=== PATIENT | female | born 1950 | race Caucasian/White ===

== ENCOUNTER 2024-06-17 19:19 | Inpatient (IN) | payer MEDICARE, OTHER, SELFPAY ==
[2024-06-17] VITALS (37 sets, daily range): BP systolic 62–104; BP diastolic 36–72; BMI 31.5
[2024-06-17 16:17] LABS: Glucose - Point of Care 346 mg/dl (70-99)
--- NOTE | 2024-06-17 16:46 | ED.GENMED ---
History of Present Illness
<Citlalli Colbert PA-C - Last Filed: 06/17/24 18:38>
General
Chief Complaint: Weakness
Source: patient and family
Time Seen by Provider: 06/17/24 16:30
History of Present Illness
History of Present Illness:
73yoF with a history of hypertension, hyperlipidemia, insulin-dependent diabetes, CKD, and bladder cancer with last treatment 6 months ago presenting with her sons for evaluation of generalized weakness. Son states that patient has been feeling
unwell for the past several days and has not been eating or drinking much. Patient had a fall around 3 AM this morning. Patient is not sure what exactly made her fall. Sons believe that it was due to her generalized weakness. Patient was on the
floor for about 2 to 3 hours. Patient became weaker this morning prompting her to come to the ED. Patient states her only current complaint is fatigue. Blood pressure is 78/36 on arrival. She denies any fevers, vomiting, diarrhea, chest pain,
shortness of breath, hematochezia, melena.
Phy Exam
<Citlalli Colbert PA-C - Last Filed: 06/17/24 18:38>
Physical Exam
Physical Exam:
Patient ill appearing, fatigued. She is alert and answering questions.
General Physical Exam
General Presentation: moderate distress
General Skin: warm and dry
ENT Exam
ENT Exam: normocephalic
Additional ENT: No external signs of head trauma
Eye Exam
Eye Exam: PERRL
Cardiovascular Exam
Cardiovascular Exam: tachycardia
Pulmonary Exam
Pulmonary Exam: lungs clear, no respiratory distress, no crackles and no wheezing
Gastrointestinal Exam
Gastrointestinal Exam: soft, non distended and tender (+Mild tenderness in suprapubic and LLQ regions)
Neurological Exam
Neurological Exam: alert and other (Moves all extremities on command)
Tristin Coma Scale
Eye Opening: Spontaneous
Verbal Response: Oriented
Motor Response: Obeys Commands
GCS Total Score: 15
Musculoskeletal Exam
Musculoskeletal Exam: other (No C/T/L spine tenderness)
Skin Exam
Skin Exam: normal color and warm/dry
<Shirley Marmolejo DO - Last Filed: 06/18/24 06:19>
Tristin Coma Scale
GCS Total Score: 15
Course
<Citlalli Colbert PA-C - Last Filed: 06/17/24 18:38>
Orders/Labs/Results
Orders:
Orders
06/17/24 Dinner
NPO
Allow oral meds: Yes
Allow clear liquids: Sips of Clears
06/17/24 16:28
Electrocardiogram (*1) Urgent
Reason for Study: Fatigue / Weakness
EKG- Treatment ONCE
06/17/24 16:35
Complete Blood Count/With Diff Urgent
Comprehensive Metabolic Panel Urgent
Creatine Phosphokinase Urgent
Comment: ADD ON
Direct Bilirubin Urgent
Comment: ADD ON
GGTP Urgent
Comment: ADD ON
Magnesium Urgent
Comment: ADD ON
Manual Differential Urgent
06/17/24 16:40
COVID-19 Antigen Urgent
Source: Nasal Swab
Influenza A+B Rapid Molecular Urgent
SHELIA Source: Nasal Swab
Specimen Description:
06/17/24 16:42
0.9% Sodium Chloride 1000 ml [Nss] 2,000 ml IV BOLUS
CR Chest Portable - 1 View Urgent
Comment:
Reason For Exam: Hypotension
Reason Study Needs to be Portable: Patient Unstable
06/17/24 16:45
CT Head W/o Iv Contrast Urgent
Comment:
Reason For Exam: Unwitnessed fall, weakness
06/17/24 16:48
Add On- LAB Urgent
Tests Added?: magnesium
06/17/24 16:49
Lactate Level [Lactic Acid] Urgent
PTT Urgent
Prothrombin Time Urgent
Blood Culture Routine
SHELIA Source: Blood/Venous
Specimen Description:
06/17/24 16:50
Troponin I Urgent
Blood Culture Urgent
SHELIA Source: Blood/Venous
Specimen Description:
06/17/24 16:51
Urinalysis Reflex To Culture Urgent
Date Specimen was Collected: 06/17/24
Time Specimen was Collected: 16:51
Urine Microscopic Reflex Cult Urgent
Urine Culture Urgent
SHELIA Source: U
Specimen Description:
Date Specimen was Collected: 06/17/24
Time Specimen was Collected: 16:51
06/17/24 17:10
Lactated Ringers [Lr] 1,000 ml IV BOLUS
06/17/24 17:11
Piperacillin/Tazo 4.5 Gram [Zosyn] 4.5 gram in 100 ml IV NOW
06/17/24 17:29
CT Chest/abd/pel Wo Iv Cont Urgent
Comment:
Reason For Exam: Sepsis, hypotension
06/17/24 17:35
Bedside Glucose- Treatment Q1H
IV Insert/Care/Rem.- Treatment PRN
06/17/24 17:42
Venous Blood Gas Urgent
%Oxygen/Room Air: room air
NORepinephrine 4 MG/250 ML [Levophed] 4 mg in 250 ml IV NOW
Initial dose in mcg/min, then titrate:: 2
Titrate to keep:: MAP > 65 mmHg
Titrate by mcg/min:: 1-2 mcg/min
Frequency of titrations (minutes):: 5
Maximum dose in ICU in mcg/min:: 30
Maximum dose in IMU in mcg/min:: 8
Maximum dose in IVU in mcg/min:: 4
Begin to taper infusion when:: Remained at goal for 4hrs
Taper by mcg/min:: 1-2 mcg/min
Frequency of taper (minutes) if patient maintains goal:: 30
Taper to off?: Yes
If infusion off & no longer maintaining goal:: Contact Provider
06/17/24 17:44
Reg Insulin 100 Units/100 ml [Novolin R Insulin Infusion] 100 units in 100 ml IV NOW
06/17/24 18:00
KCl 20 Meq/0.9%Sodchl 1000 ml [NSS with KCL 20 MEQ] 20 meq in 1,000 ml IV 250 mls/hr
06/17/24 18:21
Admit/Transfer Patient As Directed
Co-Sign Provider:
Level of Care: Inpatient admission
Assign to:: ICU
Physician / Group: Hyun
Diagnosis: Septic shock, KRISTEN
Reason for Hospitalization: Sepsis, KRISTEN, Flu B
Expected length of stay greater than two midnights?: Yes
ELOS- Estimated Length of Stay in days: 5
I certify the patient meets the requirements for IP care: Yes
PRN Pain Medication Management As Directed
May give lesser potent ordered pain med per pt: Yes
preference::
Protocol:: Medication orders for pain may be administered in a
manner that supports deferring to patient preference
when the pt is:
- Requesting an ordered lesser potent pain medication.
Least to most potent pain medications are defined
as: acetaminophen < NSAID < tramadol < opioids
(morphine, oxycodone, hydromorphone).
- Requesting a lesser dose of the same medication IF
ORDERED.
- Requesting a less intrusive route of administration
if both routes are prescribed by the provider (PO <
IV).
06/17/24 18:22
Code Status As Directed
Resuscitation Status: Full Code
06/17/24 18:41
Aspirin Chewable [Low Strength Aspirin] 324 mg PO NOW STA
06/17/24 18:45
Add On- LAB Routine
Tests Added?: direct bilirubin, GGT
Vancomycin [Vancocin] 2,000 mg 0.9% Sodium Chloride 500 ml [Nss] 500 ml IV NOW
06/17/24 19:44
B-Hydroxybutyrate Urgent
Basic Metabolic Panel Q2H
06/17/24 20:00
VANCOMYCIN Pharmacy to Dose [VANCOCIN Pharmacy to Dose] 1 each Pharmacy To Prepare [Call Pharmacy To Prepare] 0 ml IV PER PROTOCOL
06/17/24 20:23
Acetaminophen [Tylenol] 650 mg PO Q6HPRN PRN
KCl 20 Meq/0.9%Sodchl 1000 ml [NSS with KCL 20 MEQ] 20 meq in 1,000 ml IV 150 mls/hr
Oseltamivir Phosphate [Tamiflu] 30 mg PO DAILY
Reg Insulin 100 Units/100 ml [Novolin R Insulin Infusion] 100 units in 100 ml IV PER PROTOCOL
Initial dose in units/hr, then titrate:: 9
06/17/24 20:23
Plastics Tooling Engineer Consult Routine
Consulting Provider: Shailesh Baker
Was physician already notified: Yes
Activity As Directed
Activity Level: Bedrest
Bedside Glucose Monitoring As Directed
Frequency: Q1H
I&O [Intake/ Output] As Directed
Frequency: q12h
Notify MD As Directed
Notify physician if: Nurse to contact provider when glucose reaches 250 to obtain orders for D5 0.45 NaCl
Vital Signs As Directed
Frequency: Per unit guidelines
DX Deep Vein Thrombosis Video Routine
06/17/24 20:59
Basic Metabolic Panel Q2
06/17/24 23:00
Lactic Acid Routine
Troponin I Q6H
06/18/24 00:00
Heparin 5,000 units SC Q8
Piperacillin/Tazo 2.25 Gram [Zosyn] 2.25 grams in 50 ml IV Q8H
06/18/24 06:10
CBC/With Diff [Complete Blood Count/With Diff] IN AM
CMP [Comprehensive Metabolic Panel] IN AM
Glycohemoglobin (HgbA1c) IN AM
Troponin I Q6H
Vancomycin Random IN AM
06/18/24 08:00
Aspirin Chewable [Low Strength Aspirin] 81 mg PO DAILY
06/18/24 11:00
Troponin I Q6H
06/19/24 06:00
CBC/With Diff [Complete Blood Count/With Diff] IN AM
CMP [Comprehensive Metabolic Panel] IN AM
Abnormal Lab Results
06/17/24 06/17/24 06/17/24
16:15 16:35 16:49
WBC 28.6 H 10^3/uL
(4.8-10.8)
MCH 31.3 H pg
(27.0-31.0)
Plt Count 60 L 10^3/uL
(130-400)
MPV 11.1 H fL
(7.4-10.4)
Abs Neuts (Manual) 18.3 H 10^3/uL
(1.4-6.5)
Band Neutrophils 16 H %
(0-3)
Lymphocytes (Manual) 8 L %
(20-51)
Monocytes (Manual) 11 H %
(2-9)
PT 14.8 H Sec
(11.4-14.6)
APTT 38.1 H Sec
(23.4-35.0)
VBG pH
VBG pCO2
VBG pO2
VBG HCO3
Carbon Dioxide 10 L* mmol/L
(22-30)
BUN 71 H mg/dl
(7-17)
Creatinine 4.9 H* mg/dL
(0.6-1.0)
Glucose 329 H mg/dl
(70-99)
Lactic Acid 5.8 H* mmol/L
(0.7-2.0)
Total Bilirubin 6.2 H mg/dl
(0.2-1.3)
Direct Bilirubin 1.2 H mg/dl
(0.0-0.4)
GGT 859 H U/L
(12-43)
AST 396 H U/L
(14-36)
ALT 233 H U/L
(0-35)
Alkaline Phosphatase 190 H U/L
(38-126)
Creatine Kinase 4572 H U/L
(30-135)
Troponin I
Total Protein 6.1 L g/dl
(6.3-8.2)
Urine Ketones
Ur Occult Blood Reflex
Urine Nitrite (Reflex)
Urine Bilirubin
Leukocyte Esterase Rfl
Urine WBC (Reflex)
Urine Glucose
Urine Albumin (Reflex)
POC Glucose 346 H mg/dl
(70-99)
06/17/24 06/17/24 06/17/24
16:50 16:51 17:42
WBC
MCH
Plt Count
MPV
Abs Neuts (Manual)
Band Neutrophils
Lymphocytes (Manual)
Monocytes (Manual)
PT
APTT
VBG pH 7.23 L
(7.32-7.43)
VBG pCO2 34 L mmHg
(35-48)
VBG pO2 53 H mmHg
(30-50)
VBG HCO3 14.2 L mmol/L
(22-27)
Carbon Dioxide
BUN
Creatinine
Glucose
Lactic Acid
Total Bilirubin
Direct Bilirubin
GGT
AST
ALT
Alkaline Phosphatase
Creatine Kinase
Troponin I 7.940 H* ng/ml
Total Protein
Urine Ketones Trace A
(Negative)
Ur Occult Blood Reflex 4+ A
(Negative)
Urine Nitrite (Reflex) Positive A
(Negative)
Urine Bilirubin 2+ A
(Negative)
Leukocyte Esterase Rfl 2+ A
(Negative)
Urine WBC (Reflex) >100 A /HPF
(0-5)
Urine Glucose 1+ A
(Negative)
Urine Albumin (Reflex) 3+ A
(Neg - Trace)
POC Glucose
06/17/24 06/17/24
18:08 19:05
WBC
MCH
Plt Count
MPV
Abs Neuts (Manual)
Band Neutrophils
Lymphocytes (Manual)
Monocytes (Manual)
PT
APTT
VBG pH
VBG pCO2
VBG pO2
VBG HCO3
Carbon Dioxide
BUN
Creatinine
Glucose
Lactic Acid
Total Bilirubin
Direct Bilirubin
GGT
AST
ALT
Alkaline Phosphatase
Creatine Kinase
Troponin I
Total Protein
Urine Ketones
Ur Occult Blood Reflex
Urine Nitrite (Reflex)
Urine Bilirubin
Leukocyte Esterase Rfl
Urine WBC (Reflex)
Urine Glucose
Urine Albumin (Reflex)
POC Glucose 287 H mg/dl 285 H mg/dl
(70-99) (70-99)
06/17/24 16:35
06/17/24 17:32
Vital Signs
Initial and Last Documented VS:
Initial Vital Signs
Temp Pulse Resp BP Pulse Ox
97.3 F 115 20 78/36 94
06/17/24 16:14 06/17/24 16:14 06/17/24 16:14 06/17/24 16:14 06/17/24 16:14
Last Documented Vital Signs
Temp Pulse Resp BP Pulse Ox
98.8 F 93 28 99/61 94
06/18/24 01:00 06/18/24 04:30 06/18/24 04:30 06/18/24 04:30 06/18/24 04:30
<Shirley Marmolejo, DO - Last Filed: 06/18/24 06:19>
Orders/Labs/Results
Orders:
Orders
06/17/24 Dinner
NPO
Allow oral meds: Yes
Allow clear liquids: Sips of Clears
06/17/24 16:28
Electrocardiogram (*1) Urgent
Reason for Study: Fatigue / Weakness
EKG- Treatment ONCE
06/17/24 16:35
Complete Blood Count/With Diff Urgent
Comprehensive Metabolic Panel Urgent
Creatine Phosphokinase Urgent
Comment: ADD ON
Direct Bilirubin Urgent
Comment: ADD ON
GGTP Urgent
Comment: ADD ON
Magnesium Urgent
Comment: ADD ON
Manual Differential Urgent
06/17/24 16:40
COVID-19 Antigen Urgent
Source: Nasal Swab
Influenza A+B Rapid Molecular Urgent
SHELIA Source: Nasal Swab
Specimen Description:
06/17/24 16:42
0.9% Sodium Chloride 1000 ml [Nss] 2,000 ml IV BOLUS
CR Chest Portable - 1 View Urgent
Comment:
Reason For Exam: Hypotension
Reason Study Needs to be Portable: Patient Unstable
06/17/24 16:45
CT Head W/o Iv Contrast Urgent
Comment:
Reason For Exam: Unwitnessed fall, weakness
06/17/24 16:48
Add On- LAB Urgent
Tests Added?: magnesium
06/17/24 16:49
Lactate Level [Lactic Acid] Urgent
PTT Urgent
Prothrombin Time Urgent
Blood Culture Routine
SHELIA Source: Blood/Venous
Specimen Description:
06/17/24 16:50
Troponin I Urgent
Blood Culture Urgent
SHELIA Source: Blood/Venous
Specimen Description:
06/17/24 16:51
Urinalysis Reflex To Culture Urgent
Date Specimen was Collected: 06/17/24
Time Specimen was Collected: 16:51
Urine Microscopic Reflex Cult Urgent
Urine Culture Urgent
SHELIA Source: U
Specimen Description:
Date Specimen was Collected: 06/17/24
Time Specimen was Collected: 16:51
06/17/24 17:10
Lactated Ringers [Lr] 1,000 ml IV BOLUS
06/17/24 17:11
Piperacillin/Tazo 4.5 Gram [Zosyn] 4.5 gram in 100 ml IV NOW
06/17/24 17:29
CT Chest/abd/pel Wo Iv Cont Urgent
Comment:
Reason For Exam: Sepsis, hypotension
06/17/24 17:35
Bedside Glucose- Treatment Q1H
IV Insert/Care/Rem.- Treatment PRN
06/17/24 17:42
Venous Blood Gas Urgent
%Oxygen/Room Air: room air
NORepinephrine 4 MG/250 ML [Levophed] 4 mg in 250 ml IV NOW
Initial dose in mcg/min, then titrate:: 2
Titrate to keep:: MAP > 65 mmHg
Titrate by mcg/min:: 1-2 mcg/min
Frequency of titrations (minutes):: 5
Maximum dose in ICU in mcg/min:: 30
Maximum dose in IMU in mcg/min:: 8
Maximum dose in IVU in mcg/min:: 4
Begin to taper infusion when:: Remained at goal for 4hrs
Taper by mcg/min:: 1-2 mcg/min
Frequency of taper (minutes) if patient maintains goal:: 30
Taper to off?: Yes
If infusion off & no longer maintaining goal:: Contact Provider
06/17/24 17:44
Reg Insulin 100 Units/100 ml [Novolin R Insulin Infusion] 100 units in 100 ml IV NOW
06/17/24 18:00
KCl 20 Meq/0.9%Sodchl 1000 ml [NSS with KCL 20 MEQ] 20 meq in 1,000 ml IV 250 mls/hr
06/17/24 18:21
Admit/Transfer Patient As Directed
Co-Sign Provider:
Level of Care: Inpatient admission
Assign to:: ICU
Physician / Group: Hyun
Diagnosis: Septic shock, KRISTEN
Reason for Hospitalization: Sepsis, KRISTEN, Flu B
Expected length of stay greater than two midnights?: Yes
ELOS- Estimated Length of Stay in days: 5
I certify the patient meets the requirements for IP care: Yes
PRN Pain Medication Management As Directed
May give lesser potent ordered pain med per pt: Yes
preference::
Protocol:: Medication orders for pain may be administered in a
manner that supports deferring to patient preference
when the pt is:
- Requesting an ordered lesser potent pain medication.
Least to most potent pain medications are defined
as: acetaminophen < NSAID < tramadol < opioids
(morphine, oxycodone, hydromorphone).
- Requesting a lesser dose of the same medication IF
ORDERED.
- Requesting a less intrusive route of administration
if both routes are prescribed by the provider (PO <
IV).
06/17/24 18:22
Code Status As Directed
Resuscitation Status: Full Code
06/17/24 18:41
Aspirin Chewable [Low Strength Aspirin] 324 mg PO NOW STA
06/17/24 18:45
Add On- LAB Routine
Tests Added?: direct bilirubin, GGT
Vancomycin [Vancocin] 2,000 mg 0.9% Sodium Chloride 500 ml [Nss] 500 ml IV NOW
06/17/24 19:44
B-Hydroxybutyrate Urgent
Basic Metabolic Panel Q2H
06/17/24 20:00
VANCOMYCIN Pharmacy to Dose [VANCOCIN Pharmacy to Dose] 1 each Pharmacy To Prepare [Call Pharmacy To Prepare] 0 ml IV PER PROTOCOL
06/17/24 20:23
Acetaminophen [Tylenol] 650 mg PO Q6HPRN PRN
KCl 20 Meq/0.9%Sodchl 1000 ml [NSS with KCL 20 MEQ] 20 meq in 1,000 ml IV 150 mls/hr
Oseltamivir Phosphate [Tamiflu] 30 mg PO DAILY
Reg Insulin 100 Units/100 ml [Novolin R Insulin Infusion] 100 units in 100 ml IV PER PROTOCOL
Initial dose in units/hr, then titrate:: 9
06/17/24 20:23
Plastics Tooling Engineer Consult Routine
Consulting Provider: Shailesh Baker
Was physician already notified: Yes
Activity As Directed
Activity Level: Bedrest
Bedside Glucose Monitoring As Directed
Frequency: Q1H
I&O [Intake/ Output] As Directed
Frequency: q12h
Notify MD As Directed
Notify physician if: Nurse to contact provider when glucose reaches 250 to obtain orders for D5 0.45 NaCl
Vital Signs As Directed
Frequency: Per unit guidelines
DX Deep Vein Thrombosis Video Routine
06/17/24 20:59
Basic Metabolic Panel Q2
06/17/24 23:00
Lactic Acid Routine
Troponin I Q6H
06/18/24 00:00
Heparin 5,000 units SC Q8
Piperacillin/Tazo 2.25 Gram [Zosyn] 2.25 grams in 50 ml IV Q8H
06/18/24 06:10
CBC/With Diff [Complete Blood Count/With Diff] IN AM
CMP [Comprehensive Metabolic Panel] IN AM
Glycohemoglobin (HgbA1c) IN AM
Troponin I Q6H
Vancomycin Random IN AM
06/18/24 08:00
Aspirin Chewable [Low Strength Aspirin] 81 mg PO DAILY
06/18/24 11:00
Troponin I Q6H
06/19/24 06:00
CBC/With Diff [Complete Blood Count/With Diff] IN AM
CMP [Comprehensive Metabolic Panel] IN AM
Abnormal Lab Results
06/17/24 06/17/24 06/17/24
16:15 16:35 16:49
WBC 28.6 H 10^3/uL
(4.8-10.8)
MCH 31.3 H pg
(27.0-31.0)
Plt Count 60 L 10^3/uL
(130-400)
MPV 11.1 H fL
(7.4-10.4)
Abs Neuts (Manual) 18.3 H 10^3/uL
(1.4-6.5)
Band Neutrophils 16 H %
(0-3)
Lymphocytes (Manual) 8 L %
(20-51)
Monocytes (Manual) 11 H %
(2-9)
PT 14.8 H Sec
(11.4-14.6)
APTT 38.1 H Sec
(23.4-35.0)
VBG pH
VBG pCO2
VBG pO2
VBG HCO3
Carbon Dioxide 10 L* mmol/L
(22-30)
BUN 71 H mg/dl
(7-17)
Creatinine 4.9 H* mg/dL
(0.6-1.0)
Glucose 329 H mg/dl
(70-99)
Lactic Acid 5.8 H* mmol/L
(0.7-2.0)
Total Bilirubin 6.2 H mg/dl
(0.2-1.3)
Direct Bilirubin 1.2 H mg/dl
(0.0-0.4)
GGT 859 H U/L
(12-43)
AST 396 H U/L
(14-36)
ALT 233 H U/L
(0-35)
Alkaline Phosphatase 190 H U/L
(38-126)
Creatine Kinase 4572 H U/L
(30-135)
Troponin I
Total Protein 6.1 L g/dl
(6.3-8.2)
Urine Ketones
Ur Occult Blood Reflex
Urine Nitrite (Reflex)
Urine Bilirubin
Leukocyte Esterase Rfl
Urine WBC (Reflex)
Urine Glucose
Urine Albumin (Reflex)
POC Glucose 346 H mg/dl
(70-99)
06/17/24 06/17/24 06/17/24
16:50 16:51 17:42
WBC
MCH
Plt Count
MPV
Abs Neuts (Manual)
Band Neutrophils
Lymphocytes (Manual)
Monocytes (Manual)
PT
APTT
VBG pH 7.23 L
(7.32-7.43)
VBG pCO2 34 L mmHg
(35-48)
VBG pO2 53 H mmHg
(30-50)
VBG HCO3 14.2 L mmol/L
(22-27)
Carbon Dioxide
BUN
Creatinine
Glucose
Lactic Acid
Total Bilirubin
Direct Bilirubin
GGT
AST
ALT
Alkaline Phosphatase
Creatine Kinase
Troponin I 7.940 H* ng/ml
Total Protein
Urine Ketones Trace A
(Negative)
Ur Occult Blood Reflex 4+ A
(Negative)
Urine Nitrite (Reflex) Positive A
(Negative)
Urine Bilirubin 2+ A
(Negative)
Leukocyte Esterase Rfl 2+ A
(Negative)
Urine WBC (Reflex) >100 A /HPF
(0-5)
Urine Glucose 1+ A
(Negative)
Urine Albumin (Reflex) 3+ A
(Neg - Trace)
POC Glucose
06/17/24 06/17/24
18:08 19:05
WBC
MCH
Plt Count
MPV
Abs Neuts (Manual)
Band Neutrophils
Lymphocytes (Manual)
Monocytes (Manual)
PT
APTT
VBG pH
VBG pCO2
VBG pO2
VBG HCO3
Carbon Dioxide
BUN
Creatinine
Glucose
Lactic Acid
Total Bilirubin
Direct Bilirubin
GGT
AST
ALT
Alkaline Phosphatase
Creatine Kinase
Troponin I
Total Protein
Urine Ketones
Ur Occult Blood Reflex
Urine Nitrite (Reflex)
Urine Bilirubin
Leukocyte Esterase Rfl
Urine WBC (Reflex)
Urine Glucose
Urine Albumin (Reflex)
POC Glucose 287 H mg/dl 285 H mg/dl
(70-99) (70-99)
06/17/24 16:35
06/17/24 17:32
Vital Signs
Initial and Last Documented VS:
Initial Vital Signs
Temp Pulse Resp BP Pulse Ox
97.3 F 115 20 78/36 94
06/17/24 16:14 06/17/24 16:14 06/17/24 16:14 06/17/24 16:14 06/17/24 16:14
Last Documented Vital Signs
Temp Pulse Resp BP Pulse Ox
98.8 F 93 28 99/61 94
06/18/24 01:00 06/18/24 04:30 06/18/24 04:30 06/18/24 04:30 06/18/24 04:30
[place];Citlalli Colbert PA-C - Last Filed: 06/17/24 18:38>
MDM/Problems Addressed
Differential Diagnosis Includes:
73yoF here with generalized weakness x several days. Also had a fall last night. Patient hypotensive on arrival to [facility]. Fingerstick glucose in triage is 346. She is ill-appearing on exam. Her only complaint is fatigue. She has mild suprapubic
and left lower quadrant tenderness on exam. Exam otherwise nonfocal. Differential diagnosis includes but is not limited to: Dehydration, KRISTEN, sepsis, DKA
Initial ED plan: Two large bore IVs established by nursing staff. 2L IV NS hung to gravity. Check full medical workup including blood cultures, cardiac labs, CK, EKG, UA, and CT head and abdomen.
<Citlalli Colbert PA-C - Last Filed: 06/17/24 18:38>
*EKG
Interpreted by ED Provider?: Yes
EKG Intrepretation Date: 06/17/24
Heart Rate: 109
Rate: tachycardiac
Rhythm: sinus
Interval: long QT (QTc 570)
QRS Pattern: normal QRS
Ischemia: non-specific ST changes
<Shirley Marmolejo DO - Last Filed: 06/18/24 06:19>
*Critical Care Note
Total Time (30-74mins, 75-104mins- exclusive of procedures): 60
comment:
The high probability of a clinically significant, sudden or life threatening deterioration of the cardiovascular, distributive system(s) required my full and direct attention, intervention and personal management. The aggregate critical care time
was 45 minutes. This time is in addition to time spent performing reported procedures but includes the following:
[x] Data Review and interpretation
[x] Patient assessment and monitoring of vital signs
[x] Documentation
[x] Medication orders and management
<Citlalli Colbert PA-C - Last Filed: 06/17/24 18:38>
Update Note
Update Note:
Small amount of urine obtained on straight cath by nursing staff. Urine noted to be purulent. UA is nitrite positive with >100 WBCs. She is also positive for influenza B. WBC 28 and lactate 5.8. Bicarb 10. CK 4500. Troponin 7.9. No ST elevations
seen on EKG. IV Zosyn ordered. Patient received 30 cc/kg of IV fluids with persistent hypotension. Levophed was initiated. Insulin drip also ordered. Patient admitted for further management.
ED Attending Note
<Citlalli Colbert PA-C - Last Filed: 06/17/24 18:38>
-
Portions of this chart may have been created with voice recognition software.� Occasional wrong word or��sound alike� substitutions may have occurred due to the inherent limitations of voice recognition software.
<Shirley Marmolejo DO - Last Filed: 06/18/24 06:19>
ED Attending Note
Patient seen and examined by attending physician: Yes
I performed the substantive portion of visit, reviewed & personally made and approve the management plan that is documented in note by myself or BETHANY.: Yes
I performed a history and physical exam of patient and discussed management with resident, I reviewed resident's note and agree with documented findings and plan of care.: Yes
ED Attending Note:
73-year-old female with history of hypertension, hyperlipidemia, diabetes presenting to the emergency department for generalized weakness and fall. Patient presents with family. Patient notes that she had a fall out of bed around 3 AM last
evening, unclear details. Patient herself is currently denying any acute complaints, however family at bedside reports for the past 3 days she has been complaining of generalized weakness and fatigue, and generally not feeling well. No report of
any fever. Patient denying any chest pain, difficulty breathing, cough. No recent sick contacts. Pain or vomiting. Vital signs are abnormal with tachycardia and hypotension.
On exam, patient is unwell in appearance, however no acute distress. She is awake, alert. Unremarkable cardiac and pulmonary exam. No physical signs of trauma. No midline cervical tenderness. On abdominal exam, generalized tenderness to the
lower abdomen, most notable in the suprapubic abdomen. Son at bedside reports history of bladder cancer in the past, with last check about 6 months ago. Pelvis is stable, lower extremities with normal range of motion, no deformities. Given
patient's complaint and presenting vital signs, concerning for severe dehydration versus sepsis. Patient currently afebrile. Plan for laboratory analysis, lactic acid, blood culture. Patient with IV fluids running. Will obtain urinalysis and CT
abdominal imaging. Will also swab for COVID and flu.
17:00 - Blood pressure is responding to fluids. Patient is flu positive, which could be contributing to patient's symptoms. Per nurse, patient straight catheter urine, purulent with minimal blood. And concern for possible infectious component to
patient's symptoms
17:15 -urine is grossly positive for infection and lactic acid is greater than 4. In the setting of hypotension with elevated lactic acid, concern for septic shock. Will administer full 30 cc/kg fluid bolus. Broad-spectrum antibiotics ordered.
Plan for admission, pending abdominal imaging.
17:30 -patient with metabolic acidosis, gap with hyperglycemia. Concern for DKA, likely secondary process from underlying infection and septic shock. Will start insulin drip. Blood pressure continues to improve, however remains low, may need
Levophed. Patient with acute kidney injury and elevated troponin, suspected ischemic demand. No STEMI criteria on EKG.
18:10 -CT shows concern for staghorn calculi to the right kidney, with concern for emphysematous pyelitis. Patient to be admitted to the ICU. Blood pressure remains low, plan to start Levophed
Discharge Plan
Departure
Patient Disposition: Admit
Date of Disposition: 06/17/24
Time of Disposition: 17:51
Presentation/result/management discussed w/ accepting MD/DO: Hospitalist
Discharge Problem:
Septic shock, Diabetic ketoacidosis, Urinary tract infection, Influenza B, Acute kidney injury, Rhabdomyolysis, Elevated troponin
Interventions
Interventions:
*Risk Screen - Suicide Last Done: 06/17/24 16:14
*General Assessment Last Done: 06/17/24 16:14
*Neglect/Abuse Screening Last Done: 06/17/24 16:14
ED- Fall Risk Assessment Last Done: 06/17/24 20:14
*ED COVID-19 Vaccine History Last Done: 06/17/24 20:14
*Nursing Disposition Last Done: 06/17/24 20:14
ED- Cardiac Assessment Last Done: 06/17/24 17:01
ED- Neurological Assessment Last Done: 06/17/24 17:01
ED- Pulmonary Assessment Last Done: 06/17/24 17:01
Discharge Date and Time
Discharge Date/Time: 06/17/24 20:15
[2024-06-17] MEDS: NSS 2000 IV (16:53)
[2024-06-17 16:57] LABS: Urine Albumin 3+ (Neg - Trace); Urine Bilirubin 2+ (Negative); Urine Character Very Cloudy (Clear); Urine Color Amber; Urine Glucose 1+ (Negative); Urine Ketone Trace (Negative); Urine Leukocyte 2+ (Negative); Urine Nitrite Positive (Negative); Urine Occult Blood 4+ (Negative); Urine Specific Gravity 1.015 (<1.030); Urine Urobilinogen 1+ (Neg - 1+)
[2024-06-17 17:09] LABS: Urine White Cell >100 /HPF (0-5)
[2024-06-17 17:10] LABS: INR 1.18; PT 14.8 Sec (11.4-14.6)
[2024-06-17 17:11] LABS: APTT 38.1 Sec (23.4-35.0)
[2024-06-17 17:12] LABS: Lactic Acid 5.8 mmol/L (0.7-2.0)
[2024-06-17] MEDS: LR 1000 IV (17:17)
[2024-06-17] MEDS: ZOSYN 100 IV (17:19)
[2024-06-17 17:20] LABS: Hematocrit 42.2 % (37.0-47.0); Hemoglobin 15.3 g/dL (12.0-16.0); Mean Corp Hgb Conc. 36.3 g/dL (33.0-37.0); Mean Corpuscular Hgb 31.3 pg (27.0-31.0); Mean Corpuscular Volume 86.3 fL (81.0-99.0); Mean Platelet Volume 11.1 fL (7.4-10.4); Platelet Count 60 10^3/uL (130-400); Red Blood Cell Count 4.89 10^6/uL (4.20-5.40); Red Cell Dist. Width 14.5 % (11.5-14.5); White Blood Cell Count 28.6 10^3/uL (4.8-10.8)
[2024-06-17 17:27] LABS: Absolute Neutrophils -Man Diff 18.3 10^3/uL (1.4-6.5); Band Neutrophils 16 % (0-3); Eosinophils 2 % (0-6); Lymphocytes 8 % (20-51); Metamyelocytes 13 % (-); Monocytes 11 % (2-9); Myelocytes 2 % (-); Segmented Neutrophils 48 % (42-75)
[2024-06-17 17:28] LABS: Normal RBC Morphology Yes; Platelets Checked Yes; Total Cells Counted 100
[2024-06-17 17:29] LABS: ALT (SGPT) 233 U/L (0-35); AST (SGOT) 396 U/L (14-36); Albumin 4.1 g/dl (3.5-5.0); Alkaline Phosphatase 190 U/L (38-126); Blood Urea Nitrogen 71 mg/dl (7-17); Calcium 10.2 mg/dl (8.4-10.2); Carbon Dioxide 10 mmol/L (22-30); Chloride 99 mmol/L (98-107); Creatine Phosphokinase 4572 U/L (30-135); Estimated Creatinine Clearance 11 ml/min; Glucose 329 mg/dl (70-99); Magnesium 1.7 mg/dl (1.6-2.3); Sodium 135 mmol/L (135-145); Total Bilirubin 6.2 mg/dl (0.2-1.3); Total Protein 6.1 g/dl (6.3-8.2); eGFR 8.78
[2024-06-17 17:46] LABS: Venous Blood Gas B.E. -12.3 mmol/L (-4 to +4); Venous Blood Gas HCO3 14.2 mmol/L (22-27); Venous Blood Gas O2 Sat % 83.7 %; Venous Blood Gas pCO2 34 mmHg (35-48); Venous Blood Gas pH 7.23 (7.32-7.43); Venous Blood Gas pO2 53 mmHg (30-50)
[2024-06-17] MEDS: LEVOPHED 250 IV (17:49)
[2024-06-17 18:10] LABS: Glucose - Point of Care 287 mg/dl (70-99)
[2024-06-17] MEDS: NOVOLIN R INSULIN INFUSION 100 IV (18:10)
--- NOTE | 2024-06-17 18:30 | HPS.HSE ---
Family Physician
-
Family Physician: NOT KNOW UNKNOWN - PT DOES
Chief Complaint
-
Weakness, cough, confusion
History of Present Illness
73-year-old female here complaining of generalized weakness, cough, anorexia. Family also noted confusion. Symptoms started 24 to 48 hours ago. Cough is dry in nature. No known sick contacts.
Did not eat or drink today. Last used her insulin yesterday. Has never been admitted to our hospital before.
Medical History
Past Medical History
Past Medical History: Reports Other
Additional Past Medical History:
DM2
Essential hypertension
Hyperlipidemia
Chronic kidney disease
Bladder cancer
Past Surgical History: Reports Cholecystectomy and Other (Bladder tumor resection)
Social History
Tobacco: Non-smoker
Alcohol: None
Drug: None
Living: With Family
Family History
Family History: Not pertinent
Allergies / Home Medications
Allergies reflects when Allergies were last updated in [employer].
Home Medications with original date entered in [employer]
Allergy/Medication List:
Allergies
Allergy/AdvReac Type Severity Reaction Status Date / Time
No Known Allergies Allergy Unverified 06/17/24 16:14
Home Medications
atorvastatin 40 mg tablet 40 mg PO DAILY 06/17/24
canagliflozin 100 mg tablet (Invokana) 100 mg PO DAILY 06/17/24
hydrochlorothiazide 25 mg tablet 5 mg PO DAILY 06/17/24
ramipril 5 mg capsule 5 mg PO DAILY 06/17/24
Review of Systems
-
History Source: Patient and Family
A 12 point ROS was completed and negative except as noted: Yes
Constitutional: Reports Fatigue
Respiratory: Reports Cough
Physical Exam
Vital Signs
Vital Signs
Temp Pulse Resp BP Pulse Ox
97.3 F 105 25 86/51 96
06/17/24 16:14 09/07/24 18:15 06/17/24 18:15 06/17/24 18:13 06/17/24 18:15
Physical Exam
General: Well Developed, Well Nourished, No Apparent Distress and Comfortable
HEENT: NormoCephalic and Anicteric; No Moist mucous membranes
Respiratory: Clear
Cardiac: S1/S2, Regular Rhythm and Tachycardia
GI: Soft, Non Tender and Non Distended
Genito-urinary: Deferred by me
Musculoskeletal: No Clubbing, No Cyanosis and No Edema
Skin: Warm and Dry
Neuro: Awake, Alert and Oriented
Hematologic/Lymphatic: No Lymphadenopathy
Psych: Calm
Laboratory Results
-
06/17/24 16:35
Laboratory Results
PT 14.8 Sec (11.4-14.6) H 06/17/24 16:49
INR 1.18 06/17/24 16:49
APTT 38.1 Sec (23.4-35.0) H 06/17/24 16:49
Lactic Acid 5.8 mmol/L (0.7-2.0) H* 06/17/24 16:49
Total Bilirubin 6.2 mg/dl (0.2-1.3) H 06/17/24 16:35
AST 396 U/L (14-36) H 06/17/24 16:35
ALT 233 U/L (0-35) H 06/17/24 16:35
Alkaline Phosphatase 190 U/L (38-126) H 06/17/24 16:35
Troponin I 7.940 ng/ml H* 06/17/24 16:50
Impression/Plan
-
Septic shock -source unclear. Differential diagnosis includes bacterial versus viral sepsis. Influenza B noted to be positive. Urinalysis is abnormal. Await blood and urine cultures.
Start broad-spectrum antibiotics. Start Tamiflu. Admit to ICU. Continue IV fluids. Consult ear pull machine operator.
Check COVID antigen. .
Lactic acidosis due to sepsis.
Acute metabolic encephalopathy -likely due to septic shock, KRISTEN, critical illness. CT head without acute disease.
KRISTEN -likely due to septic shock, volume depletion. Repeat labs in the morning after IV fluids. Severe Metabolic acidosis due to DKA.
DM2 with DKA -continue IV insulin, IV fluids. Admit to ICU. NPO. Check hemoglobin A1c. Monitor BMP. Etiology of DKA is likely septic shock. Check beta hydroxybutyrate
Elevated LFTs -etiology unclear but differential diagnosis includes sepsis and shock. Abdominal CT scan pending.
Non-STEMI -EKG reviewed, shows sinus tachycardia with age-indeterminate anterior lateral and inferior ST changes. Image uploaded to Dr. Nieves for review. Monitor troponins. Discussed with cardiology and they will see in consultation. She denies
chest pain or shortness of breath.
Thrombocytopenia -suspect acute. Baseline unavailable. Possibly due to septic shock. Monitor for now.
Acute nontraumatic rhabdomyolysis -suspect due to sepsis, shock, limited mobility.
Essential hypertension -hold home medications for hypotension, shock.
Hyperlipidemia -on atorvastatin, hold for now given rhabdomyolysis.
History of bladder cancer -treated with tumor resection, intravesicular chemotherapy
Obesity due to excess calories
Full code
Family updated at the bedside.
[2024-06-17] MEDS: NSS with KCL 20 MEQ 1000 IV ×2 (18:39→21:07)
[2024-06-17] MEDS: VANCOCIN 540 MG IV (18:59)
[2024-06-17] MEDS: LOW STRENGTH ASPIRIN 324 MG PO (19:02)
[2024-06-17 19:07] LABS: Glucose - Point of Care 285 mg/dl (70-99)
[2024-06-17 20:01] LABS: Direct Bilirubin 1.2 mg/dl (0.0-0.4); GGTP 859 U/L (12-43)
[2024-06-17 20:12] LABS: Blood Urea Nitrogen 66 mg/dl (7-17); Carbon Dioxide 10 mmol/L (22-30); Chloride 106 mmol/L (98-107); Estimated Creatinine Clearance 13 ml/min; Glucose 250 mg/dl (70-99); Potassium 3.9 mmol/L (3.5-5.1); Sodium 137 mmol/L (135-145); eGFR 10.27
[2024-06-17 20:16] LABS: B-Hydroxybutyrate 0.26 mmol/L (0.02-0.27)
[2024-06-17 20:28] LABS: Glucose - Point of Care 231 mg/dl (70-99)
--- NOTE | 2024-06-17 20:39 | W.PN.SEPSIS ---
Sepsis
Vital Signs
Temp Pulse Resp BP Pulse Ox
97.3 F 104 34 91/54 99
06/17/24 16:14 06/17/24 19:30 06/17/24 19:30 06/17/24 19:30 06/17/24 19:15
Physical Exam
Physical Exam:
A focused exam was performed after fluid resuscitation.
Capillary Refill
Bilateral Upper Extremity:
Lisa Time: Less than 3 sec
Bilateral Lower Extremity:
Lisa Time: Less than 3 sec
Pulse Evaluation
Bilateral Radial:
Pulse Evaluation: Present
Bilateral Dorsalis Pedis:
Pulse Evaluation: Present
--- NOTE | 2024-06-17 20:39 | PHA.VAN.IN ---
Assessment
- Assessment
Renal Function: Appears elevated from baseline
Maximum Temperature: 97.3
Concomitant Antimicrobials: piperacillin-tazobactam, oseltamivir
Plan
- Plan
Initial / Loading Dose: vanc 2000mg 06/17 18:59
Maintenance Regimen: dose by level
Monitoring: r 06/18 06
Pharmacokinetics Vancomycin I
- -
Patient Age: 73
Patient Sex: Female
Vancomycin Day #: 1
Indication: Bacteremia
Requesting Provider: Dr Purvis
Pertinent Antimicrobial Allergies:
no known allergies
Height / Weight:
Height 5 ft 6 in
Actual Weight 88.6 kg
Pertinent Past Medical History: DKA
- Vital Signs / Lab Results
Temp Pulse Resp BP Pulse Ox
97.3 F 104 34 91/54 99
06/17/24 16:14 06/17/24 19:30 06/17/24 19:30 06/17/24 19:30 06/17/24 19:15
Lab Results - Hematology
06/17/24
16:35
WBC 28.6 H
Band Neutrophils 16 H
Lab Results - Chemistry
06/17/24 06/17/24 06/17/24
16:35 17:32 19:44
BUN 71 H Cancelled 66 H
Creatinine 4.9 H* Cancelled 4.3 H*
Estimated Creat Clear 11 Cancelled 13
Albumin 4.1
06/17/24
19:45
BUN Cancelled
Creatinine Cancelled
Estimated Creat Clear Cancelled
Albumin
06/17/24
16:49
Lactic Acid 5.8 H*
Lab Results - Urine
06/17/24
16:51
Urine Nitrite (Reflex) Positive A
Leukocyte Esterase Rfl 2+ A
Urine WBC (Reflex) >100 A
Microbiology Results
06/17/24 16:40 Influenza Types A & B (AKSHAT) - Final
Nasal Swab Influenza B Positive, NAAT
[2024-06-17 21:05] LABS: Glucose - Point of Care 204 mg/dl (70-99)
--- NOTE | 2024-06-17 21:14 | PTCARENOTE ---
Received pt. from ED approx 2029.
On norepi, and insulin gtt.
pt. is AAOx3, no neurological deficits noted.
Hypotensive, see norepi titration schedule. normothermic, sinus tach w/o ectopy.
GFR 8, has sensation to urinate but has not produced urine since arrival.
Trending bmp, troponin, lactic until cleared.
[2024-06-17 21:32] LABS: Blood Urea Nitrogen 64 mg/dl (7-17); Calcium 8.8 mg/dl (8.4-10.2); Carbon Dioxide 13 mmol/L (22-30); Chloride 107 mmol/L (98-107); Estimated Creatinine Clearance 13 ml/min; Glucose 190 mg/dl (70-99); Potassium 3.6 mmol/L (3.5-5.1); Sodium 139 mmol/L (135-145); eGFR 10.56
[2024-06-17] MEDS: TAMIFLU 30 MG PO (22:05)
[2024-06-17] MEDS: D5/0.45%NSS with KCL 20 MEQ 1000 IV (22:06)
[2024-06-17 22:08] LABS: Glucose - Point of Care 184 mg/dl (70-99)
[2024-06-17 23:16] LABS: Glucose - Point of Care 204 mg/dl (70-99)
[2024-06-17 23:31] LABS: Lactic Acid 3.5 mmol/L (0.7-2.0)
[2024-06-17 23:33] LABS: Blood Urea Nitrogen 68 mg/dl (7-17); Carbon Dioxide 15 mmol/L (22-30); Chloride 106 mmol/L (98-107); Estimated Creatinine Clearance 13 ml/min; Glucose 206 mg/dl (70-99); Potassium 4.1 mmol/L (3.5-5.1); Sodium 137 mmol/L (135-145); eGFR 10.56
[2024-06-18] VITALS (50 sets, daily range): BP systolic 86–109; BP diastolic 53–68; BMI 32.6
[2024-06-18] MEDS: HEPARIN 5000 UNITS SC ×3 (00:03→16:47)
[2024-06-18] MEDS: ZOSYN 50 IV ×4 (00:03→21:31)
[2024-06-18 00:12] LABS: Glucose - Point of Care 216 mg/dl (70-99)
--- NOTE | 2024-06-18 00:15 | PTCARENOTE ---
Remains on Norepi gtt. Maps have been 64-71.
IV fluids changed to d5/0.45/20meq. See insulin flowsheet for titration details.
Assessment of patient remains unchanged.
[2024-06-18 00:34] LABS: COVID-19 Antigen Negative (Negative)
[2024-06-18] MEDS: LEVOPHED 250 IV (00:58)
[2024-06-18 01:12] LABS: Glucose - Point of Care 242 mg/dl (70-99)
[2024-06-18 02:16] LABS: Glucose - Point of Care 260 mg/dl (70-99)
[2024-06-18] MEDS: TYLENOL 650 MG PO (02:30)
[2024-06-18 02:41] LABS: Blood Urea Nitrogen 67 mg/dl (7-17); Calcium 8.7 mg/dl (8.4-10.2); Carbon Dioxide 11 mmol/L (22-30); Chloride 107 mmol/L (98-107); Estimated Creatinine Clearance 15 ml/min; Glucose 269 mg/dl (70-99); Potassium 3.9 mmol/L (3.5-5.1); Sodium 138 mmol/L (135-145)
[2024-06-18 03:19] LABS: Glucose - Point of Care 275 mg/dl (70-99)
--- NOTE | 2024-06-18 03:39 | PTCARENOTE ---
Pt. assessment unchanged.
Titrating down Norepi, see titration flowsheet for details.
Recent Anion gap resulted to 20.
Remains on insulin gtt, d5/0.45/20 meq.
[2024-06-18] MEDS: D5/0.45%NSS with KCL 20 MEQ 1000 IV ×2 (04:05→15:14)
[2024-06-18 04:15] LABS: Glucose - Point of Care 262 mg/dl (70-99)
[2024-06-18 04:31] LABS: Lactic Acid 3.2 mmol/L (0.7-2.0)
[2024-06-18 06:07] LABS: Glucose - Point of Care 279 mg/dl (70-99)
[2024-06-18 06:19] LABS: Venous Blood Gas B.E. -10.6 mmol/L (-4 to +4); Venous Blood Gas HCO3 15.2 mmol/L (22-27); Venous Blood Gas O2 Sat % 91.4 %; Venous Blood Gas pCO2 33 mmHg (35-48); Venous Blood Gas pH 7.27 (7.32-7.43); Venous Blood Gas pO2 61 mmHg (30-50)
[2024-06-18 06:21] LABS: Venous Blood Gas O2 Therapy RA
[2024-06-18 06:26] LABS: Hematocrit 35.8 % (37.0-47.0); Hemoglobin 13.1 g/dL (12.0-16.0); Mean Corp Hgb Conc. 36.6 g/dL (33.0-37.0); Mean Corpuscular Hgb 32.3 pg (27.0-31.0); Mean Corpuscular Volume 88.2 fL (81.0-99.0); Mean Platelet Volume 11.5 fL (7.4-10.4); Platelet Count 48 10^3/uL (130-400); Red Blood Cell Count 4.06 10^6/uL (4.20-5.40); Red Cell Dist. Width 14.4 % (11.5-14.5); White Blood Cell Count 24.6 10^3/uL (4.8-10.8)
[2024-06-18] MEDS: MORPHINE SULFATE 1 MG IV (06:32)
[2024-06-18 06:46] LABS: Vancomycin Random 20.6 ug/ml
[2024-06-18 06:52] LABS: ALT (SGPT) 312 U/L (0-35); AST (SGOT) 440 U/L (14-36); Albumin 2.8 g/dl (3.5-5.0); Alkaline Phosphatase 153 U/L (38-126); Blood Urea Nitrogen 68 mg/dl (7-17); Calcium 8.8 mg/dl (8.4-10.2); Carbon Dioxide 11 mmol/L (22-30); Chloride 108 mmol/L (98-107); Estimated Creatinine Clearance 14 ml/min; Glucose 257 mg/dl (70-99); Magnesium 1.7 mg/dl (1.6-2.3); Phosphorus 3.2 mg/dl (2.5-4.5); Potassium 4.2 mmol/L (3.5-5.1); Sodium 136 mmol/L (135-145); Total Bilirubin 5.1 mg/dl (0.2-1.3); Total Protein 4.9 g/dl (6.3-8.2)
[2024-06-18 07:31] LABS: Glucose - Point of Care 249 mg/dl (70-99)
[2024-06-18] MEDS: TAMIFLU 30 MG PO (07:59)
[2024-06-18] MEDS: LOW STRENGTH ASPIRIN 81 MG PO (07:59)
--- NOTE | 2024-06-18 08:04 | W.CON.NEPH ---
Consultation
-
Date/Time Consultation Requested: 06/18/2024 8:00 AM
Date/Time Consultation Performed: 06/18/24 8:00
Requesting Provider: Dr. Purvis
Performing Provider: Dr. Mtz
Reason for Consultation: Acute kidney injury\\CKD
Medical History
-
Chief Complaint: Acute kidney injury\\CKD
History of Present Illness:
The patient is a 73-year-old female with a past medical history of hypertension maintained on hydrochlorothiazide and ramipril. She has a history of diabetes and is maintained on Insulin and Invokana. She is maintained on statin therapy for her
dyslipidemia. She presented to the hospital last evening with increasing weakness cough and anorexia. She also had associated confusion. When she presented to the hospital she was found to be in DKA with suspected underlying sepsis and was
admitted to the intensive care unit. She also appears to have an evolving non-ST elevation [place]. She appears to be in acute renal failure with a creatinine of 4 and we were consulted for this critically ill patient. She is now maintained on pressor
support and IV antibiotic. CAT scan image of the abdomen and pelvis had revealed possible right sided emphysematous pyelonephritis in the setting of a staghorn calculus. There was noted associated left renal atrophy. As per the patient she does
have a history of chronic kidney disease, but does not know her baseline and follows with a branch service associate.
Past Medical History
DM2
Essential hypertension
Hyperlipidemia
Chronic kidney disease
Bladder cancer
History of cholecystectomy and bladder tumor resection
Social History
Tobacco: Non-Smoker
Alcohol: None
Family History
no CKD
Allergies / Home Medications
Allergy/AdvReac Type Severity Reaction Status Date / Time
No Known Allergies Allergy Unverified 06/17/24 16:14
�Medication �Instructions �Recorded �Confirmed �Type
atorvastatin 40 mg tablet 40 mg PO DAILY High Cholesterol 06/17/24 History
canagliflozin 100 mg tablet 100 mg PO DAILY Diabetes 06/17/24 History
(Invokana)
hydrochlorothiazide 25 mg tablet 5 mg PO DAILY Fluid 06/17/24 History
Retention/Swelling
ramipril 5 mg capsule 5 mg PO DAILY Blood Pressure 06/17/24 History
Review of Systems
-
History Source: Patient
All other systems: Negative unless noted
Constitutional: Fatigue
Respiratory: No Symptoms
Cardiac: No Symptoms
Abdomen/GI: No Symptoms
: Incontinence and Other (right flank pain)
Musculoskeletal: Other (back pain)
Skin: No Symptoms
Neurological: Other (some mild confusion)
Physical Exam
Vital Signs
Vital Signs
Temp Pulse Resp BP Pulse Ox
97.9 F 93 21 105/63 94
06/18/24 07:00 06/18/24 07:30 06/18/24 07:30 06/18/24 07:15 06/18/24 07:30
Lab Results
06/18/24 06:10
WBC 24.6 10^3/uL (4.8-10.8) H 06/18/24 06:10
RBC 4.06 10^6/uL (4.20-5.40) L 06/18/24 06:10
Hgb 13.1 g/dL (12.0-16.0) 06/18/24 06:10
Hct 35.8 % (37.0-47.0) L 06/18/24 06:10
Plt Count 48 10^3/uL (130-400) L 06/18/24 06:10
eGFR 11.20 06/18/24 06:10
Phosphorus 3.2 mg/dl (2.5-4.5) 06/18/24 06:10
Albumin 2.8 g/dl (3.5-5.0) L 06/18/24 06:10
Physical Exam
General: AOx2, Nontoxic , NAD
HEENT: PERRL, EOMI, Anicteric, Conjunctivae Clear, Ear/Nose Intact, Hearing Normal, Oropharynx Clear/dry, Dentition Intact, Facial Symmetry, Neck Supple, Neck: Trachea Midline, No JVD and No Thyromegaly, no Bruits
Respiratory: Clear to auscultation bilaterally with normal lung exersion
Cardiac: S1/S2 and Regular Rate/Rhythm
Breast: Deferred by me
Abdomen: Soft, but slightly tender, Nondistended, Normal Bowel Sounds and No Hepatosplenomegaly
Rectal: Deferred by Provider
Genito-urinary: No Costovertebral Tenderness
Extremities: No Clubbing, No Cyanosis and No Edema
Skin: No Rash or open lesions
Neuro: Nonfocal/Grossly Intact, CN II-XII (Intact) and Strength (Musculoskeletal exam 5 out of 5 both upper and lower extremities)
Hematologic/Lymphatic: No Cervical Lymphadenopathy, No Submandibular Lymphadenopathy and No Supraclavicular Lymphadenopathy
Psych: Mood/afflect pleasant, Insight/judgement good and Appropriate
Vascular: plus 1 pedal and radial pulses
Data Reviewed
-
CT Scan: Report Reviewed by me (CT notes possible right-sided pyelonephritis with associated staghorn calculus and left renal atrophy)
Labs: Labs Reviewed by me (BMP CBC urinalysis)
Old Records: Requested (Request to see records for baseline creatinine)
Critical Care Time (in minutes): 40
Assessment/Plan
-
Impression:
Acute kidney injury
Chronic kidney disease with unknown baseline
acute metabolic encephalopathy/Hyperglycemia
Anion gap metabolic acidosis of 26
Sepsis with suspected underlying uroseptic source: GNB
Right sided kidney staghorn calculus with associated pyelonephritis
Left renal atrophy
History of hypertension
History of dyslipidemia
History of bladder cancer status post tumor resection
Diabetes
Non-ST elevation [place]
Influenza positive
Thrombocytopenia
Elevated CPK
Plan:
KRISTEN:
-Likely due to profound prerenal stimulus from volume depletion from HHNK and sepsis
-Concur with alkaline IV fluids in setting of profound metabolic acidosis
-Correction of hyperglycemia with insulin drip
-Place Seth catheter and actually assess urine output
-No acute HD requirement at this time
-Antibiotic therapy directed for possible underlying right emphysematous pyelonephritis (zosyn renallyl dosed)
-Support blood pressure to keep MAP 65 or greater with pressor support
-low threshold for seth, check bladder scan
-Trend CPK levels which were initially 4500
Total Time Spent with Patient (in minutes): 40
--- NOTE | 2024-06-18 08:05 | W.PN.HOSP.TC ---
Addendum entered and electronically signed by Terence Purvis DO 06/18/24 09:14:
Spoke with urology, plan for cystoscopy today.
Spoke with interventional radiology, currently high risk for percutaneous nephrostomy given use of aspirin and low platelet count.
Updated patient's son Faisal on the phone. All questions answered.
Addendum entered and electronically signed by Terence Purvis, 06/18/24 08:56:
Curbside consult to hematology, Dr. Farmer. She concurs with presumed diagnosis of DIC. Will check reticulocyte count, haptoglobin. Monitor closely. Low likelihood of TTP.
Original Note:
Today's Communication/Plan
-
Nephrology consult
IR consult
Cardiology consult
Continue IV fluids
Wean down pressors as able
Await cultures
Continue antibiotics
DIC panel
Assessment / Plan
Assessment / Plan
Gen-AAOx3, NAD, obese
HEENT-NC, AT, anicteric, clear oral mm
Neck-supple
CV-reg, no M, +S1/S2
Lungs-clear B/L
Abd-soft, NT, ND
Ext-no edema
Musculoskeletal-no cyanosis, clubbing
Skin-warm and dry
Neuro-grossly non-focal
Psych-calm, cooperative
Septic shock -possibly due to right sided emphysematous pyelonephritis. Staghorn calculus noted on CT. Continue vasopressors, blood pressure holding, Levophed drip is down to 1 mcg/min. Continue IV fluids. Continue broad-spectrum antibiotics.
Await cultures. Monitor in ICU. Vice President Compliance consulted. Lactic acidosis improving.
Staghorn calculus, right emphysematous pyelonephritis -this is the source of sepsis. CT scan noted. IR and urology consulted. Patient unaware of history of nephrolithiasis. Denies history of hematuria.
Acute metabolic encephalopathy -likely due to septic shock, KRISTEN, critical illness. CT head without acute disease. Mental status improving.
KRISTEN -likely due to septic shock, volume depletion. Repeat labs in the morning after IV fluids. Severe Metabolic acidosis due to DKA, shock. Consult nephrology. Creatinine improved somewhat to 4.0. Urine output minimal, 110 cc overnight.
Baseline unknown. Given lack of anemia doubt significant chronic kidney disease. CT does show moderate diffuse atrophy of the left kidney.
DM2 with DKA -continue IV insulin, IV fluids, NPO. Check hemoglobin A1c. Glucose 249 this morning. Still with significant anion gap metabolic acidosis, anion gap 17 this morning, bicarbonate 11. Suspect acidosis multifactorial including KRISTEN and
DKA. Add bicarbonate to IV fluids.
Monitor BMP. Etiology of DKA is likely septic shock. Surprisingly beta hydroxybutyrate was normal. She uses 70/30 insulin at home, 38 units twice daily. Consult diabetes HOME HEALTH OUTREACH COORDINATOR on Wednesday.
Acute influenza B infection -continue Tamiflu at renal doses.
Elevated LFTs -etiology unclear but differential diagnosis includes sepsis and shock. CT shows diffuse fatty infiltration of the liver with no evidence of a focal hepatic lesion. Prior cholecystectomy noted. No evidence of biliary ductal dilation.
Non-STEMI -EKG reviewed, shows sinus tachycardia with age-indeterminate anterior lateral and inferior ST changes. She denies cardiovascular symptoms. Continue aspirin. Cardiology consulted. Troponin trending down.
Thrombocytopenia -suspect acute and due to critical illness. Suspect possible DIC given mild coagulopathy. Recheck coagulation parameters, fibrinogen, D-dimer. Not anemic, doubt TTP.
Acute nontraumatic rhabdomyolysis -suspect due to sepsis, shock, limited mobility. Recheck CPK. Continue IV fluids.
Left adnexal mass -noted on CT, 4.3 cm. Homogeneous. Will need pelvic ultrasound when medically stable.
Essential hypertension -hold home medications for hypotension, shock.
Hyperlipidemia -on atorvastatin, hold for now given rhabdomyolysis.
History of bladder cancer -treated with tumor resection, intravesicular chemotherapy.
History of right hemicolectomy -done for spontaneous perforation of the colon according to family.
Obesity due to excess calories
Full code
Anticipated Discharge: > 48 hours
Subjective/Interval History
-
Date of Service: June 18, 2024
Patient seen and examined. Complaining of right hip pain. Denies chest pain, shortness of breath, cough, flank pain.
Objective Data
-
Labs:
Laboratory Results
06/17/24 06/17/24 06/17/24
19:44 20:59 23:00
WBC
Hgb
Hct
Plt Count
PT
INR
APTT
Sodium 137 139 137
Potassium 3.9 3.6 4.1
Chloride 106 107 106
Carbon Dioxide 10 L* 13 L* 15 L
BUN 66 H 64 H 68 H
Creatinine 4.3 H* 4.2 H* 4.2 H*
Glucose 250 H 190 H 206 H
Calcium 9.0 8.8 9.0
Total Bilirubin
AST
ALT
Alkaline Phosphatase
06/18/24 06/18/24 06/18/24
02:07 06:10 07:33
WBC 24.6 H
Hgb 13.1
Hct 35.8 L
Plt Count 48 L
PT Pending
INR Pending
APTT Pending
Sodium 138 136
Potassium 3.9 4.2
Chloride 107 108 H
Carbon Dioxide 11 L* 11 L*
BUN 67 H 68 H
Creatinine 3.7 H 4.0 H
Glucose 269 H 257 H
Calcium 8.7 8.8
Total Bilirubin 5.1 H
AST 440 H
ALT 312 H
Alkaline Phosphatase 153 H
06/18/24 06/18/24 06/18/24
10:00 14:00 18:00
WBC
Hgb
Hct
Plt Count
PT
INR
APTT
Sodium Pending Pending Pending
Potassium Pending Pending Pending
Chloride Pending Pending Pending
Carbon Dioxide Pending Pending Pending
BUN Pending Pending Pending
Creatinine Pending Pending Pending
Glucose Pending Pending Pending
Calcium Pending Pending Pending
Total Bilirubin
AST
ALT
Alkaline Phosphatase
06/18/24
22:00
WBC
Hgb
Hct
Plt Count
PT
INR
APTT
Sodium Pending
Potassium Pending
Chloride Pending
Carbon Dioxide Pending
BUN Pending
Creatinine Pending
Glucose Pending
Calcium Pending
Total Bilirubin
AST
ALT
Alkaline Phosphatase
Vital Signs:
Vital Signs
Temp Pulse Resp BP Pulse Ox
97.9 F 93 21 105/63 94
06/18/24 07:00 06/18/24 07:30 06/18/24 07:30 06/18/24 07:15 06/18/24 07:30
I&O
06/17/24 06/18/24 06/19/24
06:59 06:59 06:59
Intake Total 1664.5 / 1664.5
Output Total 110 / 110
Balance 1554.5 / 1554.5
Review of Systems
-
History Source: Patient
All other systems: Reviewed and negative
--- NOTE | 2024-06-18 08:08 | PHA.VAN.FU ---
Vancomycin Assessment / Plan
- Assessment
Renal Function: SCR Increasing
WBC's are: Trending Down
In the past 24 hrs, patient has been: Afebrile
Concomitant Antimicrobials: zosyn
- Assessment - Therapeutic Drug Monitoring
Random Level: 20.6
- Dosing Plan
Dosing by Level: Hold off on dosing today
- Monitoring Plan
Random Level: 9 in am
- Follow Up
Pharmacy will continue to follow.
Vancomycin Follow UP
- -
Patient Age: 73
Patient Sex: Female
Vancomycin Day #: 2
Indication: Bacteremia
Requesting Provider: Dr Purvis
Pertinent Antimicrobial Allergies:
no known allergies
Height / Weight:
Height 5 ft 6 in
Actual Weight 91.5 kg
Pertinent Past Medical History: DKA
- Vital Signs / Lab Results
Temp Pulse Resp BP Pulse Ox
97.9 F 93 21 105/63 94
06/18/24 07:00 06/18/24 07:30 06/18/24 07:30 06/18/24 07:15 06/18/24 07:30
Lab Results - Hematology
06/17/24 06/18/24
16:35 06:10
WBC 28.6 H 24.6 H
Band Neutrophils 16 H
Lab Results - Chemistry
06/17/24 06/17/24 06/17/24
16:35 17:32 19:44
BUN 71 H Cancelled 66 H
Creatinine 4.9 H* Cancelled 4.3 H*
Estimated Creat Clear 11 Cancelled 13
Albumin 4.1
06/17/24 06/17/24 06/17/24
19:45 20:59 23:00
BUN Cancelled 64 H 68 H
Creatinine Cancelled 4.2 H* 4.2 H*
Estimated Creat Clear Cancelled 13 13
Albumin
06/18/24 06/18/24
02:07 06:10
BUN 67 H 68 H
Creatinine 3.7 H 4.0 H
Estimated Creat Clear 15 14
Albumin 2.8 L
06/17/24 06/17/24 06/18/24
16:49 23:00 04:08
Lactic Acid 5.8 H* 3.5 H 3.2 H
Lab Results - Urine
06/17/24
16:51
Urine Nitrite (Reflex) Positive A
Leukocyte Esterase Rfl 2+ A
Microbiology Results
06/17/24 16:40 Influenza Types A & B (AKSHAT) - Final
Nasal Swab Influenza B Positive, NAAT
Therapeutic Drug Monitoring
Random Vancomycin 20.6 ug/ml 06/18/24 06:10
[2024-06-18 08:33] LABS: Glucose - Point of Care 289 mg/dl (70-99)
[2024-06-18] MEDS: SODIUM BICARBONATE 1160 MEQ IV ×2 (08:41)
[2024-06-18 08:58] LABS: INR 1.25; PT 15.5 Sec (11.4-14.6)
[2024-06-18 08:59] LABS: APTT 42.3 Sec (23.4-35.0); Fibrinogen 368 MG/DL (199-459)
[2024-06-18 08:59] LABS: % Basophils 0.1 % (0-2); % Immature Granulocytes 5.3 % (0-0.5); % Lymphocytes 8.1 % (20.5-51.1); % Monocytes 8.5 % (1.7-9.3); Absolute Immature Granulocytes 1.3 10^3/uL (0-0.05); Absolute Monocytes 2.1 10^3/uL (0.1-0.6); Absolute Neutrophils 19.1 10^3/uL (1.4-6.5); Nucleated Red Blood Cells % 0 %
[2024-06-18 09:08] LABS: D-Dimer 3.68 ug/mlFEU (0.00-0.50)
--- NOTE | 2024-06-18 09:22 | CON.INTV ---
Consultation
Consultation Request
Date/Time Consultation Requested: 06/17/2024 - 2022
Date/Time Consultation Performed: 06/18/2024857
Requesting Provider: Dr. Purvis
Performing Provider: Dr. Baker
Reason for Consultation: Shock/DKA
Medical History
-
Chief Complaint: Weakness, confusion + cough
History of Present Illness:
73-year-old female non-smoker with a past medical history of bladder cancer, DM type II, CKD and hypertension who presents with confusion, nausea, right-sided hip/back pain and weakness. She says she has been having right-sided flank pain for a few
months. In the ER she was afebrile to 97.3 �F, pulse rate 115, respiratory rate 20, BP 78/36 and saturating 94% on room air. Initial labs showed leukocytosis to 28.6 with 16% bands, Hb 15.3, platelets 60, serum bicarbonate level 10, creatinine
4.3, glucose 250, lactate 5.8, T. bili 6.2, CK 4572, troponin 7.94, urinalysis positive for nitrites and +2 leukocyte esterase with trace urine ketones. Beta-hydroxybutyrate was normal at 0.26 and SARS Cov 2 antigen was negative. She was found to
be flu be positive, and blood cultures collected were also positive with GNR. Initial CXR showed bibasilar linear atelectasis, CT head showed no acute intracranial abnormality, and CT chest, abdomen, pelvis showed right-sided staghorn calculus
within the right calyces and extending into the renal pelvis. There was a small foci of air within the right renal pelvis adjacent to the calculus suggestive of emphysematous pyelitis. She was given IVF with 3 L total (2 L NS 0.9% +1 L LR),
antibiotics with vancomycin/Zosyn, started on Levophed drip due to persistent hypotension and also started on insulin infusion. 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
management/recommendations.
When I saw the patient this morning, she was resting in bed, she was just removed off of Levophed at around 8 AM, and BP was 98/62. Heart rate 91. She says she feels much better. Still feels weak, denies cough, shortness of breath, chest pain,
fevers or chills. Still has right-sided flank/back pain. She denies MARCIAL, abdominal pain, nausea/vomiting.
PMHx: DM type II, hypertension, hyperlipidemia, CKD, history of bladder cancer
PSHx: Cholecystectomy, bladder tumor resection, right hemicolectomy
Past Medical History
Past Medical History: Other (Above as per HPI)
Past Surgical History: Other (Above as per HPI)
Social History
Tobacco: Non-smoker
Alcohol: None
Drug: None
Living: With Family
Family History
Family History: Reviewed & Not Pertinent
Allergies / Home Medications
Allergies
Allergy/AdvReac Type Severity Reaction Status Date / Time
No Known Allergies Allergy Unverified 06/17/24 16:14
Home Medications
�Medication �Instructions �Recorded �Confirmed �Last Taken �Type
atorvastatin 40 mg tablet 40 mg PO DAILY High Cholesterol 06/17/24 Unknown History
canagliflozin 100 mg tablet 100 mg PO DAILY Diabetes 06/17/24 Unknown History
(Invokana)
hydrochlorothiazide 25 mg tablet 5 mg PO DAILY Fluid 06/17/24 Unknown History
Retention/Swelling
ramipril 5 mg capsule 5 mg PO DAILY Blood Pressure 06/17/24 Unknown History
Review of Systems
-
History Source: Patient
All other systems: Negative unless noted
Vitals / Labs / Diagnostic Testing
Vital Signs
Temp Pulse Resp BP Pulse Ox
97.9 F 93 21 105/63 97
06/18/24 07:00 06/18/24 07:30 06/18/24 07:30 06/18/24 07:15 06/18/24 08:00
Lab Data
06/18/24 06:10
Laboratory Results
06/17/24 06/18/24
16:49 08:37
PT 14.8 H 15.5 H
INR 1.18 1.25
APTT 38.1 H 42.3 H
Microbiology
06/17/24 16:49 Blood/Venous Blood Culture - Preliminary
Positive culture in progress
06/17/24 16:49 Blood/Venous Gram Stain - Preliminary
06/17/24 16:50 Blood/Venous Blood Culture - Preliminary
Positive culture in progress
06/17/24 16:50 Blood/Venous Gram Stain - Preliminary
06/17/24 16:40 Nasal Swab Influenza Types A & B (AKSHAT) - Final
Influenza B Positive, NAAT
Diagnostic Testing:
Physical Exam
-
HEENT: Normocephalic and Anicteric
Cardiovascular: S1/S2 and Peripheral Edema (negative)
Respiratory: Wheeze (negative), Rales (Bibasilar), Rhonchi (negative) and Non-Labored Respirations
GI: Soft, Non Distended, Non Tender and Normal Bowel Sounds
Neurology: AO x 3 and Tremors (negative)
Skin: Warm and Dry
General: Respiratory Distress (negative), Comfortable, Chills (negative) and Sweats (negative)
Assessment
-
Assessment: 73-year-old female non-smoker with a past medical history of bladder cancer, DM type II, CKD and hypertension who presents with confusion, nausea, right-sided hip/back pain and weakness. She says she has been having right-sided flank
pain for a few months. In the ER she was afebrile to 97.3 �F, pulse rate 115, respiratory rate 20, BP 78/36 and saturating 94% on room air. Initial labs showed leukocytosis to 28.6 with 16% bands, Hb 15.3, platelets 60, serum bicarbonate level 10,
creatinine 4.3, glucose 250, lactate 5.8, T. bili 6.2, CK 4572, troponin 7.94, urinalysis positive for nitrites and +2 leukocyte esterase with trace urine ketones. Beta-hydroxybutyrate was normal at 0.26 and SARS Cov 2 antigen was negative. She
was found to be flu be positive, and blood cultures collected were also positive with GNR. Initial CXR showed bibasilar linear atelectasis, CT head showed no acute intracranial abnormality, and CT chest, abdomen, pelvis showed right-sided staghorn
calculus within the right calyces and extending into the renal pelvis. There was a small foci of air within the right renal pelvis adjacent to the calculus suggestive of emphysematous pyelitis. She was given IVF with 3 L total (2 L NS 0.9% +1 L
LR), antibiotics with vancomycin/Zosyn, started on Levophed drip due to persistent hypotension and also started on insulin infusion. 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
management/recommendations.
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
Impression:
#Septic shock due to pyelonephritis
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
#DM type II complicated by hyperglycemia
#KRISTEN likely multifactorial from sepsis with acute organ dysfunction, ischemic ATN in setting of shock, and post-obstructive azotemia in setting of right staghorn calculi
#Metabolic acidosis with increased anion gap due to lactic acidosis + KRISTEN; patient unlikely in DKA given beta-hydroxybutyrate is WNL and only trace urine ketones
#Elevated troponin likely due to demand ischemia with type II GA
#Transaminitis likely due to ischemia
#Rhabdomyolysis
#Thrombocytopenia likely due to sepsis
#Influenza B infection
#Obesity with fatty liver disease
Plan:
- Continue with broad-spectrum antibiotics as per ID
- Currently on Zosyn s/p IV vanco x1 dose
- Proteus species is growing from blood cultures; follow-up sensitivities
- Follow up urine Cx (collected 06/17/2024)
- Vasopressors have been weaned off as of this morning
- Maintain MAP>65
- Maintain SpO2 >90-94% with supplemental O2 if needed
- prn nebulized bronchodilators - patient not currently bronchospastic
- Trend lactate until <2mmol/L
- Continue with insulin gtt to slowly normalize BG
- Avoid hypoglycemia with goal BG >100 and <180
- Once BG <250, start D5-1/2NS with 20 mEq KCl
- q1hr FS while on insulin gtt
- q4hr BMP with Mg and PO4
- Replete electrolytes with K>4, Mg>2
- Trend blood gas to monitor pH and pCO2; trend serum HCO3; if pH>7.3 then no need for bicarb supplementation
- Would bridge her off insulin gtt once her BG is <200 for at least 4 consecutive hrs and ideally serum HCO3 18 or greater and AG<12 x2; now given that she also has lactic acidosis and KRISTEN, her acidosis and AG may not normalize, so this needs to be
taken into account
- Patient says she takes Novolog mix 70/30 at home, 38 units BID --> take this into account when bridging her off insulin gtt
- Even after insulin gtt is weaned off, continue IVF until CPK is <500
- Urology consulted � urgent urological intervention needed to attempt to decompress/drain right renal collecting system � patient being brought to OR today for cystoscopy and JJ stent placement
- keep pt NPO
- No need to continue trending troponin given it peaked at 7.94 on 06/17/2024
- Trend LFTs
- Monitor platelet count with serial CBC, and transfuse platelets to keep >50k; keep Hb>7g/dL
- Continue Tamiflu x 5 days
- Renally dose all meds/ABx
- Trend UOP + sCr
- Incentive spirometer encouraged
- DVT ppx: HSQ
Critical care statement: A total of 44 minutes of critical care time was provided for this patient today. This includes management of unstable vital signs, evaluation of the patient at bedside, reviewing the patient's pertinent medical records
including radiographs, microbiology, laboratory evaluations, and discussion with primary team, consultants, pharmacy, nutrition, physical therapy, case management, charge nurse, critical care nursing, and respiratory therapy.
Data:
CT chest/abdomen/pelvis without contrast 06/17/2024:
Dependent atelectasis in the visualized lower lungs. There are also linear densities within both lower lungs, which is most likely linear atelectasis and/or scarring.
No evidence of consolidation to suggest pneumonia. There is no evidence for significant pleural or pericardial effusion.
Mild bilateral apical pleuroparenchymal scarring.
Coronary artery calcifications are present. Please correlate with symptoms of and risk factors for coronary artery disease, with further workup as clinically appropriate.
There is a staghorn calculus within the right-sided calyces and renal pelvis. Small foci of air are present within the renal pelvis adjacent to this calculus. This finding would be most suggestive of emphysematous pyelitis.
Moderate diffuse atrophy of the left kidney when compared to the right.
Diffuse fatty infiltration of the liver.
Splenic size is in the upper range of normal, maximum dimension of 12.9 cm.
4.3 cm ovoid homogeneous cystic mass in the left adnexa, likely arising from the left ovary. In a 73-year-old with no previous imaging examination, follow-up pelvic ultrasound is advised.
No evidence for bowel obstruction or free intraperitoneal air. Findings suggesting previous right hemicolectomy.
[2024-06-18 09:31] LABS: Glucose - Point of Care 250 mg/dl (70-99)
--- NOTE | 2024-06-18 09:32 | PTCARENOTE ---
recd pt on insulin gtt, see hourly glucose and documentation. seen by Ezequiel Lowry, Bibi. IR phoned for report, ready for patient, packaged and taken to elevator, received call not to bring pt, will be going to OR instead. Back to room,
pt updated, c/o fatigue, resting when undisturbed. Levophed titrated to off. Purewick maintained, abd soft. Labs as noted, more to be due at 10 am. Desenex order sent to pharmacy. call witt in reach. Reviewed aspirin and heparin with
hospitalist, order remains to give this am.
[2024-06-18 09:52] LABS: Reticulocyte Count 2.8 % (0.4-2.8)
--- NOTE | 2024-06-18 10:18 | W.PN.CD ---
Addendum entered and electronically signed by Vasquez Nieves MD 06/18/24 10:54:
Note that her admit EKG shows evidence of prior IMI and anterior LA and so wall motion on echo could represent old events.
Original Note:
Today's Communication / Plan
-
Consult dictated
Cardiac Plans/Suggestions
- Echo in AM
- EKG in AM
- ASA 81 mg a day
- Lipid profile check but may be unreliable given acute medical illness
- Watch for heart failure, ischemia, arrhythmias
- Depending on course we may offer outpatient stress testing vs just risk factor modification vs other
Impression / Plan
-
Abnormal troponin, peak 7.9 which was admit troponin
- Etiology uncertain but given the magnitude of the troponin a type II LA from sepsis seems likely vs non-ischemic myocardial injury from sepsis is the other possibility
- Given her risk factors she may well have underlying CAD
- No clinical syndrome of ACS so will need to see if echo has regional wall motion changes of LA or if serial EKG show changes of LA, I do not think we need to pursue MRI as I think an elective stress test and risk factor modification will be
appropriate care no matter what the etiology of the troponin elevation
Sepsis from Gram negative bacilli and influenza B
- CT suggests right sided pyelo
CKD likely with KRISTEN
- Admit Cr 4.9
DM, type II
HTN
Mixed hyperlipidemia
Hx bladder cancer
Physical Exam
Vital Signs/Labs
Vital Signs
Temp Pulse Resp BP Pulse Ox
97.9 F 93 21 105/63 97
06/18/24 07:00 06/18/24 07:30 06/18/24 07:30 06/18/24 07:15 06/18/24 08:00
06/17/24 06/18/24 06/19/24
06:59 06:59 06:59
Actual Weight 91.5 kg
06/18/24 06:10
PT 15.5 Sec (11.4-14.6) H 06/18/24 08:37
INR 1.25 06/18/24 08:37
APTT 42.3 Sec (23.4-35.0) H 06/18/24 08:37
Magnesium 1.7 mg/dl (1.6-2.3) 06/18/24 06:10
LAB Results
06/17/24 06/17/24 06/18/24
16:50 23:00 06:10
Troponin I 7.940 H* 6.360 H* 5.500 H*
Data Reviewed
-
Date of Service: June 18, 2024
[2024-06-18 10:26] LABS: Glycohemoglobin (HgbA1c) 8.4 % (4.0-5.6)
[2024-06-18 10:39] LABS: Glucose - Point of Care 222 mg/dl (70-99)
[2024-06-18 10:43] LABS: Blood Urea Nitrogen 67 mg/dl (7-17); Calcium 8.8 mg/dl (8.4-10.2); Carbon Dioxide 13 mmol/L (22-30); Chloride 108 mmol/L (98-107); Estimated Creatinine Clearance 14 ml/min; Glucose 214 mg/dl (70-99); Potassium 4.1 mmol/L (3.5-5.1); Sodium 137 mmol/L (135-145); eGFR 11.55
[2024-06-18] MEDS: DESENEX/MITRAZOL/ZEASORB TOPICAL (11:00)
[2024-06-18 11:30] LABS: Glucose - Point of Care 192 mg/dl (70-99)
--- NOTE | 2024-06-18 11:43 | W.PN.URO.CBU ---
Today's Communication / Plan
-
Continue fluid resuscitation and IV antibiotics
Or today for attempt at right JJ stent placement
Assessment / Plan
-
Probable urosepsis
Right staghorn stone
Gas in right renal pelvis
KRISTEN
Diagnosis
-
Date of Service: June 18, 2024
-
Patient Diagnosis:
Probable urosepsis/complicated UTI
Right staghorn stone with gas in renal pelvis. No evidence of gas in renal parenchyma
KRISTEN
---
Patient w/o prior history
History of Type 2 DM
---
Discussed management with Hospitalists and IRAD earlier today
Best drain management option would be a right nephrostomy tube, but Dr. Brown has appropriate concerns regarding the patient's use of aspirin and her relative thrombocytopenia given access might require multiple needle passes
Fortunately, patient is responding favorably to fluid resuscitation
I will proceed with retrograde JJ stent placement and we will observe the patient the next 24 hours and then re-address the role for percutaneous nephrostomy tube
---
Patient was advised regarding the need for urgent intervention to attempt to decompress/drain the right renal collecting system, including risks of surgery and anesthesia, most notably the potential for worsening symptoms of sepsis and gross
hematuria along with potential right ureteral injury
She has provided written and verbal consent
Subjective
-
No right flank pain
No new voiding dysfunction
Objective
-
Vital Signs
Temp Pulse Resp BP Pulse Ox
98.0 F 93 21 105/63 97
06/18/24 11:00 06/18/24 07:30 06/18/24 07:30 06/18/24 07:15 06/18/24 08:00
Intake and Output
06/17/24 06/18/24 06/19/24
06:59 06:59 06:59
Intake Total 1664.5 / 1821.3 568.8 / 568.8
Output Total 110 / 110 550 / 550
Balance 1554.5 / 1711.3 18.8 / 18.8
Intake:
Oral fluids 60 / 60
IV fluids (Total) 1554.5 / 1711.3 518.8 / 518.8
D5/0.45%NSS with KCL 20 MEQ 20 1350 / 1500 300 / 300
meq In 1,000 ml @ 150 mls/hr IV
.[id number] ROSARIO Rx#:[id number]
Norepinephrine 174.5 / 178.3 3.8 / 3.8
Sterile Water For Injection 200 / 200
1000 ml 1,000 ml @ 100 mls/hr
IV .[id number] ROSARIO with Sodium
Bicarbonate 150 Meq with KCl 20
Meq Rx#:[id number]
insulin 30 / 33 15 / 15
IV piggybacks 50 / 50 50 / 50
Output:
Urine, Voided 110 / 110 550 / 550
Other:
Number of approximated SMALL 1
amounts of urine
Number of approximated LARGE 1 1
amounts of urine
Laboratory Results
CT scan images personally [id number]/24 06:10
Review of Systems
-
Constitutional: Fatigue
Cardiac: No Symptoms
Abdomen/GI: No Symptoms
: No Symptoms
Neurological: No Symptoms
Physical Exam
-
General - well nourished, no acute distress
Abdomen - soft, non-tender, no CVAT
Skin - warm & dry with no rash
Neuro - AOx3, no motor deficits
Counseling
-
Discussed plans for urgent surgical intervention with Hospitalist
[2024-06-18 12:06] LABS: HDL Cholesterol 34 mg/dl; LDL Cholesterol, Calculated -5 mg/dl; Total Cholesterol 85 mg/dl (50-199); Triglyceride 281 mg/dl (10-149); Very Low Density Lipoprotein 56 mg/dl (0-30)
--- NOTE | 2024-06-18 12:07 | PTCARENOTE ---
no change in assessment. c/o 'tired' resting unless disturbed. purewick remains, pad changed under pt. awaiting call to OR.
[2024-06-18 12:42] LABS: Glucose - Point of Care 196 mg/dl (70-99)
[2024-06-18] MEDS: NOVOLIN R INSULIN INFUSION 100 IV (13:41)
[2024-06-18 13:44] LABS: Glucose - Point of Care 192 mg/dl (70-99)
[2024-06-18 14:10] LABS: Venous Blood Gas B.E. -7.2 mmol/L (-4 to +4); Venous Blood Gas HCO3 17.9 mmol/L (22-27); Venous Blood Gas O2 Sat % 96.9 %; Venous Blood Gas pCO2 34 mmHg (35-48); Venous Blood Gas pH 7.33 (7.32-7.43); Venous Blood Gas pO2 74 mmHg (30-50)
--- NOTE | 2024-06-18 14:30 | CM ---
Patient seen at bedside with son and also present. Patient son stated that patient and just moved from [facility] to a one floor condo with no steps to enter. 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
recently patient has been falling and in trying to help with caring for her. Patient has no DME at home, has walker and cane. Patient has no glucometer and stated that she has not had any VN supports. Patient has not seen the PCP
they are changing to; Dr. Kendrick from [facility]. Patient uses the [facility] on [facility] in [place]. Patient would benefit from pt/ot assessment to determine level of care needs. CM will continue to follow for discharge planning needs.
Plan; TBD; pending assessments for therapy and medical treatment plan
[2024-06-18 14:34] LABS: Blood Urea Nitrogen 68 mg/dl (7-17); Calcium 8.8 mg/dl (8.4-10.2); Carbon Dioxide 17 mmol/L (22-30); Chloride 106 mmol/L (98-107); Estimated Creatinine Clearance 15 ml/min; Glucose 177 mg/dl (70-99); Potassium 4.2 mmol/L (3.5-5.1); Sodium 139 mmol/L (135-145); eGFR 11.91
[2024-06-18 14:42] LABS: Glucose - Point of Care 184 mg/dl (70-99)
--- NOTE | 2024-06-18 14:59 | CON.ID ---
Consultation
-
Date/Time Consultation Requested: 06/18/2024 1114
Date/Time Consultation Performed: 06/18/2024 1440
Requesting Provider: Dr. Purvis
Performing Provider: Dr. Morales
Reason for Consultation: Complicated urinary tract infection
Chief Complaint / Past History
History of Present Illness
Joanne Velez is a 73-year-old female being evaluated the request of Dr. Purvis in regards to suspected complicated urinary tract infection. History is obtained from chart review, along with patient interview.
The patient reports that she was in her usual state of health until several days ago when she began to feel 'sluggish'. This persisted over the next several days, and yesterday a.m. she reports that she fell while attempting to come out of the
bathroom. Her was not able to help her get up and her son came over, and at that point in time it was decided that she should come to the emergency room. She notes prior to coming in that she developed some right hip and flank discomfort
over the past several days, but denies any dysuria. Additionally, she denies any cough or congestion. There are no sick contacts.
In the emergency room, she was noted to have a marked leukocytosis. CT imaging has revealed a right staghorn calculus, along with air in the right renal collecting system. Since admission, blood cultures have been shown to be positive for Proteus
species. Infectious Diseases is asked to comment upon further antimicrobial management.
At this time she denies any headache. She denies any chest pain or shortness of breath. She denies any cough or sputum production. She denies any hemoptysis. She denies any dysuria or hematuria.
Past History
Additional Past Medical History:
DM type II
HTN
Dyslipidemia
CKD
Hx bladder CA
Additional Past Surgical History:
Cholecystectomy
Allergy History:
No Known Allergies Allergy (Unverified 06/17/24 16:14)
Current Antibiotics:
Tamiflu
Zosyn 2.25 g IV every 8 hours
Social History
Tobacco: Non-Smoker
Alcohol: None
Drug: None
Personal:
Living: With Family
Employment: Retired
Family History
Family History: Not Pertinent
Review of Systems
Vital Signs
Temp Pulse Resp BP Pulse Ox
98.0 F 91 24 95/63 94
06/18/24 11:00 06/18/24 14:00 06/18/24 14:00 06/18/24 14:00 06/18/24 14:00
Physical Exam
Physical Exam
Constitutional: No Acute Distress, Well Developed, Comfortable and Non-toxic
Head: Normocephalic
Eyes: Pupils Equal, Pupils Round, No Conjunctival Hemorrhage and Sclera Anicteric
Oral: No Thrush and No Ulcers
Cardiovascular: Regular Rate and S1/S2; Negative S3/S4 or Murmur
Pulmonary: Clear; Negative Wheezes, Rales or Rhonchi
Gastrointestinal: Soft, Non Tender and Non Distended
Genito-Urinary: CVA Tenderness (right)
Extremities: Negative Edema, Cyanosis or Erythema
Skin: Warm and Dry; Negative Rash or Jaundice
Neurological: Awake, Alert and AO x 3
Psychological: Calm
.
Lab / Diagnostic Study Results
06/18/24 06:10
Abs Immat Gran (auto) 1.3 10^3/uL (0-0.05) H 06/18/24 06:10
Absolute Neuts (auto) 19.1 10^3/uL (1.4-6.5) H 06/18/24 06:10
Absolute Lymphs (auto) 2.0 10^3/uL (1.2-3.4) 06/18/24 06:10
Absolute Monos (auto) 2.1 10^3/uL (0.1-0.6) H 06/18/24 06:10
Absolute Basos (auto) 0.0 10^3/uL (0-0.2) 06/18/24 06:10
Total Counted 100 06/17/24 16:35
Immature Gran % 5.3 % (0-0.5) H 06/18/24 06:10
Neutrophils % 78.0 % (42.2-75.2) H 06/18/24 06:10
Lymphocytes % 8.1 % (20.5-51.1) L 06/18/24 06:10
Monocytes % 8.5 % (1.7-9.3) 06/18/24 06:10
Eosinophils % 0.0 % (0-6) 06/18/24 06:10
Basophils % 0.1 % (0-2) 06/18/24 06:10
Abs Neuts (Manual) 18.3 10^3/uL (1.4-6.5) H 06/17/24 16:35
Segmented Neutrophils 48 % (42-75) 06/17/24 16:35
Band Neutrophils 16 % (0-3) H 06/17/24 16:35
Lymphocytes (Manual) 8 % (20-51) L 06/17/24 16:35
Eosinophils (Manual) 2 % (0-6) 06/17/24 16:35
PT 15.5 Sec (11.4-14.6) H 06/18/24 08:37
INR 1.25 06/18/24 08:37
Lactic Acid 3.2 mmol/L (0.7-2.0) H 06/18/24 04:08
Microbiology Results
Micro:
06/17/24 16:50 Blood Culture - Preliminary
Blood/Venous Proteus species
Gram Stain - Preliminary
06/17/24 16:49 Blood Culture - Preliminary
Blood/Venous Positive culture in progress
Gram Stain - Preliminary
06/17/24 16:51 Urine Culture - Pending
Urine
06/17/24 16:40 Influenza Types A & B (AKSHAT) - Final
Nasal Swab Influenza B Positive, NAAT
Imaging:
06/17/2024 CT chest/abdomen/pelvis: There is a staghorn calculus within the right calyces, and extending into the right renal pelvis. There are small foci of air within the right renal pelvis adjacent to the calculus. No areas seen within the renal
parenchyma or findings to suggest emphysematous pyelonephritis. There is moderate diffuse atrophy of the left kidney, and no evidence for air within the left collecting system. No air identified within the bladder. Patient is status post
cholecystectomy. No evidence for biliary ductal dilatation. Please see full dictation for additional detail. Film personally viewed.
Assessment / Plan
Right pyelonephritis
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
Marked leukocytosis
Proteus bacteremia
Influenza B positive; Patient asymptomatic
Right staghorn calculi
KRISTEN on CKD
DM type II; uncontrolled. A1c = 8.4
Lactic acidosis
Transaminitis
Elevated troponin
Rhabdomyolysis
HTN
Dyslipidemia
Hx bladder CA
Recommendations:
Patient tentatively for OR today for stent placement.
Continue with Zosyn. Increase to 2.25 g IV every 6 hours.
Although asymptomatic, continue with Tamiflu given recovery of influenza B
Repeat blood cultures tomorrow to assess clearance.
Follow white count temperature curve.
Await sensitivity data of currently recovered bacterial isolates to guide further antimicrobial selection and potential de-escalation.
Continue with supportive measures.
[2024-06-18] MEDS: HEPARIN SC (15:15)
--- NOTE | 2024-06-18 15:33 | PTCARENOTE ---
noted hip pain, while obtaining order for PRN pain med, OR staff here to collect patient. handoff included need for pain med/eval and glucose monitoring. insulin gtt at 2 units/hr, family bedside, aware of plans. Purewick removed for transport.
IV fluids changed per MD order and abx given as ordered.
--- NOTE | 2024-06-18 16:12 | W.IMMPOSTOP ---
Surgical Immed Post Op Note
-
Primary Surgeon: Olivia
Assisting Surgeon: None
Pre-op Diagnosis: Urosepsis, right staghorn calculus, emphysematous pyelitis
Post-op Diagnosis: Same
Procedure Performed: Cystoscopy with placement of right JJ stent
Anesthesia Type: GET
Specimen / Cultures: Preop blood and urine cultures
Estimated Blood Loss: None
Complications: None
[2024-06-18 16:54] LABS: Glucose - Point of Care 109 mg/dl (70-99)
--- NOTE | 2024-06-18 17:11 | PTCARENOTE ---
returned direct back from OR, VS noted, awakens easily, changed from simple mask to room air, tolerating. turned, positioned, seth patent and draining pink tinge bloody urine with clear clumpy white/herrera sediment. see VS.
[2024-06-18 17:56] LABS: Glucose - Point of Care 231 mg/dl (70-99)
[2024-06-18 17:58] LABS: Venous Blood Gas B.E. -8.4 mmol/L (-4 to +4); Venous Blood Gas HCO3 17.9 mmol/L (22-27); Venous Blood Gas O2 Sat % 93.6 %; Venous Blood Gas pCO2 39 mmHg (35-48); Venous Blood Gas pH 7.27 (7.32-7.43); Venous Blood Gas pO2 64 mmHg (30-50)
[2024-06-18 18:11] LABS: Lactic Acid 2.1 mmol/L (0.7-2.0)
[2024-06-18 18:17] LABS: Hematocrit 33.6 % (37.0-47.0); Hemoglobin 12.2 g/dL (12.0-16.0); Mean Corp Hgb Conc. 36.3 g/dL (33.0-37.0); Mean Corpuscular Volume 85.5 fL (81.0-99.0); Mean Platelet Volume 11.9 fL (7.4-10.4); Platelet Count 47 10^3/uL (130-400); Red Blood Cell Count 3.93 10^6/uL (4.20-5.40); Red Cell Dist. Width 14.6 % (11.5-14.5); White Blood Cell Count 18.6 10^3/uL (4.8-10.8)
[2024-06-18 18:20] LABS: Blood Urea Nitrogen 67 mg/dl (7-17); Calcium 8.6 mg/dl (8.4-10.2); Carbon Dioxide 19 mmol/L (22-30); Chloride 104 mmol/L (98-107); Estimated Creatinine Clearance 15 ml/min; Glucose 231 mg/dl (70-99); Magnesium 1.6 mg/dl (1.6-2.3); Potassium 4.1 mmol/L (3.5-5.1); Sodium 137 mmol/L (135-145)
[2024-06-18 18:30] LABS: Phosphorus 4.1 mg/dl (2.5-4.5)
[2024-06-18 19:01] LABS: Glucose - Point of Care 239 mg/dl (70-99)
[2024-06-18] MEDS: MAGNESIUM SULFATE 100 IV (19:10)
[2024-06-18] MEDS: LIDOCAINE 4% PATCH 1 PATCH TOPICAL (19:11)
[2024-06-18] MEDS: DILAUDID 0.5 MG IV (19:11)
[2024-06-18 20:10] LABS: Glucose - Point of Care 254 mg/dl (70-99)
--- NOTE | 2024-06-18 20:34 | PTCARENOTE ---
Assumed care of pt approx. 1900.
Remains on insulin gtt. DKA protocol.
Off of norepi during dayshift.
Recovering well post anesthesia, normothermic.
Due to chronic hip pain management, new orders placed.
producing urine, 70-150 ml/hr.
All questions answered, plan of care explained at length to patient.
--- NOTE | 2024-06-18 21:22 | PTCARENOTE ---
Addendum entered by Pietro Gomes RN 06/18/24 23:17:
POC GLU resulting in less than 250. Latest POC 240.
Fluids changed to D5/0.45/20k
Original Note:
POC GLU cont. to rise, latest POC 282.
Fluids changed to 0.9/20meq.
[2024-06-18 21:25] LABS: Glucose - Point of Care 282 mg/dl (70-99)
[2024-06-18] MEDS: DESENEX/MITRAZOL/ZEASORB 1 APPLIC TOPICAL (21:30)
[2024-06-18] MEDS: NSS with KCL 20 MEQ 1000 IV (21:31)
[2024-06-18 22:14] LABS: Glucose - Point of Care 272 mg/dl (70-99)
[2024-06-18 22:28] LABS: Lactic Acid 2.2 mmol/L (0.7-2.0)
[2024-06-18 22:37] LABS: Blood Urea Nitrogen 66 mg/dl (7-17); Calcium 8.3 mg/dl (8.4-10.2); Carbon Dioxide 19 mmol/L (22-30); Chloride 106 mmol/L (98-107); Creatine Phosphokinase 544 U/L (30-135); Estimated Creatinine Clearance 16 ml/min; Glucose 268 mg/dl (70-99); Magnesium 1.9 mg/dl (1.6-2.3); Sodium 136 mmol/L (135-145); eGFR 13.15
[2024-06-18 23:09] LABS: Glucose - Point of Care 240 mg/dl (70-99)
[2024-06-19] VITALS (24 sets, daily range): BP systolic 96–127; BP diastolic 58–74; BMI 33.0
[2024-06-19] MEDS: D5/0.45%NSS with KCL 20 MEQ 1000 IV ×2 (00:03→07:34)
[2024-06-19 00:18] LABS: Glucose - Point of Care 229 mg/dl (70-99)
[2024-06-19] MEDS: HEPARIN 5000 UNITS SC ×2 (00:56→07:35)
[2024-06-19 01:11] LABS: Glucose - Point of Care 254 mg/dl (70-99)
[2024-06-19 02:18] LABS: Venous Blood Gas B.E. -6.5 mmol/L (-4 to +4); Venous Blood Gas HCO3 19.7 mmol/L (22-27); Venous Blood Gas O2 Sat % 85.4 %; Venous Blood Gas pCO2 41 mmHg (35-48); Venous Blood Gas pH 7.29 (7.32-7.43); Venous Blood Gas pO2 55 mmHg (30-50)
[2024-06-19 02:18] LABS: Glucose - Point of Care 246 mg/dl (70-99)
[2024-06-19 02:32] LABS: Venous Blood Gas O2 Therapy 21%
[2024-06-19 02:38] LABS: Lactic Acid 2.3 mmol/L (0.7-2.0)
[2024-06-19 02:40] LABS: Blood Urea Nitrogen 67 mg/dl (7-17); Calcium 8.6 mg/dl (8.4-10.2); Carbon Dioxide 18 mmol/L (22-30); Chloride 108 mmol/L (98-107); Estimated Creatinine Clearance 16 ml/min; Glucose 231 mg/dl (70-99); Magnesium 1.9 mg/dl (1.6-2.3); Phosphorus 3.8 mg/dl (2.5-4.5); Potassium 3.8 mmol/L (3.5-5.1); Sodium 139 mmol/L (135-145); eGFR 13.15
[2024-06-19 03:13] LABS: Glucose - Point of Care 234 mg/dl (70-99)
--- NOTE | 2024-06-19 03:52 | PTCARENOTE ---
Pt. complains of no R flank pain since x1 dilaudid dose + lido patch.
Latest anion gap 13. Lactic is starting to trend back up slightly.
BG trending down, ICU BETHANY aware, will make fluid adjustments based on AM labs.
Assessment remains largely unchanged from prior.
[2024-06-19 04:14] LABS: Glucose - Point of Care 226 mg/dl (70-99)
[2024-06-19] MEDS: DILAUDID 0.5 MG IV ×2 (04:14→13:09)
[2024-06-19] MEDS: ZOSYN 50 IV ×4 (04:14→21:58)
[2024-06-19 05:19] LABS: Glucose - Point of Care 236 mg/dl (70-99)
[2024-06-19 05:27] LABS: Lactic Acid 1.9 mmol/L (0.7-2.0)
[2024-06-19 05:31] LABS: Hematocrit 32.1 % (37.0-47.0); Hemoglobin 11.6 g/dL (12.0-16.0); Mean Corp Hgb Conc. 36.1 g/dL (33.0-37.0); Mean Corpuscular Hgb 32.1 pg (27.0-31.0); Mean Corpuscular Volume 88.9 fL (81.0-99.0); Mean Platelet Volume 12.5 fL (7.4-10.4); Platelet Count 38 10^3/uL (130-400); Red Blood Cell Count 3.61 10^6/uL (4.20-5.40); Red Cell Dist. Width 14.6 % (11.5-14.5); White Blood Cell Count 17.4 10^3/uL (4.8-10.8)
[2024-06-19 05:46] LABS: ALT (SGPT) 217 U/L (0-35); AST (SGOT) 184 U/L (14-36); Albumin 2.6 g/dl (3.5-5.0); Alkaline Phosphatase 131 U/L (38-126); Blood Urea Nitrogen 66 mg/dl (7-17); Calcium 8.7 mg/dl (8.4-10.2); Carbon Dioxide 18 mmol/L (22-30); Chloride 107 mmol/L (98-107); Creatine Phosphokinase 348 U/L (30-135); Estimated Creatinine Clearance 17 ml/min; Glucose 219 mg/dl (70-99); Magnesium 1.9 mg/dl (1.6-2.3); Phosphorus 3.7 mg/dl (2.5-4.5); Potassium 3.8 mmol/L (3.5-5.1); Sodium 139 mmol/L (135-145); Total Bilirubin 3.2 mg/dl (0.2-1.3); Total Protein 4.6 g/dl (6.3-8.2); eGFR 13.61
[2024-06-19] MEDS: MAGNESIUM SULFATE 102 GRAMS IV (06:14)
[2024-06-19] MEDS: KCL 160 MEQ IV (06:17)
[2024-06-19 06:18] LABS: Glucose - Point of Care 213 mg/dl (70-99)
--- NOTE | 2024-06-19 06:22 | PTCARENOTE ---
AM labs resulted, platelets 38, ICU BETHANY notified, CBC ordered for noon.
Serum lactic cleared.
Lytes replt, see mar for details.
Anion gap 14.
[2024-06-19 06:24] LABS: % Basophils 0.5 % (0-2); % Eosinophils 0.1 % (0-6); % Immature Granulocytes 0.6 % (0-0.5); % Lymphocytes 8.3 % (20.5-51.1); % Monocytes 7.4 % (1.7-9.3); % Neutrophils 83.1 % (42.2-75.2); Absolute Basophils 0.1 10^3/uL (0-0.2); Absolute Immature Granulocytes 0.1 10^3/uL (0-0.05); Absolute Lymphocytes 1.5 10^3/uL (1.2-3.4); Absolute Monocytes 1.3 10^3/uL (0.1-0.6); Absolute Neutrophils 14.5 10^3/uL (1.4-6.5); Nucleated Red Blood Cells % 0 %
[2024-06-19 07:14] LABS: Glucose - Point of Care 224 mg/dl (70-99)
--- NOTE | 2024-06-19 07:25 | PN.DE.MGMTRT ---
Insulin Management
- -
06/19/2024: Diabetes Management Consult
73 year old female with PMH: Bladder CA, CKD, HTN, HLD and T2DM, who presented from home with confusion, nausea, right-sided hip/back pain and weakness due to septic shock in setting of Pyelonephritis. Pt was noted for DKA--> insulin drip. A1C
8.4%, Cr 3.4, eGFR 13.61.
Pt awake, A/Ox3, sitting up in chair, pleasant, offers no complaints and able to discuss diabetes management.
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
GAP is still open per recent BMP and pt remains on insulin drip, glucose range 213 to 254, requiring 3-4 units of insulin/hr.
Will cont insulin infusion, plan to repeat BMP @ noon. Will reassess then for readiness to transition to SQ insulin, ideally when GAP is closed x2 BMPs.
Discussed with ICU team and Nurse at bedside.
Will return to provide glucose monitor instructions this afternoon.
Diabetes History
- -
Type of Diabetes: 2 requiring insulin
Pre-Admission Diabetes Regimen
06/18/24 06/18/24 06/18/24
10:07 13:59 17:46
Creatinine 3.9 H 3.8 H 3.7 H
06/18/24 06/19/24 06/19/24
22:01 02:03 04:57
Creatinine 3.5 H 3.5 H 3.4 H
Lab Results
Hemoglobin A1c 8.4 % (4.0-5.6) H 06/18/24 06:10
Insulin Pump Settings
IP Diabetes Regimen
06/18/24 06/18/24 06/18/24
07:19 08:22 09:20
Glucose
POC Glucose 249 H 289 H 250 H
06/18/24 06/18/24 06/18/24
10:07 10:28 11:19
Glucose 214 H
POC Glucose 222 H 192 H
06/18/24 06/18/24 06/18/24
12:30 13:32 13:59
Glucose 177 H
POC Glucose 196 H 192 H
06/18/24 06/18/24 06/18/24
14:31 16:42 17:45
Glucose
POC Glucose 184 H 109 H 231 H
06/18/24 06/18/24 06/18/24
17:46 18:50 19:58
Glucose 231 H
POC Glucose 239 H 254 H
06/18/24 06/18/24 06/18/24
21:13 22:01 22:02
Glucose 268 H
POC Glucose 282 H 272 H
06/18/24 06/19/24 06/19/24
22:59 00:07 01:00
Glucose
POC Glucose 240 H 229 H 254 H
06/19/24 06/19/24 06/19/24
02:03 02:07 03:02
Glucose 231 H
POC Glucose 246 H 234 H
06/19/24 06/19/24 06/19/24
04:01 04:57 05:04
Glucose 219 H
POC Glucose 226 H 236 H
06/19/24 06/19/24
06:05 07:02
Glucose
POC Glucose 213 H 224 H
Meal type: Breakfast
Patient Education
[2024-06-19] MEDS: TAMIFLU 30 MG PO (07:35)
[2024-06-19] MEDS: LOW STRENGTH ASPIRIN 81 MG PO (07:35)
--- NOTE | 2024-06-19 07:48 | W.PN.CD ---
Today's Communication / Plan
-
Echo pending
Risk factor modification and further CAD work up differ to outpatient
BP is acceptable and on statin
Impression / Plan
-
S: 73 yo female with hx of HTN, DM2, HLD, CKD, bladder CA, who is here for sepsis 2/2 UTI/infected renal stone w/ gram neg bacilli and influenza B. She is s/p ureteral stent placement. She had an elevated troponin in the setting of significant
sepsis likely 2/2 type 2 TN.
Abnormal troponin, peak 7.9 which was admit troponin
- Etiology uncertain but given the magnitude of the troponin a type II TN from sepsis seems likely vs non-ischemic myocardial injury from sepsis is the other possibility
- Given her risk factors she may well have underlying CAD
- Echo pending today, likely outpatient workup for underlying CAD if appropriate
- aggressive risk factor modification
- would like to follow up with [facility] cardiology as an outpatient
Sepsis from Gram negative bacilli and influenza B
- s/p ureteral stent
CKD likely with KRISTEN
- Admit Cr 4.9 Sept 9 3.4
DM, type II
HTN
Mixed hyperlipidemia
Hx bladder cancer
thrombocytopenia
Physical Exam
Vital Signs/Labs
Vital Signs
Temp Pulse Resp BP Pulse Ox
98.5 F 94 24 103/61 93
06/19/24 05:00 06/19/24 05:00 06/19/24 05:00 06/19/24 05:00 06/19/24 05:00
06/18/24 06/19/24 06/20/24
06:59 06:59 06:59
Actual Weight 201 lb 11.567 oz 204 lb 9.423 oz
PT 15.5 Sec (11.4-14.6) H 06/18/24 08:37
INR 1.25 06/18/24 08:37
APTT 42.3 Sec (23.4-35.0) H 06/18/24 08:37
Magnesium 1.9 mg/dl (1.6-2.3) 06/19/24 04:57
Triglycerides Cancelled 06/18/24 22:00
LDL Cholesterol, Calc Cancelled 06/18/24 22:00
VLDL Cholesterol, Calc Cancelled 06/18/24 22:00
HDL Cholesterol Cancelled 06/18/24 22:00
LAB Results
06/17/24 06/17/24 06/18/24
16:50 23:00 06:10
Troponin I 7.940 H* 6.360 H* 5.500 H*
06/18/24
10:07
Troponin I 5.250 H*
Physical Exam
Constitutional: No acute distress and Comfortable
EENT: Anicteric
Cardiovascular: Rhythm & rate is regular and Pedal edema is absent
Respiratory: Respiratory effort normal and Lungs clear to auscul.
GI: Soft
Neuro/Psych: AO x 3
Data Reviewed
-
Date of Service: June 19, 2024
EKG: Tracing Personally Visualized and interpreted ()
Echo: Tracing Personally Visualized and interpreted
Labs: Labs Reviewed by me
--- NOTE | 2024-06-19 08:00 | PTCARENOTE ---
Received pt via handoff. Patient AOx3, FOLEY and afebrile. NSR with palpable pulses on all extremities. 97% on RA. Lungs slightly diminished bilaterally throughout. Hypoactive bowel sounds, soft, round and nontender. Wetzel catheter CDI, draining
cloudy yellow urine. Skin pale and warm. Lidocaine patch on right hip, redness on groins bilaterally (Desenex applied). Sacral foam intact. Insulin and D5 gtts running through right AC and FA. Patient c/o lower back pain when lowering the bed but no
other pain at this time. Safe environment maintained will continue to monitor.
--- NOTE | 2024-06-19 08:02 | W.PN.INTV ---
Today's Communication / Plan
Recommendations
Antibiotics per ID
Insulin drip with goal BG <200
Diabetic RETAIL DIRECTOR consulted
Will likely bridge off insulin drip with her home dose of NovoLog 70/30
Up OOB as tolerated
Serial CBC to monitor plt count; transfuse to keep >20k (>50k if bleeding develops or if Hb becomes unstable)
Start bicarb drip
Pain control of right flank/back
Continue ICU level care for this critically ill patient
Assessment
-
Assessment: 73-year-old female non-smoker with a past medical history of bladder cancer, DM type II, CKD and hypertension who presents with confusion, nausea, right-sided hip/back pain and weakness. She says she has been having right-sided flank
pain for a few months. In the ER she was afebrile to 97.3 �F, pulse rate 115, respiratory rate 20, BP 78/36 and saturating 94% on room air. Initial labs showed leukocytosis to 28.6 with 16% bands, Hb 15.3, platelets 60, serum bicarbonate level 10,
creatinine 4.3, glucose 250, lactate 5.8, T. bili 6.2, CK 4572, troponin 7.94, urinalysis positive for nitrites and +2 leukocyte esterase with trace urine ketones. Beta-hydroxybutyrate was normal at 0.26 and SARS Cov 2 antigen was negative. She
was found to be flu be positive, and blood cultures collected were also positive with GNR. Initial CXR showed bibasilar linear atelectasis, CT head showed no acute intracranial abnormality, and CT chest, abdomen, pelvis showed right-sided staghorn
calculus within the right calyces and extending into the renal pelvis. There was a small foci of air within the right renal pelvis adjacent to the calculus suggestive of emphysematous pyelitis. She was given IVF with 3 L total (2 L NS 0.9% +1 L
LR), antibiotics with vancomycin/Zosyn, started on Levophed drip due to persistent hypotension and also started on insulin infusion. She was admitted to the ICU for further care and now trolley coach driver services consulted for additional
management/recommendations.
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
Impression:
#Septic shock due to pyelonephritis - shock state now resolved as of this AM
#Lactic acidosis due to above: lactate now normalized
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
#DM type II complicated by hyperglycemia
#KRISTEN likely multifactorial from sepsis with acute organ dysfunction, ischemic ATN in setting of shock, and post-obstructive azotemia in setting of right staghorn calculi
#Metabolic acidosis with increased anion gap due to lactic acidosis + KRISTEN; patient not in DKA given normal beta-hydroxybutyrate and only trace urine ketones
#Elevated troponin likely due to demand ischemia with type II DC � peaked at 7.94 on 06/17/2024
#Transaminitis likely due to ischemia
#Rhabdomyolysis
#Thrombocytopenia likely due to sepsis
#Influenza B infection
#Obesity with fatty liver disease
Plan:
- Continue with broad-spectrum antibiotics as per ID
- Currently on Zosyn s/p IV vanco x1 dose
- Proteus species is growing from blood cultures; follow-up sensitivities
- Follow up urine Cx (collected 06/17/2024)
- Vasopressors have been weaned off as of this morning
- Maintain MAP>65
- Maintain SpO2 >90-94% with supplemental O2 if needed
- prn nebulized bronchodilators - patient not currently bronchospastic
- Continue with insulin gtt until BG <200mg/dL x 2-4 hrs
- Avoid hypoglycemia with goal BG >100 and <180
- q1hr FS while on insulin gtt
- q4hr BMP with Mg and PO4
- Replete electrolytes with K>4, Mg>2
- Trend blood gas to monitor pH and pCO2; trend serum HCO3; given steadily decreasing sHCO3 level, bicarb gtt now being started per nephrology
- Patient says she takes Novolog mix 70/30 at home, 38 units BID --> will likely resume her home dose when bridging her off insulin gtt; diabetic RETAIL DIRECTOR consulted
- Urology consulted � she underwent cystoscopy with placement of right JJ stent on 06/18/2024
- Post-operative Urological management per Urology service
- No need to continue trending troponin given it peaked at 7.94 on 06/17/2024
- Trend LFTs
- Monitor platelet count with serial CBC, and transfuse platelets to keep >20k (if pt starts to bleed then will need to keep plt>50k); keep Hb>7g/dL
- Continue Tamiflu x 5 days
- Renally dose all meds/ABx
- Trend UOP + sCr
- Pain control
- Incentive spirometer encouraged
- DVT ppx: HSQ
Critical care statement: A total of 41 minutes of critical care time was provided for this patient today. This includes management of unstable vital signs, evaluation of the patient at bedside, reviewing the patient's pertinent medical records
including radiographs, microbiology, laboratory evaluations, and discussion with primary team, consultants, pharmacy, nutrition, physical therapy, case management, charge nurse, critical care nursing, and respiratory therapy.
Data:
CT chest/abdomen/pelvis without contrast 06/17/2024:
Dependent atelectasis in the visualized lower lungs. There are also linear densities within both lower lungs, which is most likely linear atelectasis and/or scarring.
No evidence of consolidation to suggest pneumonia. There is no evidence for significant pleural or pericardial effusion.
Mild bilateral apical pleuroparenchymal scarring.
Coronary artery calcifications are present. Please correlate with symptoms of and risk factors for coronary artery disease, with further workup as clinically appropriate.
There is a staghorn calculus within the right-sided calyces and renal pelvis. Small foci of air are present within the renal pelvis adjacent to this calculus. This finding would be most suggestive of emphysematous pyelitis.
Moderate diffuse atrophy of the left kidney when compared to the right.
Diffuse fatty infiltration of the liver.
Splenic size is in the upper range of normal, maximum dimension of 12.9 cm.
4.3 cm ovoid homogeneous cystic mass in the left adnexa, likely arising from the left ovary. In a 73-year-old with no previous imaging examination, follow-up pelvic ultrasound is advised.
No evidence for bowel obstruction or free intraperitoneal air. Findings suggesting previous right hemicolectomy.
Subjective Dataa
Subjective Data
Date of Service:
Date of Service: June 19, 2024
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
Subjective:
Patient seen and evaluate this morning. Pressors turned off this morning at around 830AM. BP 109/59, heart rate 85, saturating 93% on RA. She is hungry. Her right-sided back/flank pain is improved. Current BP 101/61, saturating 94% on room air
and heart rate 88. She denies chest pain, MARCIAL, abdominal pain, nausea, fevers or chills.
Review of Systems
General: Other (Negative unless mentioned above)
Objective Data
Data Reviewed
Vital Signs / I&O / Oxygen:
Vital Signs
Temp Pulse Resp BP Pulse Ox
97.9 F 87 23 114/58 95
06/19/24 08:00 06/19/24 09:00 06/19/24 09:00 06/19/24 09:00 06/19/24 09:03
Intake and Output
06/18/24 06/19/24 06/20/24
06:59 06:59 06:59
Intake Total 1664.5 / 1821.3 3769.3 / 3769.3 306 / 306
Output Total 110 / 110 2605 / 2605 375 / 375
Balance 1554.5 / 1711.3 1164.3 / 1164.3 -69 / -69
SaO2 95
Physical Exam
General: Respiratory Distress (negative), Comfortable, Chills (negative), Sweats (negative) and Good Appetite
HEENT: Normocephalic and Anicteric
Cardiovascular: S1-S2 and Peripheral Edema (negative)
Respiratory: Wheeze (negative), Crackles (Bibasilar) and Rhonchi (negative)
GI: Soft, Distended (Abdominal obesity), Non Tender and Normal Bowel Sounds
Neurology: Awake, Alert and Tremors (negative)
Skin: Warm, Dry and Jaundice (negative)
Labs/Micro/Reports
Microbiology
06/17/24 16:50 Blood/Venous Blood Culture - Preliminary
Proteus species
06/17/24 16:50 Blood/Venous Gram Stain - Preliminary
06/17/24 16:49 Blood/Venous Blood Culture - Preliminary
Positive culture in progress
06/17/24 16:49 Blood/Venous Gram Stain - Preliminary
06/17/24 16:40 Nasal Swab Influenza Types A & B (AKSHAT) - Final
Influenza B Positive, NAAT
[2024-06-19 08:20] LABS: Glucose - Point of Care 217 mg/dl (70-99)
[2024-06-19] MEDS: DESENEX/MITRAZOL/ZEASORB 1 APPLIC TOPICAL ×2 (08:41→20:51)
[2024-06-19 09:23] LABS: Glucose - Point of Care 248 mg/dl (70-99)
--- NOTE | 2024-06-19 09:24 | W.PN.HOSP.TC ---
Today's Communication/Plan
-
IV antibiotics. Bicarb infusion.
Assessment / Plan
Assessment / Plan
Gen-AAOx3, NAD, obese
HEENT-NC, AT, anicteric, clear oral mm
Neck-supple
CV-reg, no M, +S1/S2
Lungs-clear B/L
Abd-soft, NT, ND
Ext-no edema
Musculoskeletal-no cyanosis, clubbing
Skin-warm and dry
Neuro-grossly non-focal
Psych-calm, cooperative
A/P:
Septic shock -possibly due to right sided emphysematous pyelitis without emphysematous pyelonephritis. Staghorn calculus noted on CT status post right ureteral stent. Continue vasopressors, blood pressure holding, Levophed tapering off. Continue
IV fluids. Continue broad-spectrum antibiotics. Await cultures. Monitor in ICU. Rn Residential consulted. Lactic acidosis improving. Discussed with miller first today. Discussed with golf cart repairer today.
Staghorn calculus, right emphysematous pyelonephritis -this is the source of sepsis. CT scan noted. IR and urology consulted. Patient unaware of history of nephrolithiasis. Denies history of hematuria.
Acute metabolic encephalopathy -likely due to septic shock, KRISTEN, critical illness. CT head without acute disease. Mental status improving.
KRISTEN -likely due to septic shock, volume depletion. Repeat labs in the morning after IV fluids. Severe Metabolic acidosis due to DKA, shock. Consult nephrology. Creatinine improved somewhat to 4.0. Urine output minimal, 110 cc overnight.
Baseline unknown. Given lack of anemia doubt significant chronic kidney disease. CT does show moderate diffuse atrophy of the left kidney.
DM2 with DKA -continue IV insulin, IV fluids, NPO and possible start diet today. Check hemoglobin A1c. Glucose elevated this morning. Still with significant anion gap metabolic acidosis, bicarbonate low. Suspect acidosis multifactorial including
KRISTEN rather than DKA. Add bicarbonate to IV fluids.
Monitor BMP. She uses 70/30 insulin at home, 38 units twice daily. Consult diabetes DIRECTOR OF MEDICAL EDUCATION on Wednesday.
Acute influenza B infection -continue Tamiflu at renal doses.
Elevated LFTs -etiology unclear but differential diagnosis includes sepsis and shock. CT shows diffuse fatty infiltration of the liver with no evidence of a focal hepatic lesion. Prior cholecystectomy noted. No evidence of biliary ductal dilation.
Non-STEMI -EKG reviewed, shows sinus tachycardia with age-indeterminate anterior lateral and inferior ST changes. She denies cardiovascular symptoms. Continue aspirin. Cardiology consulted. Troponin trending down.
Thrombocytopenia -suspect acute and due to critical illness. Suspect possible DIC given mild coagulopathy. Recheck coagulation parameters, fibrinogen, D-dimer. Not anemic, doubt TTP.
Acute nontraumatic rhabdomyolysis -suspect due to sepsis, shock, limited mobility. Recheck CPK. Continue IV fluids.
Left adnexal mass -noted on CT, 4.3 cm. Homogeneous. Will need pelvic ultrasound when medically stable.
Essential hypertension -hold home medications for hypotension, shock.
Hyperlipidemia -on atorvastatin, hold for now given rhabdomyolysis.
History of bladder cancer -treated with tumor resection, intravesicular chemotherapy.
History of right hemicolectomy -done for spontaneous perforation of the colon according to family.
Obesity due to excess calories
Full code
Time spent 52 minutes
Anticipated Discharge: > 48 hours
Subjective/Interval History
-
Date of Service: June 19, 2024
Patient denies any new complaints today. No abdominal pain nausea vomiting
Objective Data
-
Labs:
Laboratory Results
06/18/24 06/19/24 06/19/24
22:01 02:03 04:57
WBC 17.4 H
Hgb 11.6 L
Hct 32.1 L
Plt Count 38 L
Sodium 136 139 139
Potassium 4.0 3.8 3.8
Chloride 106 108 H 107
Carbon Dioxide 19 L 18 L 18 L
BUN 66 H 67 H 66 H
Creatinine 3.5 H 3.5 H 3.4 H
Glucose 268 H 231 H 219 H
Calcium 8.3 L 8.6 8.7
Total Bilirubin 3.2 H
AST 184 H
ALT 217 H
Alkaline Phosphatase 131 H
06/19/24 06/19/24
10:00 12:00
WBC Pending
Hgb Pending
Hct Pending
Plt Count Pending
Sodium Pending
Potassium Pending
Chloride Pending
Carbon Dioxide Pending
BUN Pending
Creatinine Pending
Glucose Pending
Calcium Pending
Total Bilirubin
AST
ALT
Alkaline Phosphatase
Vital Signs:
Vital Signs
Temp Pulse Resp BP Pulse Ox
97.9 F 87 23 114/58 95
06/19/24 08:00 06/19/24 09:00 06/19/24 09:00 06/19/24 09:00 06/19/24 09:03
I&O
06/18/24 06/19/24 06/20/24
06:59 06:59 06:59
Intake Total 1664.5 / 1821.3 3769.3 / 3769.3 306 / 306
Output Total 110 / 110 2605 / 2605 375 / 375
Balance 1554.5 / 1711.3 1164.3 / 1164.3 -69 / -69
--- NOTE | 2024-06-19 09:56 | W.PN.URO.CBU ---
Today's Communication / Plan
-
Keep Wetzel
Follow labs
Continue antibiotics
Await cultures
Assessment / Plan
-
Probable urosepsis
Right staghorn stone
Gas in right renal pelvis
KRISTEN
---
History of superficial bladder cancer manage at [facility]
Diagnosis
-
Date of Service: June 19, 2024
-
Patient Diagnosis:
Probable urosepsis/complicated UTI
Right staghorn stone with gas in renal pelvis. No evidence of gas in renal parenchyma
KRISTEN
---
Patient w/o prior history
History of Type 2 DM
---
Discussed management with Hospitalists and IRAD earlier today
Best drain management option would be a right nephrostomy tube, but Dr. Brown has appropriate concerns regarding the patient's use of aspirin and her relative thrombocytopenia given access might require multiple needle passes
Fortunately, patient is responding favorably to fluid resuscitation
I will proceed with retrograde JJ stent placement and we will observe the patient the next 24 hours and then re-address the role for percutaneous nephrostomy tube
---
Patient was advised regarding the need for urgent intervention to attempt to decompress/drain the right renal collecting system, including risks of surgery and anesthesia, most notably the potential for worsening symptoms of sepsis and gross
hematuria along with potential right ureteral injury
She has provided written and verbal consent
---
She has a history of superficial bladder cancer: s/p TURBT with intravesical therapy ([facility])
Subjective
-
Feels better
No catheter bother
Objective
-
Vital Signs
Temp Pulse Resp BP Pulse Ox
97.9 F 85 18 114/58 94
06/19/24 08:00 06/19/24 09:45 06/19/24 09:45 06/19/24 09:00 06/19/24 09:45
Intake and Output
06/18/24 06/19/24 06/20/24
06:59 06:59 06:59
Intake Total 1664.5 / 1821.3 3769.3 / 3769.3 306 / 306
Output Total 110 / 110 2605 / 2605 375 / 375
Balance 1554.5 / 1711.3 1164.3 / 1164.3 -69 / -69
Intake:
Oral fluids 60 / 60 50 / 50
IV fluids (Total) 1554.5 / 1711.3 3219.3 / 3219.3 306 / 306
D5/0.45%NSS with KCL 20 MEQ 20 1350 / 1500 300 / 300
meq In 1,000 ml @ 150 mls/hr IV
.Q6H40M ROSARIO Rx#:[id number]
D5/0.45%NaCl 1,000 ml @ 150 mls 2250 / 2250 300 / 300
/hr IV .Q6H44M ROSARIO with KCl 20
Meq Rx#:[id number]
Norepinephrine 174.5 / 178.3 3.8 / 3.8
Sterile Water For Injection 600 / 600
1000 ml 1,000 ml @ 100 mls/hr
IV .P20Y92S ROSARIO with Sodium
Bicarbonate 150 Meq with KCl 20
Meq Rx#:[id number]
insulin 30 / 33 65.5 / 65.5 6 / 6
IV piggybacks 50 / 50 500 / 500
Output:
Urine, Wetzel 1555 / 1555 375 / 375
Urine, Voided 110 / 110 1050 / 1050
Other:
Number of approximated SMALL 1
amounts of urine
Number of approximated MODERATE 1
amounts of urine
Number of approximated LARGE 1 1
amounts of urine
Review of Systems
-
Constitutional: Fatigue
Respiratory: No Symptoms
Abdomen/GI: No Symptoms
Neurological: No Symptoms
Physical Exam
-
General - well nourished, no acute distress
Abdomen - soft, non-tender
Genitalia - normal with Wetzel draining clear urine
Counseling
-
Keep Wetzel
Definitive stone surgery after acute illness is managed
--- NOTE | 2024-06-19 10:04 | W.PN.NEPH.PH ---
Today's Communication / Plan
-
change iVF to bicarb
Assessment/Plan
-
Impression:
Acute kidney injury
Chronic kidney disease with unknown baseline
acute metabolic encephalopathy/Hyperglycemia
Anion gap metabolic acidosis of 26
Sepsis with suspected underlying uroseptic source:Proteus
Right sided kidney staghorn calculus with associated pyelonephritis
Left renal atrophy
History of hypertension
History of dyslipidemia
History of bladder cancer status post tumor resection
Diabetes
Non-ST elevation PR
Influenza positive
Thrombocytopenia
Elevated CPK
Plan:
KRSITEN:
-Likely due to profound prerenal stimulus from volume depletion from HHNK and sepsis
improving cr to 3.4 and non oliguric with seth, s/p JJ stent for complicated UTI on 06/18
baseline cr unknown, reports follow Nephro at [facility]
met acidosis-mild gap, possible from KRISTEN than DKA, note on Invokana at home
IVF changed overnight, would suggest to change back alkaline IVF
-No acute HD requirement at this time
abx per primary adjust renally,
BP stable off pressors, echo pending for high trop
LFTs better, CK improved to 348
follow labs
-
-
Date of Service: June 19, 2024
CC / HPI / ROS
-
Chief Complaint:
KRISTEN with CKD
History of Present Illness:
cr improving to 3.4, non oliguric with seth
BP stable off pressors
no fever, bicarb at 18, gap 16
trop, ,LFTs, CK are better
WBC improving
Review of Systems:
no cp or sob
no abd pain
on RA
Labs
-
Labs:
eGFR 13.61 06/19/24 04:57
Albumin 2.6 g/dl (3.5-5.0) L 06/19/24 04:57
Physical Exam
-
Vital Signs:
Vital Signs
Temp Pulse Resp BP Pulse Ox
97.9 F 87 19 109/59 93
06/19/24 08:00 06/19/24 10:00 06/19/24 10:00 06/19/24 10:00 06/19/24 10:00
Cardiovascular:: Regular rate and rhythm
Lung Excursion:: Normal (decreased)
Abdomen:: Nontender and Soft
Extremity Edema:: None: Bilateral:
Seth Catheter: Yes
[2024-06-19 10:10] LABS: Glucose - Point of Care 249 mg/dl (70-99)
--- NOTE | 2024-06-19 11:11 | W.PN.ID1 ---
Date of Service
Date of Service: June 19, 2024
Today's Communication
Continue antibiotics.
Assessment / Plan
Right pyelonephritis
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
Obstructive uropathy
- S/p right ureteral stent placement
Marked leukocytosis
Proteus bacteremia
Influenza B positive; Patient asymptomatic
Right staghorn calculi
KRISTEN on CKD
DM type II; uncontrolled. A1c = 8.4
Lactic acidosis
Transaminitis
Elevated troponin
Rhabdomyolysis
HTN
Dyslipidemia
Hx bladder CA
Recommendations:
Continue with Zosyn.
Although asymptomatic, continue with Tamiflu given recovery of Influenza B
Repeat blood cultures have been obtained to assess clearance.
Follow white count / temperature curve.
Await sensitivity data of currently recovered bacterial isolates to guide further antimicrobial selection and potential de-escalation.
Continue with supportive measures.
����������������������������������������������������������
Chief Complaint
-: Leukocytosis and Bacteremia
Subjective / Review of Systems
Patient seen and examined. Reports feeling improved today. Underwent placement of right JJ ureteral stent yesterday.
Review of Systems: No Fever and No Chills
Vital Signs / Physical Exam
Vital Signs
Vital Signs
Temp Pulse Resp BP Pulse Ox
97.9 F 87 19 109/59 93
06/19/24 08:00 06/19/24 10:00 06/19/24 10:00 06/19/24 10:00 06/19/24 10:00
Physical Exam
Constitutional: Comfortable and Non-toxic
Eyes: No Conjunctival Hemorrhage and Sclera Anicteric
Cardiovascular: S1/S2; Negative S3/S4
Pulmonary: Non Labored
Gastrointestinal: Soft and Non Tender
Genito-Urinary: Wetzel and Turbid Urine (Slight); Negative Hematuria
Extremities: Negative Edema, Cyanosis or Erythema
Psychological: Calm
Objective Data
Lab Data
Lab Results
06/19/24 12:00
PT 15.5 Sec (11.4-14.6) H 06/18/24 08:37
INR 1.25 06/18/24 08:37
APTT 42.3 Sec (23.4-35.0) H 06/18/24 08:37
Estimated Creat Clear 17 ml/min 06/19/24 04:57
Lactic Acid 1.9 mmol/L (0.7-2.0) 06/19/24 04:57
Total Bilirubin 3.2 mg/dl (0.2-1.3) H 06/19/24 04:57
GGT 859 U/L (12-43) H 06/17/24 16:35
AST 184 U/L (14-36) H 06/19/24 04:57
ALT 217 U/L (0-35) H 06/19/24 04:57
Alkaline Phosphatase 131 U/L (38-126) H 06/19/24 04:57
Most recent labs reviewed.
Micro Results:
06/17/24 16:49 Blood Culture - Preliminary
Blood/Venous Proteus species
Gram Stain - Preliminary
06/17/24 16:50 Blood Culture - Preliminary
Blood/Venous Proteus species
Gram Stain - Preliminary
06/19/24 06:02 Blood Culture - Pending
Blood/Venous
06/19/24 04:57 Blood Culture - Pending
Blood/Venous
06/17/24 16:51 Urine Culture - Pending
Urine
06/17/24 16:40 Influenza Types A & B (AKSHAT) - Final
Nasal Swab Influenza B Positive, NAAT
Imaging:
06/17/2024 CT chest/abdomen/pelvis: There is a staghorn calculus within the right calyces, and extending into the right renal pelvis. There are small foci of air within the right renal pelvis adjacent to the calculus. No areas seen within the renal
parenchyma or findings to suggest emphysematous pyelonephritis. There is moderate diffuse atrophy of the left kidney, and no evidence for air within the left collecting system. No air identified within the bladder. Patient is status post
cholecystectomy. No evidence for biliary ductal dilatation. Please see full dictation for additional detail. Film personally viewed.
[2024-06-19 11:18] LABS: Glucose - Point of Care 232 mg/dl (70-99)
[2024-06-19 11:29] LABS: Venous Blood Gas B.E. -7.8 mmol/L (-4 to +4); Venous Blood Gas HCO3 17.6 mmol/L (22-27); Venous Blood Gas O2 Sat % 99.7 %; Venous Blood Gas pCO2 35 mmHg (35-48); Venous Blood Gas pH 7.31 (7.32-7.43); Venous Blood Gas pO2 103 mmHg (30-50)
[2024-06-19 11:37] LABS: Hematocrit 32.5 % (37.0-47.0); Hemoglobin 11.7 g/dL (12.0-16.0); Mean Corpuscular Volume 86.2 fL (81.0-99.0); Mean Platelet Volume 12.6 fL (7.4-10.4); Platelet Count 53 10^3/uL (130-400); Red Blood Cell Count 3.77 10^6/uL (4.20-5.40); Red Cell Dist. Width 14.7 % (11.5-14.5); White Blood Cell Count 17.1 10^3/uL (4.8-10.8)
[2024-06-19 11:53] LABS: Blood Urea Nitrogen 62 mg/dl (7-17); Calcium 8.9 mg/dl (8.4-10.2); Carbon Dioxide 14 mmol/L (22-30); Chloride 109 mmol/L (98-107); Estimated Creatinine Clearance 18 ml/min; Glucose 244 mg/dl (70-99); Magnesium 2.2 mg/dl (1.6-2.3); Phosphorus 3.7 mg/dl (2.5-4.5); Sodium 141 mmol/L (135-145); eGFR 15.21
[2024-06-19 12:13] LABS: Glucose - Point of Care 245 mg/dl (70-99)
--- NOTE | 2024-06-19 12:24 | PTCARENOTE ---
Pt systems reassessed, labs drawn, hygiene performed. Lab results seen and sent to Dr. Baker via [place] text. Orders to DC D5 and replace with BiCarb Bolus and gtt. Will continue to monitor.
[2024-06-19] MEDS: SODIUM BICARBONATE 50 MEQ IV (12:34)
[2024-06-19] MEDS: SODIUM BICARBONATE 1150 MEQ IV ×2 (12:47→23:29)
[2024-06-19 13:07] LABS: Glucose - Point of Care 231 mg/dl (70-99)
[2024-06-19 14:05] LABS: Glucose - Point of Care 197 mg/dl (70-99)
--- NOTE | 2024-06-19 14:59 | CM ---
CM following re: discharge planning.
Discussed in Rounds, reviewed pt's chart, met with pt and pt's at bedside.
Per Rounds meeting, pt is off pressors, remains NPO, continue supportive care.
Pt reports she just recently moved to [place] from [place] and resides with in a condo one floor, no steps. Pt reports she ambulates mostly with a cane, has a walker. Pt expressed her desire to return back home at discharge with [facility]
services and she preferred [facility]. A referral to [facility] made.
PT and OT will evaluate the pt when clinically appropriate to determine a level of care at discharge.
D/C plan; home with most likely [facility] and family support. Family to transport at discharge.
CM will follow with discharge plan updates as hospitalization progresses
[2024-06-19 15:05] LABS: Glucose - Point of Care 187 mg/dl (70-99)
[2024-06-19 16:15] LABS: Glucose - Point of Care 188 mg/dl (70-99)
--- NOTE | 2024-06-19 16:33 | PN.DE ---
Diabetes Education
- -
Diabetes Education: Return to provide diabetes education- monitor instructions and pt declined stating that she would like to rest a little bit and that she is not up to a lengthy discussion. Pt requested another attempt tomorrow when she is feeling
better.
[2024-06-19 17:01] LABS: Glucose - Point of Care 178 mg/dl (70-99)
[2024-06-19] MEDS: NOVOLIN R INSULIN INFUSION 100 IV (17:23)
[2024-06-19 18:08] LABS: Blood Urea Nitrogen 62 mg/dl (7-17); Calcium 8.8 mg/dl (8.4-10.2); Carbon Dioxide 22 mmol/L (22-30); Chloride 107 mmol/L (98-107); Estimated Creatinine Clearance 19 ml/min; Glucose 163 mg/dl (70-99); Magnesium 2.2 mg/dl (1.6-2.3); Phosphorus 3.5 mg/dl (2.5-4.5); Potassium 3.5 mmol/L (3.5-5.1); Sodium 141 mmol/L (135-145); eGFR 15.82
[2024-06-19 18:14] LABS: B-Hydroxybutyrate 0.06 mmol/L (0.02-0.27)
[2024-06-19 18:19] LABS: Glucose - Point of Care 169 mg/dl (70-99)
--- NOTE | 2024-06-19 18:24 | PTCARENOTE ---
ALl systems reassessed. Pt switched to 2000 genesis(17 Carb) diet. Labs drawn and sent. Family remains at bedside. Will continue to monitor.
[2024-06-19] MEDS: NOVOLOG FLEXPEN 2 UNITS SC (18:49)
--- NOTE | 2024-06-19 18:50 | W.PN.ANS.POP ---
Anesthesia Post Operative
- Anesthesia Post Op Note
Vital Signs Stable-See Nursing Note: Yes
Airway Patent: Yes
Adequate Pain Control: Yes
Change in Mental Status: No
Current Postoperative Nausea & Vomiting: No
Anesthesia Complications: No
General Anesthetic Recall: No
Unplanned Admission: No
Post Op Hydration Adequate: Yes
[2024-06-19 19:07] LABS: % Basophils 0.5 % (0-2); % Eosinophils 0.6 % (0-6); % Immature Granulocytes 0.7 % (0-0.5); % Lymphocytes 8.9 % (20.5-51.1); % Monocytes 4.6 % (1.7-9.3); % Neutrophils 84.7 % (42.2-75.2); Absolute Basophils 0.1 10^3/uL (0-0.2); Absolute Eosinophils 0.1 10^3/uL (0-0.7); Absolute Immature Granulocytes 0.1 10^3/uL (0-0.05); Absolute Lymphocytes 1.5 10^3/uL (1.2-3.4); Absolute Monocytes 0.8 10^3/uL (0.1-0.6); Absolute Neutrophils 14.2 10^3/uL (1.4-6.5); Hematocrit 32.1 % (37.0-47.0); Hemoglobin 11.8 g/dL (12.0-16.0); Mean Corp Hgb Conc. 36.8 g/dL (33.0-37.0); Mean Corpuscular Hgb 31.3 pg (27.0-31.0); Mean Corpuscular Volume 85.1 fL (81.0-99.0); Mean Platelet Volume 11.8 fL (7.4-10.4); Nucleated Red Blood Cells % 0 %; Platelet Count 55 10^3/uL (130-400); Red Blood Cell Count 3.77 10^6/uL (4.20-5.40); Red Cell Dist. Width 14.8 % (11.5-14.5); Reticulocyte Count 2.5 % (0.4-2.8); White Blood Cell Count 16.8 10^3/uL (4.8-10.8)
[2024-06-19 19:29] LABS: Glucose - Point of Care 184 mg/dl (70-99)
--- NOTE | 2024-06-19 20:00 | PTCARENOTE ---
Rec'd pt resting in bed, denies pain, cooperative, SR, bp stable, + pulses, + gen puffiness, on glycemic protoca,- see flow sheet for titrations of insulin gtt, RA. lungs decr in bases, sat 93, + bowel sounds, no bm, abd obese, soft, no n/v, poor
appetite, seth draining cloudy yellow urine
[2024-06-19 20:19] LABS: Glucose - Point of Care 163 mg/dl (70-99)
[2024-06-19 21:42] LABS: Haptoglobin 82 mg/dL (30-200)
[2024-06-19] MEDS: LANTUS 0.3 UNITS SC (21:58)
[2024-06-19 22:08] LABS: Glucose - Point of Care 133 mg/dl (70-99)
[2024-06-20] VITALS (20 sets, daily range): BP systolic 108–138; BP diastolic 62–84; PULSE 79; O2SAT 93; BMI 32.6
--- NOTE | 2024-06-20 | PTCARENOTE ---
Addendum entered by Poonam Fonseca RN 06/20/24 02:05:
lungs w/ fine bibas crackles
Original Note:
sys reviewed, changes noted, insulin gtt off per order, dilaudid 0.5 mg iv given for R hip pain, tylenol 650mg po given for headache, chg bath done, linens changed
[2024-06-20] MEDS: TYLENOL 650 MG PO ×3 (00:02→13:45)
[2024-06-20] MEDS: DILAUDID 0.5 MG IV ×3 (00:06→19:50)
[2024-06-20 00:07] LABS: Glucose - Point of Care 104 mg/dl (70-99)
[2024-06-20] MEDS: ZOSYN 50 IV ×2 (03:33→09:35)
[2024-06-20 03:59] LABS: % Basophils 0.3 % (0-2); % Eosinophils 0.1 % (0-6); % Immature Granulocytes 1.2 % (0-0.5); % Monocytes 7.7 % (1.7-9.3); % Neutrophils 79.7 % (42.2-75.2); Absolute Basophils 0.1 10^3/uL (0-0.2); Absolute Immature Granulocytes 0.2 10^3/uL (0-0.05); Absolute Lymphocytes 1.8 10^3/uL (1.2-3.4); Absolute Monocytes 1.2 10^3/uL (0.1-0.6); Absolute Neutrophils 12.8 10^3/uL (1.4-6.5); Hematocrit 32.1 % (37.0-47.0); Hemoglobin 11.8 g/dL (12.0-16.0); Mean Corp Hgb Conc. 36.8 g/dL (33.0-37.0); Mean Corpuscular Hgb 32.3 pg (27.0-31.0); Mean Corpuscular Volume 87.9 fL (81.0-99.0); Mean Platelet Volume 11.9 fL (7.4-10.4); Nucleated Red Blood Cells % 0 %; Platelet Count 59 10^3/uL (130-400); Red Blood Cell Count 3.65 10^6/uL (4.20-5.40); Red Cell Dist. Width 14.6 % (11.5-14.5); White Blood Cell Count 16.1 10^3/uL (4.8-10.8)
--- NOTE | 2024-06-20 04:00 | PTCARENOTE ---
sys reviewed, changes noted
[2024-06-20 04:14] LABS: ALT (SGPT) 173 U/L (0-35); AST (SGOT) 102 U/L (14-36); Albumin 2.6 g/dl (3.5-5.0); Alkaline Phosphatase 209 U/L (38-126); Blood Urea Nitrogen 64 mg/dl (7-17); Carbon Dioxide 28 mmol/L (22-30); Chloride 106 mmol/L (98-107); Direct Bilirubin 0.7 mg/dl (0.0-0.4); Estimated Creatinine Clearance 21 ml/min; Glucose 140 mg/dl (70-99); Potassium 3.6 mmol/L (3.5-5.1); Sodium 142 mmol/L (135-145); Total Bilirubin 2.8 mg/dl (0.2-1.3); Total Protein 4.7 g/dl (6.3-8.2); eGFR 17.95
[2024-06-20] MEDS: TAMIFLU 30 MG PO (07:54)
[2024-06-20] MEDS: DESENEX/MITRAZOL/ZEASORB 1 APPLIC TOPICAL ×2 (07:55→19:52)
[2024-06-20] MEDS: LOW STRENGTH ASPIRIN 81 MG PO (07:55)
--- NOTE | 2024-06-20 08:05 | W.PN.CD ---
Today's Communication / Plan
-
Ischemic eval as outpatient
Aggressive risk factor modification on statin, HR and BP are acceptable
We will sign off and arrange outpatient follow up.
Please call back with questions/concerns.
Impression / Plan
-
S: 73 yo female with hx of HTN, DM2, HLD, CKD, bladder CA, who is here for sepsis 2/2 UTI/infected renal stone w/ gram neg bacilli and influenza B. She is s/p ureteral stent placement. She had an elevated troponin in the setting of significant
sepsis likely 2/2 type 2 IN.
Abnormal troponin, peak 7.9 which was admit troponin
- Etiology uncertain but given the magnitude of the troponin a type II IN from sepsis seems most likely vs non-ischemic myocardial injury from sepsis is the other possibility
- Given her risk factors she may well have underlying CAD
- Echo pending below, but normal function and no wall motion abnormality
- aggressive risk factor modification
- would like to follow up with [facility] cardiology as an outpatient where she will have ischemic eval
Sepsis from Gram negative bacilli and influenza B
- s/p ureteral stent
CKD likely with KRISTEN
- Admit Cr 4.9 Sept 10 2.7, continues to improve
DM, type II
HTN
Mixed hyperlipidemia
Hx bladder cancer
thrombocytopenia
Subjective: Continues to feel better, denies any CP or other ischemic symptoms
TTE: CONCLUSIONS
Normal biventricular size and systolic function without regional wall motion
abnormality. Estimated LVEF 65-70%.
Stage I diastolic dysfunction suggestive of abnormal relaxation.
No significant valve disease.
No prior study available for comparison.
Physical Exam
Vital Signs/Labs
Vital Signs
Temp Pulse Resp BP Pulse Ox
98.9 F 89 14 138/75 93
06/20/24 03:57 06/20/24 06:00 06/20/24 06:00 06/20/24 06:00 06/20/24 06:00
06/19/24 06/20/24 06/21/24
06:59 06:59 06:59
Actual Weight 204 lb 9.423 oz 201 lb 11.567 oz
06/20/24 03:32
06/20/24 03:32
PT 15.5 Sec (11.4-14.6) H 06/18/24 08:37
INR 1.25 06/18/24 08:37
APTT 42.3 Sec (23.4-35.0) H 06/18/24 08:37
Magnesium 2.2 mg/dl (1.6-2.3) 06/19/24 17:44
Triglycerides Cancelled 06/18/24 22:00
LDL Cholesterol, Calc Cancelled 06/18/24 22:00
VLDL Cholesterol, Calc Cancelled 06/18/24 22:00
HDL Cholesterol Cancelled 06/18/24 22:00
LAB Results
06/17/24 06/17/24 06/18/24
16:50 23:00 06:10
Troponin I 7.940 H* 6.360 H* 5.500 H*
06/18/24
10:07
Troponin I 5.250 H*
Physical Exam
Constitutional: No acute distress and Comfortable
EENT: Anicteric
Cardiovascular: Rhythm & rate is regular and Pedal edema present (trace)
Respiratory: Respiratory effort normal and Lungs clear to auscul.
GI: Soft
Neuro/Psych: AO x 3
Data Reviewed
-
Date of Service: June 20, 2024
EKG: Tracing Personally Visualized and interpreted (sr)
Echo: Report Reviewed by me
Labs: Labs Reviewed by me
[2024-06-20] MEDS: NOVOLOG FLEXPEN-MODERATE RESISTANCE 1 UNITS SC ×3 (08:08→18:14)
[2024-06-20 08:12] LABS: Glucose - Point of Care 158 mg/dl (70-99)
--- NOTE | 2024-06-20 08:15 | W.PN.INTV ---
Today's Communication / Plan
Recommendations
Antibiotics per ID
Diabetic JUNCTION MAKER consulted - resume 70/30 novolog
Up OOB as tolerated
Monitor Hb + plt count; transfuse to keep >20k (>50k if bleeding develops or if Hb becomes unstable), keep Hb>7-8
Stop bicarb drip
Pain control of right flank/back
Patient is stable for downgrade out of ICU to telemetry. Janitorial Assistant/Pulmonary service will now sign off. Please reconsult if there are any additional questions/concerns, or if patient's respiratory status deteriorates.
Assessment
-
Assessment: 73-year-old female non-smoker with a past medical history of bladder cancer, DM type II, CKD and hypertension who presents with confusion, nausea, right-sided hip/back pain and weakness. She says she has been having right-sided flank
pain for a few months. In the ER she was afebrile to 97.3 �F, pulse rate 115, respiratory rate 20, BP 78/36 and saturating 94% on room air. Initial labs showed leukocytosis to 28.6 with 16% bands, Hb 15.3, platelets 60, serum bicarbonate level 10,
creatinine 4.3, glucose 250, lactate 5.8, T. bili 6.2, CK 4572, troponin 7.94, urinalysis positive for nitrites and +2 leukocyte esterase with trace urine ketones. Beta-hydroxybutyrate was normal at 0.26 and SARS Cov 2 antigen was negative. She
was found to be flu be positive, and blood cultures collected were also positive with GNR. Initial CXR showed bibasilar linear atelectasis, CT head showed no acute intracranial abnormality, and CT chest, abdomen, pelvis showed right-sided staghorn
calculus within the right calyces and extending into the renal pelvis. There was a small foci of air within the right renal pelvis adjacent to the calculus suggestive of emphysematous pyelitis. She was given IVF with 3 L total (2 L NS 0.9% +1 L
LR), antibiotics with vancomycin/Zosyn, started on Levophed drip due to persistent hypotension and also started on insulin infusion. She was admitted to the ICU for further care and now manufacturer's representative services consulted for additional
management/recommendations.
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
Impression:
#Septic shock due to pyelonephritis - shock state now resolved as 06/19/2024
#Lactic acidosis due to above: lactate now normalized
#Proteus mirabilis bacteremia (seen on BCx X2 from 06/17/2024)
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
#DM type II complicated by hyperglycemia - glucose now normalized and pt off insulin gtt since last night
#KRISTEN likely multifactorial from sepsis with acute organ dysfunction, ischemic ATN in setting of shock, and post-obstructive azotemia in setting of right staghorn calculi - KRISTEN improving
#Metabolic acidosis with increased anion gap due to lactic acidosis + KRISTEN; patient not in DKA given normal beta-hydroxybutyrate and only trace urine ketones - acidosis now resolved
#Elevated troponin likely due to demand ischemia with type II PA � peaked at 7.94 on 06/17/2024
#Transaminitis likely due to ischemia - improving
#Rhabdomyolysis - improving
#Thrombocytopenia likely due to sepsis - plt count slowly improving
#Influenza B infection
#Obesity with fatty liver disease
Plan:
- Continue with antibiotics as per ID
- Abx being narrowed to ampicillin s/p Zosyn + s/p IV vanco x1 dose
- Proteus species is growing from blood cultures; follow-up sensitivities
- Follow up urine Cx (collected 06/17/2024) - NGTD
- Vasopressors have been weaned off as of 06/19/2024
- Maintain MAP>65
- Maintain SpO2 >90-94% with supplemental O2 if needed
- prn nebulized bronchodilators - patient not currently bronchospastic
- Pt is now off insulin gtt since midnight
- Avoid hypoglycemia with goal BG >100 and <180
- FS checks can be AC/HS now
- Replete electrolytes with K>4, Mg>2
- Trend serum HCO3; stop bicarb gtt given her acidosis is now resolved; nephrology recs appreciated
- Patient says she takes Novolog mix 70/30 at home, 38 units BID --> resume this now; diabetic JUNCTION MAKER consulted
- Urology consulted � she underwent cystoscopy with placement of right JJ stent on 06/18/2024
- Post-operative management per Urology service
- No need to continue trending troponin given it peaked at 7.94 on 06/17/2024
- Trend LFTs
- Monitor platelet count with serial CBC, and transfuse platelets to keep >20k (if pt starts to bleed then will need to keep plt>50k); keep Hb>7g/dL
- Continue Tamiflu x 5 days
- Renally dose all meds/ABx
- Trend UOP + sCr
- Pain control
- Incentive spirometer encouraged
- DVT ppx: Resume HSQ (initially held due to worsening thrombocytopenia)
Patient is stable for downgrade out of ICU to telemetry. Janitorial Assistant/Pulmonary service will now sign off. Thank you for allowing us to be involved in the care of this patient. Please reconsult if there are any additional questions/concerns, or if
patient's respiratory status deteriorates.
Total time spent today was 55 minutes for this encounter. Time includes reviewing laboratory test/imaging results, reviewing pertinent medical records, obtaining and reviewing medical history, performing an appropriate exam, ordering medications,
tests and procedures. Time also includes documentation of this encounter, coordinating patient care and communicating with other healthcare professionals. Total time does not include separately billed tests performed on this date of service.
Data:
CT chest/abdomen/pelvis without contrast 06/17/2024:
Dependent atelectasis in the visualized lower lungs. There are also linear densities within both lower lungs, which is most likely linear atelectasis and/or scarring.
No evidence of consolidation to suggest pneumonia. There is no evidence for significant pleural or pericardial effusion.
Mild bilateral apical pleuroparenchymal scarring.
Coronary artery calcifications are present. Please correlate with symptoms of and risk factors for coronary artery disease, with further workup as clinically appropriate.
There is a staghorn calculus within the right-sided calyces and renal pelvis. Small foci of air are present within the renal pelvis adjacent to this calculus. This finding would be most suggestive of emphysematous pyelitis.
Moderate diffuse atrophy of the left kidney when compared to the right.
Diffuse fatty infiltration of the liver.
Splenic size is in the upper range of normal, maximum dimension of 12.9 cm.
4.3 cm ovoid homogeneous cystic mass in the left adnexa, likely arising from the left ovary. In a 73-year-old with no previous imaging examination, follow-up pelvic ultrasound is advised.
No evidence for bowel obstruction or free intraperitoneal air. Findings suggesting previous right hemicolectomy.
Subjective Dataa
Subjective Data
Date of Service:
Date of Service: June 20, 2024
Chief Complaint: Janitorial Assistant Follow Up
Subjective:
Patient seen and evaluated today at bedside. She is sitting in chair in no acute distress. Insulin drip was turned off last night at midnight. Patient currently on room air saturating 94%, she is afebrile, pulse rate 89, and BP 128/75. Platelet
count is stable, creatinine slowly improving and blood glucose was 140 this morning on her chemistry lab. Patient denies chest pain, MARCIAL, abdominal pain, nausea, fevers or chills.
Review of Systems
General: Other (Negative unless mentioned above)
Objective Data
Data Reviewed
Vital Signs / I&O / Oxygen:
Vital Signs
Temp Pulse Resp BP Pulse Ox
97.8 F 78 20 126/69 91
06/20/24 11:21 06/20/24 11:00 06/20/24 11:00 06/20/24 11:00 06/20/24 11:00
Intake and Output
06/19/24 06/20/24 06/21/24
06:59 06:59 06:59
Intake Total 3769.3 / 3769.3 2764.2 / 2864.2 830 / 830
Output Total 2605 / 2605 2325 / 2325 500 / 500
Balance 1164.3 / 1164.3 439.2 / 539.2 330 / 330
SaO2 91
Physical Exam
General: Respiratory Distress (negative), Comfortable, Chills (negative), Sweats (negative) and Good Appetite
HEENT: Normocephalic and Anicteric
Cardiovascular: S1-S2 and Peripheral Edema (negative)
Respiratory: Wheeze (negative), Crackles (Bibasilar), Rhonchi (negative) and Non-Labored Respirations
GI: Soft, Distended (Abdominal obesity), Non Tender and Normal Bowel Sounds
Neurology: Awake, Alert and Tremors (negative)
Skin: Warm, Dry and Jaundice (negative)
Labs/Micro/Reports
Lab Data
06/20/24 03:32
06/20/24 03:32
Microbiology
06/17/24 16:50 Blood/Venous Blood Culture - Preliminary
Proteus mirabilis
06/17/24 16:50 Blood/Venous Gram Stain - Final
06/17/24 16:51 Urine Urine Culture - Final
06/17/24 16:49 Blood/Venous Blood Culture - Preliminary
Proteus mirabilis
06/17/24 16:49 Blood/Venous Gram Stain - Preliminary
06/19/24 06:02 Blood/Venous Blood Culture - Preliminary
No Growth in 24 hours- Final report to follow
06/19/24 04:57 Blood/Venous Blood Culture - Preliminary
No Growth in 24 hours- Final report to follow
06/17/24 16:40 Nasal Swab Influenza Types A & B (AKSHAT) - Final
Influenza B Positive, NAAT
--- NOTE | 2024-06-20 08:34 | PN.DE.MGMTRT ---
Insulin Management
- -
06/20/2024: Diabetes Management Consult Follow up:
Patient presented from home with confusion, nausea, right-sided hip/back pain and weakness due to septic shock in setting of Pyelonephritis with PMH: Bladder CA, CKD, HTN, HLD and T2DM, Pt was noted for DKA--> insulin drip. A1C 8.4%, Cr 3.4, eGFR
13.61.
Pt sitting up in chair, pleasant, offers no complaints and able to discuss diabetes management.
CR 2.7, eGFR 17.95. Reports she was taking insulin 38 units BID of NovoLog mix 70/30 ORDER DISPATCHER but not monitoring her blood sugars. States she pays out of pocket for insulin at [facility]. Patient has been given lantus 30 units BID, dose this AM. Will
restart 70/30 insulin with dinner this evening 38 units BID with moderate corrective.
Will return to provide glucose monitor instruction.
Diabetes History
- -
Type of Diabetes: 2
Pre-Admission Diabetes Regimen
06/19/24 06/19/24 06/20/24
11:07 17:44 03:32
Creatinine 3.1 H 3.0 H 2.7 H
Lab Results
Hemoglobin A1c 8.4 % (4.0-5.6) H 06/18/24 06:10
Insulin Pump Settings
IP Diabetes Regimen
06/19/24 06/19/24 06/19/24
09:12 09:59 11:06
Glucose
POC Glucose 248 H 249 H 232 H
06/19/24 06/19/24 06/19/24
11:07 12:01 12:55
Glucose 244 H
POC Glucose 245 H 231 H
06/19/24 06/19/24 06/19/24
13:54 14:54 16:04
Glucose
POC Glucose 197 H 187 H 188 H
06/19/24 06/19/2406/19/24
16:49 17:44 18:07
Glucose 163 H
POC Glucose 178 H 169 H
06/19/24 06/19/24 06/19/24
19:18 20:08 21:57
Glucose
POC Glucose 184 H 163 H 133 H
06/19/24 06/20/24 06/20/24
23:56 03:32 08:01
Glucose 140 H
POC Glucose 104 H 158 H
Meal type: Dinner
Amount consumed: 50%
Patient Education
--- NOTE | 2024-06-20 08:53 | W.PN.HOSP.TC ---
Addendum entered and electronically signed by Arvin Nick MD 06/20/24 15:04:
Type II OR.
Original Note:
Today's Communication/Plan
-
IV antibiotics.
Assessment / Plan
Assessment / Plan
Gen-AAOx3, NAD, obese
HEENT-NC, AT, anicteric, clear oral mm
Neck-supple
CV-reg, no M, +S1/S2
Lungs-clear B/L
Abd-soft, NT, ND
Ext-no edema
Musculoskeletal-no cyanosis, clubbing
Skin-warm and dry
Neuro-grossly non-focal
Psych-calm, cooperative
A/P:
Septic shock -possibly due to right sided emphysematous pyelitis without emphysematous pyelonephritis. Staghorn calculus noted on CT status post right ureteral stent. Continue vasopressors, blood pressure holding, Levophed tapering off. Continue
IV fluids. Continue broad-spectrum antibiotics. Await cultures. Monitor in ICU. Java Web Engineer consulted. Lactic acidosis improving. Discussed with newspaper vendor yesterday. Discussed with aix administrator yesterday.
Staghorn calculus, right emphysematous pyelonephritis -this is the source of sepsis. CT scan noted. IR and urology consulted. Patient unaware of history of nephrolithiasis. Denies history of hematuria.
Acute metabolic encephalopathy -likely due to septic shock, KRISTEN, critical illness. CT head without acute disease. Mental status improving.
KRISTEN -likely due to septic shock, volume depletion. Repeat labs in the morning after IV fluids. Severe Metabolic acidosis due to DKA, shock. Consult nephrology. Creatinine improved somewhat to 4.0. Urine output minimal, 110 cc overnight.
Baseline unknown. Given lack of anemia doubt significant chronic kidney disease. CT does show moderate diffuse atrophy of the left kidney.
DM2 with DKA -continue IV insulin, IV fluids, NPO and possible start diet today. Check hemoglobin A1c. Glucose elevated this morning. Still with significant anion gap metabolic acidosis, bicarbonate low. Suspect acidosis multifactorial including
KRISTEN rather than DKA. Add bicarbonate to IV fluids.
Monitor BMP. She uses 70/30 insulin at home, 38 units twice daily. Consult diabetes OPERATIONS TECH on Wednesday.
Acute influenza B infection -continue Tamiflu at renal doses.
Elevated LFTs -etiology unclear but differential diagnosis includes sepsis and shock. CT shows diffuse fatty infiltration of the liver with no evidence of a focal hepatic lesion. Prior cholecystectomy noted. No evidence of biliary ductal dilation.
Non-STEMI -EKG reviewed, shows sinus tachycardia with age-indeterminate anterior lateral and inferior ST changes. She denies cardiovascular symptoms. Continue aspirin. Cardiology consulted. Troponin trending down.
Thrombocytopenia -suspect acute and due to critical illness. Suspect possible DIC given mild coagulopathy. Recheck coagulation parameters, fibrinogen, D-dimer. Not anemic, doubt TTP.
Acute nontraumatic rhabdomyolysis -suspect due to sepsis, shock, limited mobility. Recheck CPK. Continue IV fluids.
Left adnexal mass -noted on CT, 4.3 cm. Homogeneous. Will need pelvic ultrasound when medically stable.
Essential hypertension -hold home medications for hypotension, shock.
Hyperlipidemia -on atorvastatin, hold for now given rhabdomyolysis.
History of bladder cancer -treated with tumor resection, intravesicular chemotherapy.
History of right hemicolectomy -done for spontaneous perforation of the colon according to family.
Obesity due to excess calories
Full code
Time spent 52 minutes
Anticipated Discharge: 24 - 48 hours
Subjective/Interval History
-
Date of Service: June 20, 2024
Patient feels better overall.
Objective Data
-
Labs:
Laboratory Results
06/20/24
03:32
WBC 16.1 H
Hgb 11.8 L
Hct 32.1 L
Plt Count 59 L
Sodium 142
Potassium 3.6
Chloride 106
Carbon Dioxide 28
BUN 64 H
Creatinine 2.7 H
Glucose 140 H
Calcium 9.0
Total Bilirubin 2.8 H
AST 102 H
ALT 173 H
Alkaline Phosphatase 209 H
Vital Signs:
Vital Signs
Temp Pulse Resp BP Pulse Ox
98.5 F 89 14 138/75 93
06/20/24 08:11 06/20/24 06:00 06/20/24 06:00 06/20/24 06:00 06/20/24 06:00
I&O
06/19/24 06/20/24 06/21/24
06:59 06:59 06:59
Intake Total 3769.3 / 3769.3 2764.2 / 2764.2
Output Total 2605 / 2605 2325 / 2325
Balance 1164.3 / 1164.3 439.2 / 439.2
[2024-06-20] MEDS: LANTUS 0.3 UNITS SC (09:06)
--- NOTE | 2024-06-20 09:45 | W.PN.URO.CBU ---
Today's Communication / Plan
-
Keep Wetzel
Definitive stone management if several weeks
Assessment / Plan
-
Probable urosepsis: Proteus mirabilis bacteremia
Right staghorn stone
Gas in right renal pelvis
KRISTEN: resolving
---
History of superficial bladder cancer manage at [facility]
Diagnosis
-
Date of Service: June 20, 2024
-
Patient Diagnosis:
Probable urosepsis/complicated UTI
Proteus mirabilis bacteremia
Right staghorn stone with gas in renal pelvis. No evidence of gas in renal parenchyma
KRISTEN: improving
---
History of Type 2 DM
---
Patient was advised regarding the need for urgent intervention to attempt to decompress/drain the right renal collecting system, including risks of surgery and anesthesia, most notably the potential for worsening symptoms of sepsis and gross
hematuria along with potential right ureteral injury
She has provided written and verbal consent
---
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
Subjective
-
Feeling better
Minimal right flank discomfort
Objective
-
Vital Signs
Temp Pulse Resp BP Pulse Ox
98.5 F 89 14 138/75 93
06/20/24 08:11 06/20/24 06:00 06/20/24 06:00 06/20/24 06:00 06/20/24 06:00
Intake and Output
06/19/24 06/20/24 06/21/24
06:59 06:59 06:59
Intake Total 3769.3 / 3769.3 2764.2 / 2764.2
Output Total 2605 / 2605 2325 / 2325
Balance 1164.3 / 1164.3 439.2 / 439.2
Intake:
Oral fluids 50 / 50 150 / 150
IV fluids (Total) 3219.3 / 3219.3 2514.2 / 2514.2
D5/0.45%NSS with KCL 20 MEQ 20 300 / 300
meq In 1,000 ml @ 150 mls/hr IV
.Q6H40M ROSARIO Rx#:[id number]
D5/0.45%NaCl 1,000 ml @ 150 mls 2250 / 2250 950 / 950
/hr IV .Q6H44M ROSARIO with KCl 20
Meq Rx#:[id number]
Norepinephrine 3.8 / 3.8
Sterile Water For Injection 1500 / 1500
1000 ml 1,000 ml @ 100 mls/hr
IV .P20I11A ROSARIO with Sodium
Bicarbonate 150 Meq Rx#:
[id number]
Sterile Water For Injection 600 / 600
1000 ml 1,000 ml @ 100 mls/hr
IV .[id number] ROSARIO with Sodium
Bicarbonate 150 Meq with KCl 20
Meq Rx#:[id number]
insulin 65.5 / 65.5 64.2 / 64.2
IV piggybacks 500 / 500 100 / 100
Output:
Urine, Wetzel 1555 / 1555 2325 / 2325
Urine, Voided 1050 / 1050
Other:
Number of approximated MODERATE 1
amounts of urine
Number of approximated LARGE 1
amounts of urine
Laboratory Results
06/20/24 03:32
06/20/24 03:32
Review of Systems
-
Constitutional: Fatigue
Respiratory: No Symptoms
Cardiac: No Symptoms
Abdomen/GI: No Symptoms
Neurological: No Symptoms
Physical Exam
-
General - no acute distress
Abdomen - soft, non-tender, no CVAT
Genitalia - normal with Wetzel draining clear urine
Counseling
-
Keep Wetzel another 24 - 48 hours
Follow BMP
--- NOTE | 2024-06-20 10:00 | PTCARENOTE ---
Pt AOx3 this AM, c/o R flank/hip pain 05/20 0.5mg IV Dilaudid given w/ good effect. PT/OT worked w/ pt, OOB x1 w/ RW, now in chair comfortably. Diabetes and dietary education continue. at bedside. POC discussed. VSS. NSR on monitor. BP wnl.
Wetzel in place w/ cloudy urine noted. BS 158 this AM. Bicarb gtt stopped as ordered. PIV wnl.
--- NOTE | 2024-06-20 11:45 | W.PN.NEPH.PH ---
Today's Communication / Plan
-
monitor off IVF
Assessment/Plan
-
Impression:
Acute kidney injury
Chronic kidney disease with unknown baseline
acute metabolic encephalopathy/Hyperglycemia
Anion gap metabolic acidosis of 26
Sepsis with suspected underlying uroseptic source:Proteus
Right sided kidney staghorn calculus with associated pyelonephritis
Left renal atrophy
History of hypertension
History of dyslipidemia
History of bladder cancer status post tumor resection
Diabetes
Non-ST elevation [place]
Influenza positive
Thrombocytopenia
Elevated CPK
Plan:
KRISTEN:
-Likely due to profound prerenal stimulus from volume depletion from HHNK and sepsis
improving cr to 2.7 and non oliguric with seth, s/p JJ stent for complicated UTI on 06/18
baseline cr unknown, reports follow Nephro at [facility]
met acidosis-improved , ok to d/c bicarb IVF, remains off Invokana
abx per primary adjust renally,
BP stable, echo normal EF
LFTs better, CK improved to 348 06/19
follow labs
-
-
Date of Service: June 20, 2024
CC / HPI / ROS
-
Chief Complaint:
KRISTEN with CKD
History of Present Illness:
cr improving to 2.7, non oliguric with seth
BP stable
no fever, bicarb at 28
trop, ,LFTs, CK are better
WBC improving
Review of Systems:
no cp or sob
no abd pain
on RA
Labs
-
Labs:
WBC 16.1 10^3/uL (4.8-10.8) H 06/20/24 03:32
RBC 3.65 10^6/uL (4.20-5.40) L 06/20/24 03:32
Hgb 11.8 g/dL (12.0-16.0) L 06/20/24 03:32
Hct 32.1 % (37.0-47.0) L 06/20/24 03:32
Plt Count 59 10^3/uL (130-400) L 06/20/24 03:32
Sodium 142 mmol/L (135-145) 06/20/24 03:32
Potassium 3.6 mmol/L (3.5-5.1) 06/20/24 03:32
Chloride 106 mmol/L (98-107) 06/20/24 03:32
Carbon Dioxide 28 mmol/L (22-30) 06/20/24 03:32
BUN 64 mg/dl (7-17) H 06/20/24 03:32
Creatinine 2.7 mg/dL (0.6-1.0) H 06/20/24 03:32
eGFR 17.95 06/20/24 03:32
Glucose 140 mg/dl (70-99) H 06/20/24 03:32
Calcium 9.0 mg/dl (8.4-10.2) 06/20/24 03:32
Phosphorus 3.5 mg/dl (2.5-4.5) 06/19/24 17:44
Albumin 2.6 g/dl (3.5-5.0) L 06/20/24 03:32
Physical Exam
-
Vital Signs:
Vital Signs
Temp Pulse Resp BP Pulse Ox
97.8 F 78 20 126/69 91
06/20/24 11:21 06/20/24 11:00 06/20/24 11:00 06/20/24 11:00 06/20/24 11:00
Cardiovascular:: Regular rate and rhythm
Lung Excursion:: Normal (decreased)
Abdomen:: Nontender and Soft
Extremity Edema:: None: Bilateral:
Seth Catheter: Yes
[2024-06-20 12:00] LABS: Glucose - Point of Care 165 mg/dl (70-99)
--- NOTE | 2024-06-20 12:50 | W.PN.ID1 ---
Date of Service
Date of Service: June 20, 2024
Today's Communication
Continue antibiotics. See below�
Assessment / Plan
Right pyelonephritis
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
Obstructive uropathy
- S/p right ureteral stent placement
Marked leukocytosis; improving
Proteus bacteremia
Influenza B positive; Patient asymptomatic
Right staghorn calculi
KRISTEN on CKD
DM type II; uncontrolled. A1c = 8.4
Lactic acidosis
Transaminitis
Elevated troponin
Rhabdomyolysis
HTN
Dyslipidemia
Hx bladder CA
Recommendations:
Continue antibiotics. Proteus mirabilis sensitivities reviewed. Narrow to ampicillin.
Although asymptomatic, continue with Tamiflu given recovery of Influenza B; to complete a 5-day course (06/21/2024)
Repeat blood cultures no growth to date.
Follow white count / temperature curve.
Continue with supportive measures.
����������������������������������������������������������
Chief Complaint
-: Leukocytosis and Bacteremia
Subjective / Review of Systems
Review of Systems: No Fever, No Chills and No Abdominal Pain
Vital Signs / Physical Exam
Vital Signs
Vital Signs
Temp Pulse Resp BP Pulse Ox
97.8 F 78 20 126/69 91
06/20/24 11:21 06/20/24 11:00 06/20/24 11:00 06/20/24 11:00 06/20/24 11:00
Physical Exam
Constitutional: No Acute Distress, Comfortable and Non-toxic
Head: Normocephalic
Eyes: No Conjunctival Hemorrhage and Sclera Anicteric
Cardiovascular: S1/S2; Negative S3/S4
Pulmonary: Non Labored; Negative Wheezes or Rales
Gastrointestinal: Soft and Non Tender
Genito-Urinary: Wetzel and Turbid Urine (Slight); Negative Hematuria
Extremities: Negative Edema, Cyanosis or Erythema
Psychological: Calm
Objective Data
Lab Data
Lab Results
06/20/24 03:32
06/20/24 03:32
PT 15.5 Sec (11.4-14.6) H 06/18/24 08:37
INR 1.25 06/18/24 08:37
APTT 42.3 Sec (23.4-35.0) H 06/18/24 08:37
Estimated Creat Clear 21 ml/min 06/20/24 03:32
Lactic Acid 1.9 mmol/L (0.7-2.0) 06/19/24 04:57
Total Bilirubin 2.8 mg/dl (0.2-1.3) H 06/20/24 03:32
GGT 859 U/L (12-43) H 06/17/24 16:35
AST 102 U/L (14-36) H 06/20/24 03:32
ALT 173 U/L (0-35) H 06/20/24 03:32
Alkaline Phosphatase 209 U/L (38-126) H 06/20/24 03:32
Most recent labs reviewed.
Micro Results:
06/17/24 16:50 Blood Culture - Preliminary
Blood/Venous Proteus mirabilis
Gram Stain - Final
06/17/24 16:51 Urine Culture - Final
Urine
06/17/24 16:49 Blood Culture - Preliminary
Blood/Venous Proteus mirabilis
Gram Stain - Preliminary
06/19/24 06:02 Blood Culture - Preliminary
Blood/Venous No Growth in 24 hours- Final report to follow
06/19/24 04:57 Blood Culture - Preliminary
Blood/Venous No Growth in 24 hours- Final report to follow
06/17/24 16:40 Influenza Types A & B (AKSHAT) - Final
Nasal Swab Influenza B Positive, NAAT
Imaging:
06/17/2024 CT chest/abdomen/pelvis: There is a staghorn calculus within the right calyces, and extending into the right renal pelvis. There are small foci of air within the right renal pelvis adjacent to the calculus. No areas seen within the renal
parenchyma or findings to suggest emphysematous pyelonephritis. There is moderate diffuse atrophy of the left kidney, and no evidence for air within the left collecting system. No air identified within the bladder. Patient is status post
cholecystectomy. No evidence for biliary ductal dilatation. Please see full dictation for additional detail. Film personally viewed.
[2024-06-20] MEDS: AMPICILLIN 108 MG IV (13:46)
--- NOTE | 2024-06-20 14:20 | PN.DE ---
Diabetes Education
- -
06/20/2024 Diabetes Education for Glucose monitor
Provided and instructed on Contour Next glucose monitor. Patient states she used to test but didnt like the fingersticks. Has no idea where her monitor is. Reviewed each step of lancing device and testing procedure. Patient verbalized
understanding. Will have patient demonstrate at next visit.
at bedside with many questions about diet and CGM. Dietitian consult ordered.
Explained that patient would need 2 office notes from her primary doctor to obtain CGM. Notes written in diabetes education booklet regarding this.
Recommend patient test before each meal and HS and report to her primary after discharge.
--- NOTE | 2024-06-20 14:43 | PN.CDI ---
CDI
- -
CDI:
Physician Documentation Request
Admit Date: 06/17/24 19:19
Dear Doctor Sandoval
06/20 Cardiology progress note states 'Abnormal troponin, Etiology uncertain but given the magnitude of the troponin a type II SD from sepsis seems most likely vs non-ischemic myocardial injury from sepsis is the other possibility'
Hospitalist progress note contains a diagnosis of Non-STEMI.
Please clarify the etiology of the elevated troponin.
NSTEMI
Type II SD
Non ischemic myocardial injury
Other
Use of terms such as suspected, likely, concern for, or probable (associated with a specific diagnosis that is being evaluated, monitored, or treated as if it exists) are acceptable and can be coded in the inpatient setting, when documented at the
time of discharge.
Thank you,
Ivonne Barajas RN, BSN
CDI Specialist
tiger text
Please use your independent medical judgment in providing your response.
[2024-06-20 17:15] LABS: Glucose - Point of Care 176 mg/dl (70-99)
[2024-06-20] MEDS: HEPARIN 5000 UNITS SC (17:18)
[2024-06-20] MEDS: NOVOLOG MIX 70/30 FLEXPEN 38 UNITS SC (18:16)
[2024-06-20 21:35] LABS: Glucose - Point of Care 194 mg/dl (70-99)
[2024-06-21] MEDS: DILAUDID 0.5 MG IV ×3 (00:09→21:41)
[2024-06-21] MEDS: AMPICILLIN 108 MG IV ×2 (02:46→14:47)
[2024-06-21 03:04] VITALS: BP 134/75
[2024-06-21 05:55] LABS: % Basophils 0.3 % (0-2); % Eosinophils 0.3 % (0-6); % Immature Granulocytes 2.4 % (0-0.5); % Lymphocytes 15.2 % (20.5-51.1); % Neutrophils 71.8 % (42.2-75.2); Absolute Immature Granulocytes 0.3 10^3/uL (0-0.05); Absolute Lymphocytes 1.7 10^3/uL (1.2-3.4); Absolute Monocytes 1.1 10^3/uL (0.1-0.6); Absolute Neutrophils 7.9 10^3/uL (1.4-6.5); Hemoglobin 11.8 g/dL (12.0-16.0); Mean Corp Hgb Conc. 35.8 g/dL (33.0-37.0); Mean Corpuscular Hgb 31.9 pg (27.0-31.0); Mean Corpuscular Volume 89.2 fL (81.0-99.0); Mean Platelet Volume 11.3 fL (7.4-10.4); Nucleated Red Blood Cells % 0.2 %; Platelet Count 64 10^3/uL (130-400); Red Cell Dist. Width 14.6 % (11.5-14.5)
[2024-06-21 06:15] LABS: Blood Urea Nitrogen 63 mg/dl (7-17); Calcium 9.8 mg/dl (8.4-10.2); Carbon Dioxide 30 mmol/L (22-30); Chloride 105 mmol/L (98-107); Creatine Phosphokinase 35 U/L (30-135); Estimated Creatinine Clearance 23 ml/min; Glucose 115 mg/dl (70-99); Magnesium 2.1 mg/dl (1.6-2.3); Phosphorus 3.7 mg/dl (2.5-4.5); Sodium 143 mmol/L (135-145); eGFR 20.68
[2024-06-21 07:10] VITALS: BP 140/75
[2024-06-21 07:41] LABS: Glucose - Point of Care 94 mg/dl (70-99)
[2024-06-21] MEDS: TYLENOL 650 MG PO (07:45)
--- NOTE | 2024-06-21 07:58 | PN.DE.MGMTRT ---
Insulin Management
- -
06/21/2024: Diabetes Management Consult Follow up:
Patient presented from home with confusion, nausea, right-sided hip/back pain and weakness due to septic shock in setting of Pyelonephritis with PMH: Bladder CA, CKD, HTN, HLD and T2DM, Pt was noted for DKA--> insulin drip. A1C 8.4%, Cr 3.4, eGFR
13.61.
Pt sitting up in chair, pleasant, offers no complaints and able to discuss diabetes management.
CR 2.4, eGFR 20.68. 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 States she pays out of pocket for insulin at [facility]. Restarted 70/30 insulin with dinner 06/21 38 units BID with
moderate corrective.
06/21 glucose pre lunch 52, treated with juice, repeat glucose 106. Will reduce BID 70/30 to 30 units, first decreased dose pre dinner.
Provided Contour Next glucose monitor and instructed. Patient states she has tested in the past so is familiar. at bedside for instruction requesting CGM. Provided information for CGMS and process requiring primary care provider submit
office notes etc. Patient to follow up with primary.
Diabetes History
- -
Type of Diabetes: 2 requiring insulin
Pre-Admission Diabetes Regimen
06/21/24
05:39
Creatinine 2.4 H
Lab Results
Hemoglobin A1c 8.4 % (4.0-5.6) H 06/18/24 06:10
Insulin Pump Settings
IP Diabetes Regimen
06/20/24 06/20/24 06/20/24
08:01 11:48 17:14
Glucose
POC Glucose 158 H 165 H 176 H
06/20/24 06/21/24 06/21/24
21:26 05:39 07:39
Glucose 115 H
POC Glucose 194 H 94
Meal type: Dinner
Meal type: Breakfast
Amount consumed: 100%
Amount consumed: 25%
Patient Education
[2024-06-21] MEDS: HEPARIN 5000 UNITS SC ×4 (08:21→23:14)
[2024-06-21] MEDS: DESENEX/MITRAZOL/ZEASORB 1 APPLIC TOPICAL ×2 (08:21→20:30)
[2024-06-21] MEDS: TAMIFLU 30 MG PO (08:22)
[2024-06-21] MEDS: LOW STRENGTH ASPIRIN 81 MG PO (08:22)
[2024-06-21] MEDS: KCL 40 MEQ PO (08:22)
[2024-06-21] MEDS: NOVOLOG MIX 70/30 FLEXPEN 38 UNITS SC (08:23)
[2024-06-21] MEDS: NOVOLOG FLEXPEN-MODERATE RESISTANCE SC (08:50)
--- NOTE | 2024-06-21 08:54 | W.PN.HOSP.TC ---
Today's Communication/Plan
-
Continue IV antibiotic
Assessment / Plan
Assessment / Plan
Gen-AAOx3, NAD, obese
HEENT-NC, AT, anicteric, clear oral mm
Neck-supple
CV-reg, no M, +S1/S2
Lungs-clear B/L
Abd-soft, NT, ND
Ext-no edema
Musculoskeletal-no cyanosis, clubbing
Skin-warm and dry
Neuro-grossly non-focal
Psych-calm, cooperative
A/P:
Septic shock with bacteremia-improved. 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 Staghorn calculus status post right ureteral stent. Continue Wetzel per urology. Proteus mirabilis blood cultures on 06/17.
Blood cultures clear on 06/19. On IV ampicillin. WBC trending down 28.6-->11. PT OT eval.
Hypokalemia-replete and trend
Bradycardia-transient sinus bradycardia likely hypokalemia contributing. Twelve-lead EKG normal sinus rhythm unremarkable at this morning.
Acute influenza B infection -continue Tamiflu at renal doses.
Acute metabolic encephalopathy -likely due to septic shock, KRISTEN, critical illness. CT head without acute disease. Mental status improved.
KRISTEN -likely due to septic shock, volume depletion. Creatinine today 2.4 (peak creatinine 4.2). Continue IV fluids. Nephrology following
DM2 with significant hyperglycemia. No DKA -back on home doses insulin 70/30 38 units twice daily. Monitor blood sugars
Elevated LFTs -ischemia from shock-continue to trend.
Type II TN-continue current medications and ischemic evaluation as outpatient per cardiology.
Thrombocytopenia -sepsis related-improving platelets 64K today
Acute nontraumatic rhabdomyolysis -normalized
Left adnexal mass -outpatient follow-up.
Essential hypertension -continue hold home medications due to KRISTEN. Start amlodipine 5 mg daily
Hyperlipidemia -on atorvastatin, hold for now given elevated LFTs.
History of bladder cancer -treated with tumor resection, intravesicular chemotherapy.
History of right hemicolectomy -done for spontaneous perforation of the colon according to family.
Obesity due to excess calories
Full code
Anticipated Discharge: 24 - 48 hours
Subjective/Interval History
-
Date of Service: June 21, 2024
Patient denies any new complaints. No chest pain or shortness of breath. Afebrile
Objective Data
-
Labs:
Laboratory Results
06/21/24
05:39
WBC 11.0 H
Hgb 11.8 L
Hct 33.0 L
Plt Count 64 L
Sodium 143
Potassium 3.0 L
Chloride 105
Carbon Dioxide 30
BUN 63 H
Creatinine 2.4 H
Glucose 115 H
Calcium 9.8
Vital Signs:
Vital Signs
Temp Pulse Resp BP Pulse Ox
97.7 F 70 18 134/75 94
06/21/24 03:04 06/21/24 03:04 06/21/24 03:04 06/21/24 03:04 06/21/24 03:04
I&O
06/20/24 06/21/24 06/22/24
06:59 06:59 06:59
Intake Total 2764.2 / 2864.2 1310 / 1310
Output Total 2325 / 2325 1750 / 1750
Balance 439.2 / 539.2 -440 / -440
--- NOTE | 2024-06-21 10:36 | W.PN.NEPH.PH ---
Today's Communication / Plan
-
follow BMP
Assessment/Plan
-
Impression:
Acute kidney injury
Chronic kidney disease with unknown baseline
acute metabolic encephalopathy/Hyperglycemia
Anion gap metabolic acidosis of 26
Sepsis with suspected underlying uroseptic source:Proteus
Right sided kidney staghorn calculus with associated pyelonephritis
Left renal atrophy
History of hypertension
History of dyslipidemia
History of bladder cancer status post tumor resection
Diabetes
Non-ST elevation [place]
Influenza positive
Thrombocytopenia
Elevated CPK
Plan:
additional K later
follow BMP
continue IV abx
no IVF needed
seth per urology
-
-
Date of Service: June 21, 2024
CC / HPI / ROS
-
Chief Complaint:
KRISTEN with CKD
History of Present Illness:
cr improving to 2.4, non oliguric with seth
BP stable
no fever, bicarb at 30
LFTs improving
on IV abx for sepsis
K low 3.0
Review of Systems:
no cp or sob
Labs
-
Labs:
WBC 11.0 10^3/uL (4.8-10.8) H 06/21/24 05:39
RBC 3.70 10^6/uL (4.20-5.40) L 06/21/24 05:39
Hgb 11.8 g/dL (12.0-16.0) L 06/21/24 05:39
Hct 33.0 % (37.0-47.0) L 06/21/24 05:39
Plt Count 64 10^3/uL (130-400) L 06/21/24 05:39
Sodium 143 mmol/L (135-145) 06/21/24 05:39
Potassium 3.0 mmol/L (3.5-5.1) L 06/21/24 05:39
Chloride 105 mmol/L (98-107) 06/21/24 05:39
Carbon Dioxide 30 mmol/L (22-30) 06/21/24 05:39
BUN 63 mg/dl (7-17) H 06/21/24 05:39
Creatinine 2.4 mg/dL (0.6-1.0) H 06/21/24 05:39
eGFR 20.68 06/21/24 05:39
Glucose 115 mg/dl (70-99) H 06/21/24 05:39
Calcium 9.8 mg/dl (8.4-10.2) 06/21/24 05:39
Phosphorus 3.7 mg/dl (2.5-4.5) 06/21/24 05:39
Albumin 2.6 g/dl (3.5-5.0) L 06/20/24 03:32
Physical Exam
-
Vital Signs:
Vital Signs
Temp Pulse Resp BP Pulse Ox
97.7 F 74 16 140/75 93
06/21/24 07:10 06/21/24 07:10 06/21/24 07:10 06/21/24 07:10 06/21/24 07:10
Cardiovascular:: Regular rate and rhythm
Respiratory:: Bilateral: CTA
Lung Excursion:: Normal
Abdomen:: Nontender and Soft
Bowel Sounds:: Normal
Extremity Edema:: None: Bilateral:
[2024-06-21 11:30] VITALS: BP 161/86
[2024-06-21 12:03] LABS: Glucose - Point of Care 52 mg/dl (70-99)
[2024-06-21] MEDS: NOVOLOG FLEXPEN-LOW RESISTANCE SC ×2 (12:09→16:38)
[2024-06-21 12:27] LABS: Glucose - Point of Care 106 mg/dl (70-99)
--- NOTE | 2024-06-21 13:04 | W.PN.ID1 ---
Date of Service
Date of Service: June 21, 2024
Today's Communication
Continue antibiotics.
Assessment / Plan
Right pyelonephritis
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
Obstructive uropathy
- S/p right ureteral stent placement
Marked leukocytosis; improving
Proteus bacteremia
Influenza B positive; Patient asymptomatic
Right staghorn calculi
KRISTEN on CKD
DM type II; uncontrolled. A1c = 8.4
Lactic acidosis
Transaminitis
Elevated troponin
Rhabdomyolysis
HTN
Dyslipidemia
Hx bladder CA
Recommendations:
Continue antibiotics. Proteus mirabilis sensitivities reviewed. Continue with ampicillin. May be able to transition to oral therapy in the next 24 to 48 hours.
Although asymptomatic, Tamiflu initiated given recovery of Influenza B; completing a 5-day course today.
Repeat blood cultures no growth to date.
Follow white count / temperature curve.
Continue with supportive measures.
����������������������������������������������������������
Chief Complaint
-: Leukocytosis and Bacteremia
Subjective / Review of Systems
Review of Systems: No Fever and No Chills
Vital Signs / Physical Exam
Vital Signs
Vital Signs
Temp Pulse Resp BP Pulse Ox
97.8 F 76 18 161/86 96
06/21/24 11:30 06/21/24 11:30 06/21/24 11:30 06/21/24 11:30 06/21/24 11:30
Physical Exam
Constitutional: No Acute Distress, Comfortable and Non-toxic
Head: Normocephalic
Eyes: No Conjunctival Hemorrhage and Sclera Anicteric
Cardiovascular: S1/S2; Negative S3/S4
Pulmonary: Non Labored; Negative Wheezes or Rales
Gastrointestinal: Soft and Non Tender
Genito-Urinary: Wetzel and Turbid Urine (Slight); Negative Hematuria
Extremities: Negative Edema, Cyanosis or Erythema
Psychological: Calm
Objective Data
Lab Data
Lab Results
06/21/24 05:39
06/21/24 05:39
PT 15.5 Sec (11.4-14.6) H 06/18/24 08:37
INR 1.25 06/18/24 08:37
APTT 42.3 Sec (23.4-35.0) H 06/18/24 08:37
Estimated Creat Clear 23 ml/min 06/21/24 05:39
Lactic Acid 1.9 mmol/L (0.7-2.0) 06/19/24 04:57
Total Bilirubin 2.8 mg/dl (0.2-1.3) H 06/20/24 03:32
GGT 859 U/L (12-43) H 06/17/24 16:35
AST 102 U/L (14-36) H 06/20/24 03:32
ALT 173 U/L (0-35) H 06/20/24 03:32
Alkaline Phosphatase 209 U/L (38-126) H 06/20/24 03:32
Most recent labs reviewed.
Micro Results:
06/17/24 16:50 Blood Culture - Final
Blood/Venous Proteus mirabilis
Gram Stain - Final
06/19/24 06:02 Blood Culture - Preliminary
Blood/Venous No Growth in 48 hours- Final report to follow
06/19/24 04:57 Blood Culture - Preliminary
Blood/Venous No Growth in 48 hours- Final report to follow
06/17/24 16:51 Urine Culture - Final
Urine
06/17/24 16:49 Blood Culture - Preliminary
Blood/Venous Proteus mirabilis
Gram Stain - Preliminary
06/17/24 16:40 Influenza Types A & B (AKSHAT) - Final
Nasal Swab Influenza B Positive, NAAT
Imaging:
06/17/2024 CT chest/abdomen/pelvis: There is a staghorn calculus within the right calyces, and extending into the right renal pelvis. There are small foci of air within the right renal pelvis adjacent to the calculus. No areas seen within the renal
parenchyma or findings to suggest emphysematous pyelonephritis. There is moderate diffuse atrophy of the left kidney, and no evidence for air within the left collecting system. No air identified within the bladder. Patient is status post
cholecystectomy. No evidence for biliary ductal dilatation. Please see full dictation for additional detail. Film personally viewed.
--- NOTE | 2024-06-21 14:01 | CM ---
Reviewed the chart notes and spoke with the patient at the bedside. Discussed with the patient her PCP. Per patient, her PCP retired and she currently is without one. Discussed with the patient that [facility] would not be able to follow her at home due
to needing a doctor who would be able to provide orders. Patient understood and is looking into a doctor who is down the street from her home. CM continues to be available to patient/family and is monitoring medical plan for needs at discharge.
Plan: Discharge to home when medically stable.
[2024-06-21 14:45] VITALS: BP 150/69
[2024-06-21] MEDS: NORVASC 5 MG PO (14:47)
[2024-06-21 16:35] LABS: Glucose - Point of Care 120 mg/dl (70-99)
[2024-06-21] MEDS: NOVOLOG MIX 70/30 FLEXPEN 30 UNITS SC (17:08)
[2024-06-21] MEDS: KCL 20 MEQ PO (21:36)
[2024-06-21 21:58] LABS: Glucose - Point of Care 120 mg/dl (70-99)
[2024-06-21 23:16] VITALS: BP 147/72
[2024-06-22] MEDS: AMPICILLIN 108 MG IV ×2 (01:56→14:42)
[2024-06-22] MEDS: DILAUDID 0.5 MG IV ×3 (02:27→18:30)
[2024-06-22 03:23] VITALS: BP 102/66
--- NOTE | 2024-06-22 07:33 | PN.DE.MGMTRT ---
Insulin Management
- -
06/22/2024: Diabetes Management Consult Follow up:
Patient presented from home with confusion, nausea, right-sided hip/back pain and weakness due to septic shock in setting of Pyelonephritis with PMH: Bladder CA, CKD, HTN, HLD and T2DM, Pt was noted for DKA--> insulin drip. A1C 8.4%, Cr 3.4, eGFR
13.61.
Pt sitting up in chair, pleasant, offers no complaints and able to discuss diabetes management.
CR 2.4, eGFR 20.68. 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 States she pays out of pocket for insulin at [facility]. Restarted 70/30 insulin with dinner 06/21 38 units BID with
moderate corrective.
06/21 glucose pre lunch 52, treated with juice, repeat glucose 106. Will reduce BID 70/30 to 30 units, first decreased dose pre dinner. Pre dinner glucose 120, reduced dose 70/30, 30 units given, HS glucose 120. Fasting glucose
Will continue 70/30 novolog 30 units BID.
Provided Contour Next glucose monitor and instructed. Patient states she has tested in the past so is familiar. at bedside for instruction requesting CGM. Provided information for CGMS and process requiring primary care provider submit
office notes etc. Patient to follow up with primary.
Diabetes History
- -
Type of Diabetes: 2
Pre-Admission Diabetes Regimen
Lab Results
Hemoglobin A1c 8.4 % (4.0-5.6) H 06/18/24 06:10
Insulin Pump Settings
IP Diabetes Regimen
06/21/24 06/21/24 06/21/24
07:39 12:01 12:24
POC Glucose 94 52 L* 106 H
06/21/24 06/21/24
16:33 21:56
POC Glucose 120 H 120 H
Meal type: Lunch
Meal type: Breakfast
Amount consumed: 95%
Amount consumed: 95%
Patient Education
[2024-06-22 08:08] VITALS: BP 143/71
[2024-06-22 08:19] LABS: Glucose - Point of Care 86 mg/dl (70-99)
[2024-06-22] MEDS: NOVOLOG FLEXPEN-LOW RESISTANCE SC (08:22)
--- NOTE | 2024-06-22 08:42 | W.PN.HOSP.TC ---
Today's Communication/Plan
-
IV antibiotics. Tamiflu. Decrease insulin. Wetzel catheter
Assessment / Plan
Assessment / Plan
Gen-AAOx3, NAD, obese
HEENT-NC, AT, anicteric, clear oral mm
Neck-supple
CV-reg, no M, +S1/S2
Lungs-clear B/L
Abd-soft, NT, ND
Ext-no edema
Musculoskeletal-no cyanosis, clubbing
Skin-warm and dry
Neuro-grossly non-focal
Psych-calm, cooperative
A/P:
Septic shock with bacteremia-improved. 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 Staghorn calculus status post right ureteral stent. Continue Wetzel per urology and probably removal tomorrow. Proteus
mirabilis blood cultures on 06/17. Blood cultures clear on 06/19. On IV ampicillin. WBC trending down 28.6-->11 yesterday, pending today. PT OT eval.
KRISTEN -likely due to septic shock, volume depletion. Creatinine today 2.1 (peak creatinine 4.2). Continue IV fluids. Nephrology following
DM2 with significant hyperglycemia. No DKA -back on home doses insulin 70/30 38 down to 25 units twice daily due to recent hypoglycemia. Monitor blood sugars
Acute influenza B infection -continue Tamiflu at renal doses to finish course today.
Hypokalemia-resolved
Bradycardia-resolved. Transient sinus bradycardia likely hypokalemia contributing. Twelve-lead EKG normal sinus rhythm unremarkable at this morning.
Acute metabolic encephalopathy -likely due to septic shock, KRISTEN, critical illness. CT head without acute disease. Mental status improved.
Elevated LFTs -ischemia from shock-trending down appropriately. Will trend every so often now.
Type II [place]-continue current medications and ischemic evaluation as outpatient per cardiology.
Thrombocytopenia -sepsis related-improving platelets 64K yesterday, pending today.
Acute nontraumatic rhabdomyolysis -normalized
Left adnexal mass -outpatient follow-up.
Essential hypertension -continue hold home medications due to KRISTEN. Continue amlodipine 5 mg daily
Hyperlipidemia -on atorvastatin, hold for now given elevated LFTs.
History of bladder cancer -treated with tumor resection, intravesicular chemotherapy.
History of right hemicolectomy -done for spontaneous perforation of the colon according to family.
Obesity due to excess calories
Full code
Anticipated Discharge: 24 - 48 hours
Subjective/Interval History
-
Date of Service: June 22, 2024
Patient feels better overall. No chest pain or shortness of breath. Afebrile
Objective Data
-
Labs:
Laboratory Results
06/22/24 06/22/24
06:00 08:20
WBC Pending
Hgb Pending
Hct Pending
Plt Count Pending
Sodium Pending
Potassium Pending
Chloride Pending
Carbon Dioxide Pending
BUN Pending
Creatinine Pending
Glucose Pending
Calcium Pending
Total Bilirubin Pending
AST Pending
ALT Pending
Alkaline Phosphatase Pending
Vital Signs:
Vital Signs
Temp Pulse Resp BP Pulse Ox
98.2 F 82 16 143/71 95
06/22/24 08:08 06/22/24 08:08 06/22/24 08:08 06/22/24 08:08 06/22/24 08:08
I&O
06/21/24 06/22/24 06/23/24
06:59 06:59 06:59
Intake Total 1310 / 1310 1200 / 1200
Output Total 1750 / 1750 900 / 900
Balance -440 / -440 300 / 300
[2024-06-22] MEDS: NOVOLOG MIX 70/30 FLEXPEN SC (08:54)
--- NOTE | 2024-06-22 08:58 | W.PN.URO.CBU ---
Today's Communication / Plan
-
Will remove Wetzel tomorrow
Outpatient stone surgery to be arranged
Will need continued surveillance for her history of superficial bladder cancer
Assessment / Plan
-
Urosepsis: Proteus mirabilis bacteremia
Right staghorn stone
Gas in right renal pelvis
KRISTEN: resolving
---
History of superficial bladder cancer manage at [facility]
Diagnosis
-
Date of Service: June 22, 2024
-
Patient Diagnosis:
Probable urosepsis/complicated UTI
Proteus mirabilis bacteremia
Right staghorn stone with gas in renal pelvis. No evidence of gas in renal parenchyma
KRISTEN: improving
---
History of Type 2 DM
---
Patient was advised regarding the need for urgent intervention to attempt to decompress/drain the right renal collecting system, including risks of surgery and anesthesia, most notably the potential for worsening symptoms of sepsis and gross
hematuria along with potential right ureteral injury
She has provided written and verbal consent
---
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
Subjective
-
Feeling stronger daily
No catheter bother
Objective
-
Vital Signs
Temp Pulse Resp BP Pulse Ox
98.2 F 82 16 143/71 95
06/22/24 08:08 06/22/24 08:08 06/22/24 08:08 06/22/24 08:08 06/22/24 08:08
Intake and Output
06/21/24 06/22/24 06/23/24
06:59 06:59 06:59
Intake Total 1310 / 1310 1200 / 1200
Output Total 1750 / 1750 900 / 900
Balance -440 / -440 300 / 300
Intake:
Oral fluids 960 / 960 1200 / 1200
IV fluids (Total) 300 / 300
Sterile Water For Injection 300 / 300
1000 ml 1,000 ml @ 100 mls/hr
IV .[id number] ROSARIO with Sodium
Bicarbonate 150 Meq Rx#:
[id number]
IV piggybacks 50 / 50
Output:
Urine, Wetzel 1050 / 1050 900 / 900
Urine, Voided 700 / 700
Review of Systems
-
Constitutional: Fatigue
Respiratory: No Symptoms
Cardiac: No Symptoms
Abdomen/GI: Nausea
Neurological: No Symptoms
Physical Exam
-
General - well nourished, no acute distress
Abdomen - soft, non-tender, no CVAT
Genitalia - normal with Wetzel draining clear urine
Counseling
-
Wetzel out tomorrow
[2024-06-22] MEDS: TAMIFLU 30 MG PO (09:00)
[2024-06-22] MEDS: LOW STRENGTH ASPIRIN 81 MG PO (09:00)
[2024-06-22] MEDS: HEPARIN 5000 UNITS SC ×2 (09:00→17:01)
[2024-06-22] MEDS: NORVASC 5 MG PO (09:00)
[2024-06-22] MEDS: DESENEX/MITRAZOL/ZEASORB 1 APPLIC TOPICAL ×2 (09:06→21:05)
[2024-06-22 09:11] LABS: ALT (SGPT) 110 U/L (0-35); AST (SGOT) 60 U/L (14-36); Albumin 3.2 g/dl (3.5-5.0); Alkaline Phosphatase 384 U/L (38-126); Blood Urea Nitrogen 61 mg/dl (7-17); Calcium 10.4 mg/dl (8.4-10.2); Carbon Dioxide 24 mmol/L (22-30); Chloride 105 mmol/L (98-107); Direct Bilirubin 0.7 mg/dl (0.0-0.4); Estimated Creatinine Clearance 27 ml/min; Glucose 84 mg/dl (70-99); Magnesium 2.1 mg/dl (1.6-2.3); Potassium 3.6 mmol/L (3.5-5.1); Sodium 143 mmol/L (135-145); Total Bilirubin 1.9 mg/dl (0.2-1.3); Total Protein 5.8 g/dl (6.3-8.2); eGFR 24.27
[2024-06-22 11:24] VITALS: BP 138/71
--- NOTE | 2024-06-22 11:26 | W.PN.NEPH.PH ---
Today's Communication / Plan
-
lasix
Assessment/Plan
-
Impression:
Acute kidney injury
Chronic kidney disease with unknown baseline
acute metabolic encephalopathy/Hyperglycemia
Anion gap metabolic acidosis of 26
Sepsis with suspected underlying uroseptic source:Proteus
Right sided kidney staghorn calculus with associated pyelonephritis
Left renal atrophy
History of hypertension
History of dyslipidemia
History of bladder cancer status post tumor resection
Diabetes
Non-ST elevation [place]
Influenza positive
Thrombocytopenia
Elevated CPK
Plan:
lasix today
follow BMP
continue IV abx
seth per urology
-
-
Date of Service: June 22, 2024
CC / HPI / ROS
-
Chief Complaint:
KRISTEN with CKD
History of Present Illness:
cr improving to 2.1, non oliguric with seth
BP stable
no fever, bicarb at 24
LFTs improving slowly
on IV abx for sepsis
K improved
Review of Systems:
no cp or sob
Labs
-
Labs:
Sodium 143 mmol/L (135-145) 06/22/24 08:20
Potassium 3.6 mmol/L (3.5-5.1) 06/22/24 08:20
Chloride 105 mmol/L (98-107) 06/22/24 08:20
Carbon Dioxide 24 mmol/L (22-30) 06/22/24 08:20
BUN 61 mg/dl (7-17) H 06/22/24 08:20
Creatinine 2.1 mg/dL (0.6-1.0) H 06/22/24 08:20
eGFR 24.27 06/22/24 08:20
Glucose 84 mg/dl (70-99) 06/22/24 08:20
Calcium 10.4 mg/dl (8.4-10.2) H 06/22/24 08:20
Phosphorus 3.7 mg/dl (2.5-4.5) 06/21/24 05:39
Albumin 3.2 g/dl (3.5-5.0) L 06/22/24 08:20
Physical Exam
-
Vital Signs:
Vital Signs
Temp Pulse Resp BP Pulse Ox
98.3 F 80 12 138/71 95
06/22/24 11:24 06/22/24 11:24 06/22/24 11:24 06/22/24 11:24 06/22/24 11:24
Cardiovascular:: Regular rate and rhythm
Respiratory:: Bilateral: Coarse
Lung Excursion:: Normal
Abdomen:: Nontender and Soft
Bowel Sounds:: Normal
Extremity Edema:: +1: Bilateral:
--- NOTE | 2024-06-22 11:41 | W.PN.ID1 ---
Date of Service
Date of Service: June 22, 2024
Today's Communication
Continue antibiotics.
Assessment / Plan
Right pyelonephritis
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
Obstructive uropathy
- S/p right ureteral stent placement
Marked leukocytosis; improving
Proteus bacteremia
Influenza B positive
- Patient asymptomatic
- Completed 5 day course of tamiflu
Right staghorn calculi
KRISTEN on CKD
DM type II; uncontrolled. A1c = 8.4
Lactic acidosis
Transaminitis
Elevated troponin
Rhabdomyolysis
HTN
Dyslipidemia
Hx bladder CA
Recommendations:
Continue antibiotics. Proteus mirabilis sensitivities reviewed. Continue with ampicillin for today.
May be able to transition to oral therapy in the next 24 hours.
Repeat blood cultures no growth to date.
Follow white count / temperature curve.
Continue with supportive measures.
����������������������������������������������������������
Chief Complaint
-: Leukocytosis and Bacteremia
Subjective / Review of Systems
Review of Systems: No Fever, No Chills and No Abdominal Pain
Vital Signs / Physical Exam
Vital Signs
Vital Signs
Temp Pulse Resp BP Pulse Ox
98.3 F 80 12 138/71 95
06/22/24 11:24 06/22/24 11:24 06/22/24 11:24 06/22/24 11:24 06/22/24 11:24
Physical Exam
Constitutional: No Acute Distress, Comfortable and Non-toxic
Head: Normocephalic
Eyes: No Conjunctival Hemorrhage and Sclera Anicteric
Cardiovascular: S1/S2; Negative S3/S4
Pulmonary: Non Labored; Negative Wheezes or Rales
Gastrointestinal: Soft and Non Tender
Genito-Urinary: Wetzel and Turbid Urine (Slight); Negative Hematuria
Extremities: Negative Edema, Cyanosis or Erythema
Neurological: Awake, Alert and Oriented
Psychological: Calm
Objective Data
Lab Data
Lab Results
06/22/24 08:20
PT 15.5 Sec (11.4-14.6) H 06/18/24 08:37
INR 1.25 06/18/24 08:37
APTT 42.3 Sec (23.4-35.0) H 06/18/24 08:37
Estimated Creat Clear 27 ml/min 06/22/24 08:20
Lactic Acid 1.9 mmol/L (0.7-2.0) 06/19/24 04:57
Total Bilirubin 1.9 mg/dl (0.2-1.3) H 06/22/24 08:20
GGT 859 U/L (12-43) H 06/17/24 16:35
AST 60 U/L (14-36) H 06/22/24 08:20
ALT 110 U/L (0-35) H 06/22/24 08:20
Alkaline Phosphatase 384 U/L (38-126) H 06/22/24 08:20
Most recent labs reviewed.
Micro Results:
06/19/24 06:02 Blood Culture - Preliminary
Blood/Venous No Growth in 72 hours- Final report to follow
06/19/24 04:57 Blood Culture - Preliminary
Blood/Venous No Growth in 72 hours- Final report to follow
06/17/24 16:50 Blood Culture - Final
Blood/Venous Proteus mirabilis
Gram Stain - Final
06/17/24 16:51 Urine Culture - Final
Urine
06/17/24 16:49 Blood Culture - Preliminary
Blood/Venous Proteus mirabilis
Gram Stain - Preliminary
06/17/24 16:40 Influenza Types A & B (AKSHAT) - Final
Nasal Swab Influenza B Positive, NAAT
Imaging:
06/17/2024 CT chest/abdomen/pelvis: There is a staghorn calculus within the right calyces, and extending into the right renal pelvis. There are small foci of air within the right renal pelvis adjacent to the calculus. No areas seen within the renal
parenchyma or findings to suggest emphysematous pyelonephritis. There is moderate diffuse atrophy of the left kidney, and no evidence for air within the left collecting system. No air identified within the bladder. Patient is status post
cholecystectomy. No evidence for biliary ductal dilatation. Please see full dictation for additional detail. Film personally viewed.
[2024-06-22 11:43] LABS: Glucose - Point of Care 162 mg/dl (70-99)
[2024-06-22] MEDS: NOVOLOG FLEXPEN-LOW RESISTANCE 1 UNITS SC (12:52)
[2024-06-22] MEDS: LASIX 20 MG IV (12:53)
[2024-06-22 13:45] LABS: Hematocrit 37.5 % (37.0-47.0); Hemoglobin 13.3 g/dL (12.0-16.0); Mean Corp Hgb Conc. 35.5 g/dL (33.0-37.0); Mean Corpuscular Volume 90.1 fL (81.0-99.0); Mean Platelet Volume 10.9 fL (7.4-10.4); Platelet Count 118 10^3/uL (130-400); Red Blood Cell Count 4.16 10^6/uL (4.20-5.40); Red Cell Dist. Width 14.6 % (11.5-14.5); White Blood Cell Count 9.5 10^3/uL (4.8-10.8)
[2024-06-22 15:29] VITALS: BP 135/72
--- NOTE | 2024-06-22 16:15 | CM ---
Reviewed the chart notes and spoke with the patient at the bedside. IMM signed and placed on the chart.
[2024-06-22 17:11] LABS: Glucose - Point of Care 201 mg/dl (70-99)
[2024-06-22] MEDS: NOVOLOG MIX 70/30 FLEXPEN 25 UNITS SC (17:13)
[2024-06-22] MEDS: NOVOLOG FLEXPEN-LOW RESISTANCE 2 UNITS SC (17:13)
[2024-06-22 19:21] VITALS: BP 132/69
[2024-06-22 22:38] LABS: Glucose - Point of Care 194 mg/dl (70-99)
[2024-06-22 23:18] VITALS: BP 152/77
[2024-06-23] VITALS (7 sets, daily range): BP systolic 138–156; BP diastolic 74–87; PULSE 90
[2024-06-23] MEDS: AMPICILLIN 108 MG IV ×2 (02:07→14:09)
[2024-06-23] MEDS: HEPARIN 5000 UNITS SC ×4 (02:07→23:50)
[2024-06-23 06:54] LABS: Hematocrit 33.5 % (37.0-47.0); Hemoglobin 11.7 g/dL (12.0-16.0); Mean Corp Hgb Conc. 34.9 g/dL (33.0-37.0); Mean Corpuscular Hgb 31.5 pg (27.0-31.0); Mean Corpuscular Volume 90.3 fL (81.0-99.0); Mean Platelet Volume 11.6 fL (7.4-10.4); Platelet Count 135 10^3/uL (130-400); Red Blood Cell Count 3.71 10^6/uL (4.20-5.40); Red Cell Dist. Width 14.6 % (11.5-14.5); White Blood Cell Count 7.8 10^3/uL (4.8-10.8)
[2024-06-23 07:07] LABS: Blood Urea Nitrogen 60 mg/dl (7-17); Calcium 9.8 mg/dl (8.4-10.2); Carbon Dioxide 28 mmol/L (22-30); Chloride 101 mmol/L (98-107); Estimated Creatinine Clearance 30 ml/min; Glucose 179 mg/dl (70-99); Potassium 3.2 mmol/L (3.5-5.1); Sodium 140 mmol/L (135-145); eGFR 27.37
--- NOTE | 2024-06-23 07:23 | PN.DE.MGMTRT ---
Insulin Management
- -
06/23/2024: Diabetes Management F/U:
Patient presented from home with confusion, nausea, right-sided hip/back pain and weakness due to septic shock in setting of Pyelonephritis with PMH: Bladder CA, CKD, HTN, HLD and T2DM, Pt was noted for DKA--> insulin drip. Reports she was taking
insulin 38 units BID of NovoLog mix 70/30 PRICER BAGGER but not monitoring her blood sugars. States she pays out of pocket for insulin at [facility]. A1C 8.4%, Cr 3.4, eGFR 13.61.
Pt awake, A/O x3, sitting up in chair, pleasant, offers no complaints, able to discuss diabetes mgt.
States she feels much better today than day she came into the hospital.
CR 2.4-->1.9, eGFR 20.68-->27.37 today. 06/21 restarted 70/30 insulin with dinner 38 units BID and moderate corrective with meals.
06/22 glucose pre breakfast was 86, AM dose held. Dr. Nick reduced insulin dose to 25 units. No episodes of hypoglycemia noted.
HS glucose was 194, FBG 179 this AM. Will continue 70/30 NovoLog 25 units BID.
06/21 Provided Contour Next glucose monitor and instructed. Patient states she has tested in the past so is familiar. at bedside for instruction requesting CGM. Provided information for CGMs and process requiring PCP to submit office notes
etc. Patient to follow up with primary.
Diabetes History
- -
Type of Diabetes: 2 requiring insulin
Pre-Admission Diabetes Regimen
06/22/24 06/23/24
08:20 05:45
Creatinine 2.1 H 1.9 H
Lab Results
Hemoglobin A1c 8.4 % (4.0-5.6) H 06/18/24 06:10
Insulin Pump Settings
IP Diabetes Regimen
06/22/24 06/22/24 06/22/24
08:18 08:20 11:42
Glucose 84
POC Glucose 86 162 H
06/22/24 06/22/24 06/23/24
17:10 22:31 05:45
Glucose 179 H
POC Glucose 201 H 194 H
Meal type: Dinner
Meal type: Breakfast
Amount consumed: 100%
Patient Education
[2024-06-23] MEDS: DILAUDID 0.5 MG IV ×2 (07:42→21:35)
[2024-06-23] MEDS: FLUSH (NSS) 2 FLUSH IV (07:43)
[2024-06-23 08:02] LABS: % Basophils 0.4 % (0-2); % Eosinophils 0.6 % (0-6); % Immature Granulocytes 7.7 % (0-0.5); % Lymphocytes 22.9 % (20.5-51.1); % Monocytes 11.1 % (1.7-9.3); % Neutrophils 57.3 % (42.2-75.2); Absolute Eosinophils 0.1 10^3/uL (0-0.7); Absolute Immature Granulocytes 0.6 10^3/uL (0-0.05); Absolute Lymphocytes 1.8 10^3/uL (1.2-3.4); Absolute Monocytes 0.9 10^3/uL (0.1-0.6); Absolute Neutrophils 4.4 10^3/uL (1.4-6.5); Nucleated Red Blood Cells % 0.3 %
[2024-06-23 08:27] LABS: Glucose - Point of Care 124 mg/dl (70-99)
[2024-06-23] MEDS: NOVOLOG FLEXPEN-LOW RESISTANCE SC (08:39)
[2024-06-23] MEDS: LOW STRENGTH ASPIRIN 81 MG PO (08:43)
[2024-06-23] MEDS: NORVASC 5 MG PO (08:43)
[2024-06-23] MEDS: DESENEX/MITRAZOL/ZEASORB 1 APPLIC TOPICAL ×2 (08:44→21:25)
[2024-06-23] MEDS: NOVOLOG MIX 70/30 FLEXPEN 25 UNITS SC ×2 (08:44→17:51)
--- NOTE | 2024-06-23 09:13 | W.PN.URO.CBU ---
Today's Communication / Plan
-
Remove Wetzel today
Assessment / Plan
-
Urosepsis: Proteus mirabilis bacteremia
Right staghorn stone
Gas in right renal pelvis
KRISTEN: resolving
---
History of superficial bladder cancer manage at [facility]
Diagnosis
-
Date of Service: June 23, 2024
-
Patient Diagnosis:
Probable urosepsis/complicated UTI
Proteus mirabilis bacteremia
Right staghorn stone with gas in renal pelvis. No evidence of gas in renal parenchyma
KRISTEN: improving
---
History of Type 2 DM
---
Patient was advised regarding the need for urgent intervention to attempt to decompress/drain the right renal collecting system, including risks of surgery and anesthesia, most notably the potential for worsening symptoms of sepsis and gross
hematuria along with potential right ureteral injury
She has provided written and verbal consent
---
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
Subjective
-
Fatigued, but feeling better
Objective
-
Vital Signs
Temp Pulse Resp BP Pulse Ox
97.4 F 82 18 138/83 94
06/23/24 03:12 06/23/24 08:43 06/23/24 03:12 06/23/24 08:43 06/23/24 03:12
Intake and Output
06/22/24 06/23/24 06/24/24
06:59 06:59 06:59
Intake Total 1200 / 1200 1000 / 1000
Output Total 900 / 900 2725 / 2725
Balance 300 / 300 -1725 / -1725
Intake:
Oral fluids 1200 / 1200 1000 / 1000
Output:
Urine, Wetzel 900 / 900 5 / 2724
Other:
Number of approximated MODERATE 1
amounts of urine
Laboratory Results
06/23/24 05:45
06/23/24 05:45
Review of Systems
-
Constitutional: Fatigue
Respiratory: No Symptoms
Cardiac: No Symptoms
Abdomen/GI: No Symptoms
Physical Exam
-
General - well nourished, no acute distress
Abdomen - soft, non-tender, no CVAT
Genitalia - normal with Wetzel draining clear urine
Counseling
-
Will follow up as outpatient to discuss stone management and bladder cancer surveillance
--- NOTE | 2024-06-23 09:36 | W.PN.HOSP.TC ---
Today's Communication/Plan
-
IV antibiotics. Lasix.
Assessment / Plan
Assessment / Plan
Gen-AAOx3, NAD, obese
HEENT-NC, AT, anicteric, clear oral mm
Neck-supple
CV-reg, no M, +S1/S2
Lungs-clear B/L
Abd-soft, NT, ND
Ext-no edema
Musculoskeletal-no cyanosis, clubbing
Skin-warm and dry
Neuro-grossly non-focal
Psych-calm, cooperative
A/P:
Septic shock with bacteremia-improved. 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 Staghorn calculus status post right ureteral stent. Removal of Wetzel per urology today. Proteus mirabilis blood cultures on
06/17. Blood cultures clear on 06/19. On IV ampicillin likely changing to oral today by ID. WBC trending down 28.6-->7.8 today. PT OT recommends home health.
KRISTEN -likely due to septic shock, volume depletion. Creatinine today 1.9 (peak creatinine 4.2). Initially on IV fluids but has received IV Lasix over the last couple of days. Nephrology following.
DM2 with significant hyperglycemia adn hypoglycemia. No DKA -on insulin 70/30 25 units twice daily. Monitor blood sugars
Anemia-hemoglobin 11.7 today. It has remained stable.
Acute influenza B infection -completed course of Tamiflu.
Hypokalemia-replete and trend
Bradycardia-resolved. Transient sinus bradycardia likely hypokalemia contributing. Twelve-lead EKG normal sinus rhythm unremarkable at this morning.
Acute metabolic encephalopathy -likely due to septic shock, KRISTEN, critical illness. CT head without acute disease. Mental status improved.
Elevated LFTs -ischemia from shock-trending down appropriately. Will trend every so often now.
Type II [place]-continue current medications and ischemic evaluation as outpatient per cardiology.
Thrombocytopenia -sepsis related-improved back to normal 135 today.
Acute nontraumatic rhabdomyolysis -normalized
Left adnexal mass -outpatient follow-up.
Essential hypertension -continue hold home medications due to KRISTEN. Continue amlodipine 5 mg daily
Hyperlipidemia -on atorvastatin, hold for now given elevated LFTs.
History of bladder cancer -treated with tumor resection, intravesicular chemotherapy.
History of right hemicolectomy -done for spontaneous perforation of the colon according to family.
Obesity due to excess calories
Full code
Anticipated Discharge: Within 24 hours
Subjective/Interval History
-
Date of Service: June 23, 2024
Patient denies any new complaints. No abdominal pain nausea vomiting. Afebrile
Objective Data
-
Labs:
Laboratory Results
06/23/24
05:45
WBC 7.8
Hgb 11.7 L
Hct 33.5 L
Plt Count 135
Sodium 140
Potassium 3.2 L
Chloride 101
Carbon Dioxide 28
BUN 60 H
Creatinine 1.9 H
Glucose 179 H
Calcium 9.8
Vital Signs:
Vital Signs
Temp Pulse Resp BP Pulse Ox
97.9 F 82 18 138/83 93
06/23/24 07:25 06/23/24 08:43 06/23/24 07:25 06/23/24 08:43 06/23/24 07:25
I&O
06/22/24 06/23/24 06/24/24
06:59 06:59 06:59
Intake Total 1200 / 1200 1000 / 1000
Output Total 900 / 900 2725 / 2725
Balance 300 / 300 -1725 / -1725
[2024-06-23] MEDS: KCL 40 MEQ PO (09:55)
--- NOTE | 2024-06-23 10:35 | CM ---
Reviewed the chart notes. Wetzel to be removed today. CM continues to be available to patient/family and is monitoring medical plan for needs at discharge.
Plan: Discharge to home when medically stable. No needs anticipated. Patient does not have a PCP to follow for VN services.
--- NOTE | 2024-06-23 10:41 | W.PN.NEPH.PH ---
Today's Communication / Plan
-
lasix and replace k
Assessment/Plan
-
Impression:
Acute kidney injury
Chronic kidney disease with unknown baseline
acute metabolic encephalopathy/Hyperglycemia
Anion gap metabolic acidosis of 26
Sepsis with suspected underlying uroseptic source:Proteus
Right sided kidney staghorn calculus with associated pyelonephritis
Left renal atrophy
History of hypertension
History of dyslipidemia
History of bladder cancer status post tumor resection
Diabetes
Non-ST elevation [place]
Influenza positive
Thrombocytopenia
Elevated CPK
Plan:
lasix today again for edema, replace k
cr cont to improve, no basleine known
follow BMP
continue IV abx
VT per urology
-
-
Date of Service: June 23, 2024
CC / HPI / ROS
-
Chief Complaint:
KRISTEN with CKD
History of Present Illness:
cr improving to 1.9, non oliguric with seth
BP stable
no fever, bicarb at 28
LFTs improving slowly
on IV abx for sepsis
k low 3.2
Review of Systems:
no cp or sob
no n/v
Labs
-
Labs:
WBC 7.8 10^3/uL (4.8-10.8) 06/23/24 05:45
RBC 3.71 10^6/uL (4.20-5.40) L 06/23/24 05:45
Hgb 11.7 g/dL (12.0-16.0) L 06/23/24 05:45
Hct 33.5 % (37.0-47.0) L 06/23/24 05:45
Plt Count 135 10^3/uL (130-400) 06/23/24 05:45
Sodium 140 mmol/L (135-145) 06/23/24 05:45
Potassium 3.2 mmol/L (3.5-5.1) L 06/23/24 05:45
Chloride 101 mmol/L (98-107) 06/23/24 05:45
Carbon Dioxide 28 mmol/L (22-30) 06/23/24 05:45
BUN 60 mg/dl (7-17) H 06/23/24 05:45
Creatinine 1.9 mg/dL (0.6-1.0) H 06/23/24 05:45
eGFR 27.37 06/23/24 05:45
Glucose 179 mg/dl (70-99) H 06/23/24 05:45
Calcium 9.8 mg/dl (8.4-10.2) 06/23/24 05:45
Phosphorus 3.7 mg/dl (2.5-4.5) 06/21/24 05:39
Albumin 3.2 g/dl (3.5-5.0) L 06/22/24 08:20
Physical Exam
-
Vital Signs:
Vital Signs
Temp Pulse Resp BP Pulse Ox
97.9 F 82 18 138/83 93
06/23/24 07:25 06/23/24 08:43 06/23/24 07:25 06/23/24 08:43 06/23/24 07:25
Cardiovascular:: Regular rate and rhythm
Respiratory:: Bilateral: CTA
Lung Excursion:: Normal
Abdomen:: Nontender and Soft
Extremity Edema:: +1: Bilateral:
Seth Catheter: No
[2024-06-23] MEDS: LASIX 20 MG PO (11:00)
[2024-06-23 12:17] LABS: Glucose - Point of Care 205 mg/dl (70-99)
[2024-06-23] MEDS: NOVOLOG FLEXPEN-LOW RESISTANCE 2 UNITS SC ×2 (12:27→17:51)
--- NOTE | 2024-06-23 15:28 | W.PN.ID1 ---
Date of Service
Date of Service: June 23, 2024
Today's Communication
switched to amoxicillin to complete 14 day course 06/17-06/30
Assessment / Plan
Right pyelonephritis
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
Obstructive uropathy
- S/p right ureteral stent placement
Marked leukocytosis; improving
Proteus bacteremia
Right staghorn calculi
KRISTEN on CKD -improving
DM type II; uncontrolled. A1c = 8.4
Lactic acidosis
Transaminitis
Elevated troponin
Rhabdomyolysis
HTN
Dyslipidemia
Hx bladder CA
Recommendations:
switched to amoxicillin to complete 14 day course 06/17-06/30
Repeat blood cultures no growth to date.
Follow white count / temperature curve.
Follow up with pcp
����������������������������������������������������������
Chief Complaint
-: Leukocytosis and Bacteremia
Subjective / Review of Systems
afebrile
bp stable
cr improved
Vital Signs / Physical Exam
Vital Signs
Vital Signs
Temp Pulse Resp BP Pulse Ox
97.9 F 81 18 140/87 95
06/23/24 11:35 06/23/24 11:35 06/23/24 11:35 06/23/24 11:35 06/23/24 11:35
Physical Exam
Constitutional: No Acute Distress
Cardiovascular: Regular Rate
Pulmonary: Symmetric and Non Labored
Gastrointestinal: Non Distended
Skin: Dry; Negative Rash or Jaundice
Neurological: Awake
Objective Data
Lab Data
Lab Results
06/23/24 05:45
06/23/24 05:45
PT 15.5 Sec (11.4-14.6) H 06/18/24 08:37
INR 1.25 06/18/24 08:37
APTT 42.3 Sec (23.4-35.0) H 06/18/24 08:37
Estimated Creat Clear 30 ml/min 06/23/24 05:45
Lactic Acid 1.9 mmol/L (0.7-2.0) 06/19/24 04:57
Total Bilirubin 1.9 mg/dl (0.2-1.3) H 06/22/24 08:20
GGT 859 U/L (12-43) H 06/17/24 16:35
AST 60 U/L (14-36) H 06/22/24 08:20
ALT 110 U/L (0-35) H 06/22/24 08:20
Alkaline Phosphatase 384 U/L (38-126) H 06/22/24 08:20
Blood Culture Final 06/21/24-1014
Positive for Proteus species by [employer]
Acid Methodology.
Proteus mirabilis
Organism 1 Proteus mirabilis
1. Proteus mirabilis
M.I.C. RX
--------- ---
Amoxicillin/Potas. Clavulanate <=8/4 S
Ampicillin <=8 S
Ampicillin/Sulbactam <=4/2 S
Aztreonam <=4 S
Cefazolin <=2 S
Ertapenem <=0.5 S
Ciprofloxacin <=0.25 S
Gentamicin <=2 S
Meropenem <=1 S
Piperacillin/Tazobactam <=8 S
Tetracycline >8 R
Tobramycin <=2 S
Trimethoprim/Sulfamethoxazole <=2/38 S
Most recent labs reviewed.
Micro Results:
06/19/24 06:02 Blood Culture - Preliminary
Blood/Venous No Growth in 4 days- Final report to follow
06/19/24 04:57 Blood Culture - Preliminary
Blood/Venous No Growth in 4 days- Final report to follow
06/17/24 16:50 Blood Culture - Final
Blood/Venous Proteus mirabilis
Gram Stain - Final
06/17/24 16:51 Urine Culture - Final
Urine
06/17/24 16:49 Blood Culture - Preliminary
Blood/Venous Proteus mirabilis
Gram Stain - Preliminary
06/17/24 16:40 Influenza Types A & B (AKSHAT) - Final
Nasal Swab Influenza B Positive, NAAT
Imaging:
06/17/2024 CT chest/abdomen/pelvis: There is a staghorn calculus within the right calyces, and extending into the right renal pelvis. There are small foci of air within the right renal pelvis adjacent to the calculus. No areas seen within the renal
parenchyma or findings to suggest emphysematous pyelonephritis. There is moderate diffuse atrophy of the left kidney, and no evidence for air within the left collecting system. No air identified within the bladder. Patient is status post
cholecystectomy. No evidence for biliary ductal dilatation. Please see full dictation for additional detail. Film personally viewed.
[2024-06-23] MEDS: AMOXIL 500 MG PO ×2 (17:01→23:50)
[2024-06-23 17:16] LABS: Glucose - Point of Care 203 mg/dl (70-99)
[2024-06-23] MEDS: KCL 20 MEQ PO (21:24)
[2024-06-23 21:35] LABS: Glucose - Point of Care 132 mg/dl (70-99)
[2024-06-24 03:30] VITALS: BP 153/82
[2024-06-24] MEDS: DILAUDID 0.5 MG IV ×3 (04:49→20:35)
[2024-06-24 07:15] VITALS: BP 151/84
[2024-06-24 07:42] LABS: Blood Urea Nitrogen 52 mg/dl (7-17); Calcium 9.9 mg/dl (8.4-10.2); Carbon Dioxide 30 mmol/L (22-30); Chloride 102 mmol/L (98-107); Estimated Creatinine Clearance 30 ml/min; Glucose 120 mg/dl (70-99); Potassium 3.4 mmol/L (3.5-5.1); Sodium 142 mmol/L (135-145); eGFR 27.37
--- NOTE | 2024-06-24 09:31 | W.PN.HOSP.TC ---
Today's Communication/Plan
-
Antibiotics. Replete potassium.
Assessment / Plan
Assessment / Plan
Gen-AAOx3, NAD, obese
HEENT-NC, AT, anicteric, clear oral mm
Neck-supple
CV-reg, no M, +S1/S2
Lungs-clear B/L
Abd-soft, NT, ND
Ext-no edema
Musculoskeletal-no cyanosis, clubbing
Skin-warm and dry
Neuro-grossly non-focal
Psych-calm, cooperative
A/P:
Septic shock with bacteremia-improved. 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 Staghorn calculus status post right ureteral stent. Removal of Wetzel per urology today. Proteus mirabilis blood cultures on
06/17. Blood cultures clear on 06/19. Antibiotics switched to amoxicillin by ID. WBC trending down 28.6-->7.8. PT OT recommends home health.
KRISTEN -likely due to septic shock, volume depletion. Creatinine today 1.9 (peak creatinine 4.2). Initially on IV fluids but has received IV Lasix over the last couple of days. Nephrology following.
DM2 with significant hyperglycemia adn hypoglycemia. No DKA -on insulin 70/30 25 units twice daily. Monitor blood sugars
Anemia-hemoglobin 11.7. It has remained stable.
Acute influenza B infection -completed course of Tamiflu.
Hypokalemia-replete and trend
Bradycardia-resolved. Transient sinus bradycardia likely hypokalemia contributing. Twelve-lead EKG normal sinus rhythm unremarkable at this morning.
Acute metabolic encephalopathy -likely due to septic shock, KRISTEN, critical illness. CT head without acute disease. Mental status improved.
Elevated LFTs -ischemia from shock-trending down appropriately. Will trend every so often now.
Type II CA-continue current medications and ischemic evaluation as outpatient per cardiology.
Thrombocytopenia -sepsis related-improved back to normal 135.
Acute nontraumatic rhabdomyolysis -normalized
Left adnexal mass -outpatient follow-up.
Essential hypertension -continue hold home medications due to KRISTEN. Continue amlodipine 5 mg daily
Hyperlipidemia -on atorvastatin, hold for now given elevated LFTs.
History of bladder cancer -treated with tumor resection, intravesicular chemotherapy.
History of right hemicolectomy -done for spontaneous perforation of the colon according to family.
Obesity due to excess calories
Full code
Anticipated Discharge: Within 24 hours
Subjective/Interval History
-
Date of Service: June 24, 2024
Patient is urinating, denies nausea or vomiting. Afebrile. Remains weak
Objective Data
-
Labs:
Laboratory Results
06/24/24
06:48
Sodium 142
Potassium 3.4 L
Chloride 102
Carbon Dioxide 30
BUN 52 H
Creatinine 1.9 H
Glucose 120 H
Calcium 9.9
Vital Signs:
Vital Signs
Temp Pulse Resp BP Pulse Ox
97.5 F 86 20 153/82 95
06/24/24 03:30 06/24/24 03:30 06/24/24 03:30 06/24/24 03:30 06/24/24 03:30
I&O
06/23/24 06/24/24 06/25/24
06:59 06:59 06:59
Intake Total 1000 / 1000 1560 / 1560
Output Total 2725 / 2725 225 / 225
Balance -1725 / -1725 1335 / 1335
[2024-06-24] MEDS: NOVOLOG FLEXPEN-LOW RESISTANCE SC ×2 (09:44→16:55)
[2024-06-24 09:45] LABS: Glucose - Point of Care 121 mg/dl (70-99)
[2024-06-24] MEDS: NORVASC 5 MG PO (09:45)
[2024-06-24] MEDS: KCL 40 MEQ PO (09:45)
[2024-06-24] MEDS: AMOXIL 500 MG PO ×3 (09:45→23:14)
[2024-06-24] MEDS: LOW STRENGTH ASPIRIN 81 MG PO (09:45)
[2024-06-24] MEDS: HEPARIN 5000 UNITS SC ×3 (09:46→23:14)
[2024-06-24] MEDS: DESENEX/MITRAZOL/ZEASORB 1 APPLIC TOPICAL ×2 (09:46→20:35)
[2024-06-24] MEDS: NOVOLOG MIX 70/30 FLEXPEN 25 UNITS SC ×2 (09:46→16:58)
--- NOTE | 2024-06-24 10:56 | W.PN.URO.CBU ---
Today's Communication / Plan
-
future treatment of staghorn continue prsent car
Assessment / Plan
-
Urosepsis: Proteus mirabilis bacteremia
Right staghorn stone
Gas in right renal pelvis
KRISTEN: resolving
---
History of superficial bladder cancer manage at [facility]
Diagnosis
-
Date of Service: June 24, 2024
-
Patient Diagnosis:
Post Op Day:
Patient Diagnosis:
Probable urosepsis/complicated UTI
Proteus mirabilis bacteremia
Right staghorn stone with gas in renal pelvis. No evidence of gas in renal parenchyma
KRISTEN: improving
---
History of Type 2 DM
---
Patient was advised regarding the need for urgent intervention to attempt to decompress/drain the right renal collecting system, including risks of surgery and anesthesia, most notably the potential for worsening symptoms of sepsis and gross
hematuria along with potential right ureteral injury
She has provided written and verbal consent
---
She has a history of superficial bladder cancer: s/p TURBT with intravesical therapy ([facility])
Subjective
-
no fever chills
Objective
-
Vital Signs
Temp Pulse Resp BP Pulse Ox
97.2 F 87 16 151/84 97
06/24/24 07:15 06/24/24 09:45 06/24/24 07:15 06/24/24 09:45 06/24/24 07:15
Intake and Output
06/23/24 06/24/24 06/25/24
06:59 06:59 06:59
Intake Total 1000 / 1000 1560 / 1560
Output Total 2725 / 2725 225 / 225
Balance -1725 / -1725 1335 / 1335
Intake:
Oral fluids 1000 / 1000 1560 / 1560
Output:
Urine, Wetzel 2725 / 2725
Urine, Voided 225 / 225
Other:
Number of approximated MODERATE 1 4
amounts of urine
How many times incontinent 4
MODERATE amount urine
Laboratory Results
06/23/24 05:45
06/24/24 06:48
Review of Systems
-
: Frequency and Urgency
Physical Exam
-
General - well developed, well nourished, no acute distress
Chest - clear bilaterally
Abdomen - soft, non-tender, positive bowel sounds, no CVAT, no incisional pain or distention
Genitalia - normal
Rectal - normal
Skin - warm & dry with no rash
Neuro - AOx3, no motor deficits
Extremities - no clubbing, no cyanosis, no edema
Incision - clean, dry
Dressing - clean, dry, intact
[2024-06-24 11:00] VITALS: BP 130/68
[2024-06-24 12:08] LABS: Glucose - Point of Care 199 mg/dl (70-99)
[2024-06-24] MEDS: NOVOLOG FLEXPEN-LOW RESISTANCE 1 UNITS SC (12:15)
--- NOTE | 2024-06-24 12:15 | W.PN.NEPH.PH ---
Today's Communication / Plan
-
lasix, replace k
Assessment/Plan
-
Impression:
Acute kidney injury
Chronic kidney disease with unknown baseline
acute metabolic encephalopathy/Hyperglycemia
Anion gap metabolic acidosis of 26
Sepsis with suspected underlying uroseptic source:Proteus
Right sided kidney staghorn calculus with associated pyelonephritis
Left renal atrophy
History of hypertension
History of dyslipidemia
History of bladder cancer status post tumor resection
Diabetes
Non-ST elevation [place]
Influenza positive
Thrombocytopenia
Elevated CPK
Plan:
lasix today again for edema, replace k
cr stable at 1.9, no baseline known
follow BMP
changed to po abx per ID
BP stable
upon d/c she will follow her Nephrology at [facility]
-
-
Date of Service: June 24, 2024
CC / HPI / ROS
-
Chief Complaint:
KRISTEN with CKD
History of Present Illness:
cr stable at 1.9, off seth , UOP not measured
BP stable
no fever, bicarb at 30
k low 3.4
Review of Systems:
no cp or sob
no n/v
Labs
-
Labs:
WBC 7.8 10^3/uL (4.8-10.8) 06/23/24 05:45
RBC 3.71 10^6/uL (4.20-5.40) L 06/23/24 05:45
Hgb 11.7 g/dL (12.0-16.0) L 06/23/24 05:45
Hct 33.5 % (37.0-47.0) L 06/23/24 05:45
Plt Count 135 10^3/uL (130-400) 06/23/24 05:45
Sodium 142 mmol/L (135-145) 06/24/24 06:48
Potassium 3.4 mmol/L (3.5-5.1) L 06/24/24 06:48
Chloride 102 mmol/L (98-107) 06/24/24 06:48
Carbon Dioxide 30 mmol/L (22-30) 06/24/24 06:48
BUN 52 mg/dl (7-17) H 06/24/24 06:48
Creatinine 1.9 mg/dL (0.6-1.0) H 06/24/24 06:48
eGFR 27.37 06/24/24 06:48
Glucose 120 mg/dl (70-99) H 06/24/24 06:48
Calcium 9.9 mg/dl (8.4-10.2) 06/24/24 06:48
Phosphorus 3.7 mg/dl (2.5-4.5) 06/21/24 05:39
Albumin 3.2 g/dl (3.5-5.0) L 06/22/24 08:20
Physical Exam
-
Vital Signs:
Vital Signs
Temp Pulse Resp BP Pulse Ox
97.6 F 85 18 130/68 98
06/24/24 11:00 06/24/24 11:00 06/24/24 11:00 06/24/24 11:00 06/24/24 11:00
Cardiovascular:: Regular rate and rhythm
Respiratory:: Bilateral: CTA
Lung Excursion:: Normal
Abdomen:: Nontender and Soft
Extremity Edema:: +1: Bilateral:
Seth Catheter: No
[2024-06-24] MEDS: LASIX 20 MG IV (12:45)
--- NOTE | 2024-06-24 14:58 | CM ---
Received consult for VN
Chart reviewed. Met with pt
Pt reports recently moved. Does not have PCP. Scheduled appt with Ne PCP for July. Given info for Family Practice clinic located at the [facility]. Encouraged to discuss PCP options with family. Dr Nick aware - unable to refer to
VN at this time as pt does not have a PCP
Plan - anticipate home no needs until PCP obtained
[2024-06-24 15:10] VITALS: BP 115/74
[2024-06-24 16:49] LABS: Glucose - Point of Care 142 mg/dl (70-99)
[2024-06-24 19:11] VITALS: BP 131/76
[2024-06-24] MEDS: KCL 20 MEQ PO (20:35)
[2024-06-24 22:13] LABS: Glucose - Point of Care 149 mg/dl (70-99)
[2024-06-24 23:30] VITALS: BP 135/71
[2024-06-25] MEDS: DILAUDID 0.5 MG IV ×3 (01:30→08:15)
[2024-06-25 03:50] VITALS: BP 126/64
[2024-06-25 04:10] VITALS: BP 126/64
[2024-06-25 06:56] LABS: Glucose - Point of Care 106 mg/dl (70-99)
[2024-06-25 07:15] VITALS: BP 149/69
[2024-06-25 07:57] LABS: Blood Urea Nitrogen 44 mg/dl (7-17); Carbon Dioxide 29 mmol/L (22-30); Chloride 103 mmol/L (98-107); Estimated Creatinine Clearance 31 ml/min; Glucose 103 mg/dl (70-99); Potassium 3.7 mmol/L (3.5-5.1); Sodium 141 mmol/L (135-145)
[2024-06-25] MEDS: NOVOLOG FLEXPEN-LOW RESISTANCE SC (08:14)
[2024-06-25] MEDS: AMOXIL 500 MG PO ×2 (08:14→16:30)
[2024-06-25] MEDS: HEPARIN 5000 UNITS SC ×2 (08:16→16:30)
[2024-06-25] MEDS: LOW STRENGTH ASPIRIN 81 MG PO (08:17)
[2024-06-25] MEDS: DESENEX/MITRAZOL/ZEASORB 1 APPLIC TOPICAL (08:17)
[2024-06-25] MEDS: NORVASC 5 MG PO (08:17)
--- NOTE | 2024-06-25 08:58 | W.PN.HOSP.TC ---
Today's Communication/Plan
-
Discharge planning today.
Assessment / Plan
Assessment / Plan
Gen-AAOx3, NAD, obese
HEENT-NC, AT, anicteric, clear oral mm
Neck-supple
CV-reg, no M, +S1/S2
Lungs-clear B/L
Abd-soft, NT, ND
Ext-no edema
Musculoskeletal-no cyanosis, clubbing
Skin-warm and dry
Neuro-grossly non-focal
Psych-calm, cooperative
A/P:
Septic shock with bacteremia-improved. 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 Staghorn calculus status post right ureteral stent. Removal of Wetzel per urology today. Proteus mirabilis blood cultures on
06/17. Blood cultures clear on 06/19. Antibiotics switched to amoxicillin by ID. WBC trending down 28.6-->7.8. PT OT recommends home health. Plan to discharge today.
KRISTEN -likely due to septic shock, volume depletion. Creatinine today 1.8 (peak creatinine 4.2). Initially on IV fluids but has received IV Lasix over the last couple of days. Nephrology following.
DM2 with significant hyperglycemia adn hypoglycemia. No DKA -on insulin 70/30 25 units twice daily. Monitor blood sugars
Anemia-hemoglobin 11.7 last. It has remained stable.
Acute influenza B infection -completed course of Tamiflu.
Hypokalemia-replete and trend
Bradycardia-resolved. Transient sinus bradycardia likely hypokalemia contributing. Twelve-lead EKG normal sinus rhythm unremarkable at this morning.
Acute metabolic encephalopathy -likely due to septic shock, KRISTEN, critical illness. CT head without acute disease. Mental status improved.
Elevated LFTs -ischemia from shock-trending down appropriately. Will trend every so often now.
Type II AL-continue current medications and ischemic evaluation as outpatient per cardiology.
Thrombocytopenia -sepsis related-improved back to normal 135.
Acute nontraumatic rhabdomyolysis -normalized
Left adnexal mass -outpatient follow-up.
Essential hypertension -continue hold home medications due to KRISTEN. Continue amlodipine 5 mg daily
Hyperlipidemia -on atorvastatin, hold for now given elevated LFTs.
History of bladder cancer -treated with tumor resection, intravesicular chemotherapy.
History of right hemicolectomy -done for spontaneous perforation of the colon according to family.
Obesity due to excess calories
Full code
Anticipated Discharge: Today
Subjective/Interval History
-
Date of Service: June 25, 2024
No new complaints. Afebrile
Objective Data
-
Labs:
Laboratory Results
06/25/24
06:29
Sodium 141
Potassium 3.7
Chloride 103
Carbon Dioxide 29
BUN 44 H
Creatinine 1.8 H
Glucose 103 H
Calcium 10.0
Vital Signs:
Vital Signs
Temp Pulse Resp BP Pulse Ox
97.5 F 66 14 149/69 97
06/25/24 07:15 06/25/24 08:17 06/25/24 07:15 06/25/24 08:17 06/25/24 07:15
I&O
06/24/24 06/25/24 06/26/24
06:59 06:59 06:59
Intake Total 1560 / 1560 1620 / 1620
Output Total 225 / 225
Balance 1335 / 1335 1620 / 1620
[2024-06-25] MEDS: NOVOLOG MIX 70/30 FLEXPEN 25 UNITS SC ×2 (09:01→16:32)
--- NOTE | 2024-06-25 09:37 | W.PN.URO.CBU ---
Today's Communication / Plan
-
d/c when ok by id and hospitalist
Assessment / Plan
-
Urosepsis: Proteus mirabilis bacteremia
Right staghorn stone
Gas in right renal pelvis
KRISTEN: resolving
---
History of superficial bladder cancer manage at [facility] plan per hospitalistand id will txc as outptint the staghorn
Diagnosis
-
Date of Service: June 25, 2024
-
Patient Diagnosis:
Post Op Day:
Patient Diagnosis:
Post Op Day:
Patient Diagnosis:
Probable urosepsis/complicated UTI
Proteus mirabilis bacteremia
Right staghorn stone with gas in renal pelvis. No evidence of gas in renal parenchyma
KRISTEN: improving
---
History of Type 2 DM
---
Patient was advised regarding the need for urgent intervention to attempt to decompress/drain the right renal collecting system, including risks of surgery and anesthesia, most notably the potential for worsening symptoms of sepsis and gross
hematuria along with potential right ureteral injury
She has provided written and verbal consent
---
She has a history of superficial bladder cancer: s/p TURBT with intravesical therapy ([facility])
Subjective
-
feels baseline
Objective
-
Vital Signs
Temp Pulse Resp BP Pulse Ox
97.5 F 66 14 149/69 97
06/25/24 07:15 06/25/24 08:17 06/25/24 07:15 06/25/24 08:17 06/25/24 07:15
Intake and Output
06/24/24 06/25/24 06/26/24
06:59 06:59 06:59
Intake Total 1560 / 1560 1620 / 1620
Output Total 225 / 225
Balance 1335 / 1335 1619 / 1619
Intake:
Oral fluids 156 / 1560 1619
Output:
Urine, Voided 225 / 225
Other:
Number of approximated MODERATE 4
amounts of urine
Number of approximated LARGE 4
amounts of urine
How many times incontinent 3
SMALL amount urine
How many times incontinent 4
MODERATE amount urine
How many times incontinent 1
SATURATED amount urine
Laboratory Results
06/23/24 05:45
06/25/24 06:29
Review of Systems
-
: No Symptoms
Physical Exam
-
General - well developed, well nourished, no acute distress
Chest - clear bilaterally
Abdomen - soft, non-tender, positive bowel sounds, no CVAT, no incisional pain or distention
Genitalia - normal
Rectal - normal
Skin - warm & dry with no rash
Neuro - AOx3, no motor deficits
Extremities - no clubbing, no cyanosis, no edema
Incision - clean, dry
Dressing - clean, dry, intact
Care Review
Data Reviewed
Discussed with: Nursing
[2024-06-25 11:15] VITALS: BP 128/52
[2024-06-25 11:58] LABS: Glucose - Point of Care 154 mg/dl (70-99)
[2024-06-25] MEDS: NOVOLOG FLEXPEN-LOW RESISTANCE 1 UNITS SC ×2 (12:18→16:30)
--- NOTE | 2024-06-25 12:40 | W.PN.NEPH.PH ---
Addendum entered and electronically signed by Alicia Joya MD 06/25/24 13:04:
ok to cont Amlodipine, could take lasix prn for edema and f/u with nephro
then can resume ACI/HCTZ if needed
Original Note:
Today's Communication / Plan
-
ok for d/c
Assessment/Plan
-
Impression:
Acute kidney injury
Chronic kidney disease with unknown baseline
acute metabolic encephalopathy/Hyperglycemia
Anion gap metabolic acidosis of 26
Sepsis with suspected underlying uroseptic source:Proteus
Right sided kidney staghorn calculus with associated pyelonephritis
Left renal atrophy
History of hypertension
History of dyslipidemia
History of bladder cancer status post tumor resection
Diabetes
Non-ST elevation [place]
Influenza positive
Thrombocytopenia
Elevated CPK
Plan:
cr better at 1.8, no baseline known
hold INvokana
po abx per ID
BP stable, ok to resume HCTZ, ramipril if needed
elevate legs
BMP in 1 week
upon d/c she will follow her Nephrology at [facility]
-
-
Date of Service: June 25, 2024
CC / HPI / ROS
-
Chief Complaint:
KRISTEN with CKD
History of Present Illness:
cr stable at 1.8, off seth , UOP not measured
BP stable
no fever,
k better 3.7
Review of Systems:
no cp or sob
no n/v
persist right abd pain-better with meds
Labs
-
Labs:
WBC 7.8 10^3/uL (4.8-10.8) 06/23/24 05:45
RBC 3.71 10^6/uL (4.20-5.40) L 06/23/24 05:45
Hgb 11.7 g/dL (12.0-16.0) L 06/23/24 05:45
Hct 33.5 % (37.0-47.0) L 06/23/24 05:45
Plt Count 135 10^3/uL (130-400) 06/23/24 05:45
Sodium 141 mmol/L (135-145) 06/25/24 06:29
Potassium 3.7 mmol/L (3.5-5.1) 06/25/24 06:29
Chloride 103 mmol/L (98-107) 06/25/24 06:29
Carbon Dioxide 29 mmol/L (22-30) 06/25/24 06:29
BUN 44 mg/dl (7-17) H 06/25/24 06:29
Creatinine 1.8 mg/dL (0.6-1.0) H 06/25/24 06:29
eGFR 29.20 06/25/24 06:29
Glucose 103 mg/dl (70-99) H 06/25/24 06:29
Calcium 10.0 mg/dl (8.4-10.2) 06/25/24 06:29
Phosphorus 3.7 mg/dl (2.5-4.5) 06/21/24 05:39
Albumin 3.2 g/dl (3.5-5.0) L 06/22/24 08:20
Physical Exam
-
Vital Signs:
Vital Signs
Temp Pulse Resp BP Pulse Ox
97.5 F 66 14 149/69 97
06/25/24 07:15 06/25/24 08:17 06/25/24 07:15 06/25/24 08:17 06/25/24 07:15
Cardiovascular:: Regular rate and rhythm
Respiratory:: Bilateral: CTA
Lung Excursion:: Normal
Abdomen:: Nontender and Soft
Extremity Edema:: +1: Bilateral:
Seth Catheter: No
--- NOTE | 2024-06-25 13:08 | W.DCSUMMARY ---
Discharge Summary
Discharge Data
Date of Admission: 06/17/24
Date of Discharge: 06/25/24
-
Pending Results: No
Hospital Course
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 Patient was given broad-spectrum
antibiotics, IV fluids, pressors. She was also found to have influenza type B. ID and urology consulted. Physical Therapist on board when admitted. Patient found to have a right staghorn stone and and right JJ stent placed by urology on 06/18.
Cardiology consulted for elevated troponin as well. It was felt that she had type II [place] and eventual ischemic workup would be evaluated as outpatient. Patient clinical status improved over a prolonged hospital stay. Blood cultures positive with
Proteus mirabilis and follow-up cultures were sterile. She also had KRISTEN. Required diuretics. She required multiple changes on her medications. Discussed with nephrology upon discharge and her DADA inhibitor and HCTZ were held and she was treated
with calcium channel blockers and this will be continued and will monitor renal function as outpatient to determine if those medications can be reinstituted. Invokana discontinued in the setting of renal failure and UTI and managed well with
insulin. She also will be on a low-dose of diuretics as needed. Patient insulin doses also were decreased due to hypoglycemia. She worked with PT and OT during this hospital stay. She will require stone management as outpatient by urology. Cr
was 4.9 upon admission and down to 1.8 upon discharge. She has been cleared for discharge by ID and urology and nephrology. Otherwise, patient hemodynamically stable and afebrile and feels symptomatically much improved. Patient will be discharged
in stable condition today.
Discharge duration: 35 minutes
Discharge Plan
-
Patient Disposition: Home (Routine Discharge)
Discharge Diagnosis/Procedures: Septic shock with bacteremia due to right-sided emphysematous pyelitis without emphysematous pyelonephritis. Staghorn calculus status post right ureteral stent. Acute kidney injury. Diabetes mellitus. Influenza B.
Hypokalemia. Acute metabolic encephalopathy elevated liver function test. Type II myocardial infarction. Thrombocytopenia sepsis related. Rhabdomyolysis. Left adnexal mass. History of bladder cancer hypertension. Hyperlipidemia. Obesity.
Diet: Low Cholesterol, 2 Gram Sodium and Restrict fluids to 48 oz
Activity: As tolerated
Blood Work: Please PCP to order CBC, CMP within 1 week.
Referrals:
Primary care, provider [Other] (See less than 1 week)
Martin Bkaer MD [Active] - in one to two weeks
Alicia Joya MD [Active] - in two to three weeks
Prescriptions:
New
amlodipine 5 mg Tablet
5 mg PO DAILY 30 Days Qty: 30 0RF
aspirin 81 mg Tablet,Chewable
81 mg PO DAILY Qty: 30 0RF
amoxicillin 500 mg Capsule
500 mg PO Q8H 6 Days Qty: 18 0RF
furosemide [Lasix] 20 mg tablet
20 mg PO DAILY PRN (Reason: Weight gain) Qty: 20 0RF
Rx Instructions:
If gain>2 lb/day or >4 lbs/week.
Continued
atorvastatin 40 mg tablet
40 mg PO DAILY
Changed
insulin asp prt-insulin aspart [Novolog Mix 70-30FlexPen U-100] 100 unit/mL (70-30) Insulin Pen
25 unit SC BID@0800,1700 Qty: 0 0RF
Discontinued
hydrochlorothiazide 25 mg tablet
5 mg PO DAILY
ramipril 5 mg capsule
5 mg PO DAILY
Invokana 100 mg tablet
100 mg PO DAILY
Discharge Orders:
Discharge Patient (As Directed); Ordered 06/25/24
Ordered By: Arvin Nick
Discharge Date and Time
Print Language: ALBANIAN
--- NOTE | 2024-06-25 14:16 | CM ---
Pt for discharge today
Pt reports will have a ride home with and son
Reports has PCP appt scheduled
Discussed IMM
Plan - home no needs
[2024-06-25 15:54] VITALS: BP 130/58
[2024-06-25 16:37] LABS: Glucose - Point of Care 197 mg/dl (70-99)
--- NOTE | 2024-06-26 14:45 | CM ---
Received call from Sharmila at [facility]
Requesting clinical info - pt for MARBIN
Pts PCP Dr Seo notified [facility] pt recently d/c'ed from hospital - requesting resumption of services
Clinical info faxed to [facility] [phone]
== END 2024-06-25 17:13 | disposition home or self-care (01) | DRG 853 ==
LOC: 2 NORTH 19:19
PROVIDERS: Nurse Practitioner Family; Physician Assistant; Specialist; ADMITTING PHYSICIAN Hospitalist; ATTENDING PHYSICIAN Hospitalist; CONSULT PHYSICIAN Internal Medicine Cardiovascular Disease; CONSULT PHYSICIAN Internal Medicine Critical Care Medicine; CONSULT PHYSICIAN Internal Medicine Infectious Disease; CONSULT PHYSICIAN Nurse Practitioner Acute Care; CONSULT PHYSICIAN Specialist; EMERGENCY PHYSICIAN Student in an Organized Health Care Education/Training Program
PROC: 0T768DZ Dilation of Right Ureter with Intraluminal Device, Via Natural or Artificial Opening Endoscopic (ICD-10-PCS; 2024-06-18)
DX: A41.9 Sepsis, unspecified organism (principal); E11.10 Type 2 diabetes mellitus with ketoacidosis without coma; N17.0 Acute kidney failure with tubular necrosis; R65.21 Severe sepsis with septic shock; G93.41 Metabolic encephalopathy; I21.A1 Myocardial infarction type 2; N12 Tubulo-interstitial nephritis, not specified as acute or chronic; I13.0 Hypertensive heart and chronic kidney disease with heart failure and stage 1 through stage 4 chronic kidney disease, or unspecified chronic kidney disease; E87.20 Acidosis, unspecified; M62.82 Rhabdomyolysis; Z11.52 Encounter for screening for COVID-19; N20.0 Calculus of kidney; E11.22 Type 2 diabetes mellitus with diabetic chronic kidney disease; E87.6 Hypokalemia; D69.59 Other secondary thrombocytopenia; I50.9 Heart failure, unspecified; N18.9 Chronic kidney disease, unspecified; E78.2 Mixed hyperlipidemia; E66.09 Other obesity due to excess calories; Z68.32 Body mass index [BMI] 32.0-32.9, adult; J10.1 Influenza due to other identified influenza virus with other respiratory manifestations
CPT/HCPCS: 70450; 71045; 71250; 74018; 74176; 76000; 80048; 80053; 80061; 80202; 81003; 81015; 82010; 82248; 82550; 82805; 82962; 82977; 83010; 83036; 83605; 83735; 84100; 84484; 85025; 85027; 85045; 85379; 85384; 85610; 85730; 86850; 86900; 86901; 86920; 87040; 87086; 87149; 87186; 87205; 87502; 87811; 93005; 93306; 96361; 96365; 96375; 97116; 97163; 97166; 99291; C2617

== ENCOUNTER 2024-07-07 21:08 | Inpatient (IN) | payer MEDICARE, OTHER, SELFPAY ==
[2024-07-07] VITALS (8 sets, daily range): BP systolic 131–161; BP diastolic 71–85; BMI 27.9
[2024-07-07 15:28] LABS: % Basophils 0.3 % (0-2); % Eosinophils 0.1 % (0-6); % Immature Granulocytes 0.6 % (0-0.5); % Lymphocytes 10.2 % (20.5-51.1); % Monocytes 6.8 % (1.7-9.3); Absolute Immature Granulocytes 0.1 10^3/uL (0-0.05); Absolute Lymphocytes 0.8 10^3/uL (1.2-3.4); Absolute Monocytes 0.5 10^3/uL (0.1-0.6); Absolute Neutrophils 6.5 10^3/uL (1.4-6.5); Hematocrit 37.8 % (37.0-47.0); Hemoglobin 12.9 g/dL (12.0-16.0); Mean Corp Hgb Conc. 34.1 g/dL (33.0-37.0); Mean Corpuscular Hgb 30.1 pg (27.0-31.0); Mean Corpuscular Volume 88.1 fL (81.0-99.0); Mean Platelet Volume 9.7 fL (7.4-10.4); Nucleated Red Blood Cells % 0 %; Platelet Count 261 10^3/uL (130-400); Red Blood Cell Count 4.29 10^6/uL (4.20-5.40); Red Cell Dist. Width 13.9 % (11.5-14.5)
[2024-07-07 15:46] LABS: ALT (SGPT) 25 U/L (0-35); AST (SGOT) 38 U/L (14-36); Alkaline Phosphatase 240 U/L (38-126); Blood Urea Nitrogen 26 mg/dl (7-17); Calcium 11.2 mg/dl (8.4-10.2); Carbon Dioxide 23 mmol/L (22-30); Chloride 102 mmol/L (98-107); Glucose 71 mg/dl (70-99); Sodium 140 mmol/L (135-145); Total Bilirubin 1.4 mg/dl (0.2-1.3); Total Protein 6.8 g/dl (6.3-8.2)
--- NOTE | 2024-07-07 17:01 | ED.GENMED ---
History of Present Illness
General
Chief Complaint: Urinary Symptoms
Time Seen by Provider: 07/07/24 16:36
History of Present Illness
History of Present Illness:
Patient presents to the emergency department with right-sided flank pain. Was admitted earlier in the month for staghorn calculus on the right side with bacteremia and emphysematous pyelitis. She had a right JJ stent placed by urology on June
8. She notes worsening and continued pain since then. She was referred in by her urologist for intervention. She denies any fevers. Endorses nausea vomiting.
Phy Exam
Physical Exam
Physical Exam:
GENERAL APPEARANCE: NAD, well developed/ well nourished
EYES lids/conjunctiva normal
EARS/NOSE/THROAT Mucous membranes moist,
HEAD/NECK normocephalic atraumatic, neck is supple.
RESPIRATORY respiratory effort normal, speaks in full sentences, no accessory muscle use. Lungs clear to auscultation without rhonchi, wheezes, rales
CARDIAC Regular rate and rhythm, no edema.
ABDOMINAL Soft, right-sided flank and lumbar tenderness to palpation. No visible changes or lesions.
MUSCLES/EXTREMITIES No abnormal range of motion, no swelling.
SKIN Warm, pink and dry. No rashes
NEUROLOGICAL Speech is clear and appropriate. Normal level of consciousness. 5/5 strength in all extremities.
PSYCH Normal mood and affect. Judgement/competence is appropriate
Course
Orders/Labs/Results
Orders:
Orders
07/07/24 14:59
Complete Blood Count/With Diff Urgent
Comprehensive Metabolic Panel Urgent
07/07/24 16:06
Urinalysis Reflex To Culture Urgent
Date Specimen was Collected: 07/07/24
Time Specimen was Collected: 14:54
Urine Microscopic Reflex Cult Urgent
Urine Culture Urgent
SHELIA Source: U
Specimen Description:
Date Specimen was Collected: 07/07/24
Time Specimen was Collected: 14:54
07/07/24 17:10
HYDROmorphone [Dilaudid] 0.25 mg IV NOW STA
07/07/24 17:11
CR Abdomen - 1 View Urgent
Comment:
Reason For Exam: view stent placement
07/07/24 17:31
CefTRIAXone [Rocephin] 1,000 mg IV NOW STA
07/07/24 18:09
Blood Culture Urgent
SHELIA Source: Blood/Venous
Specimen Description:
07/07/24 19:36
HYDROmorphone [Dilaudid] 0.25 mg .ROUTE .STK-MED ONE
07/07/24 19:37
HYDROmorphone [Dilaudid] 0.25 mg IV NOW STA
Abnormal Lab Results
07/07/24 07/07/24
14:59 16:06
Abs Immat Gran (auto) 0.1 H 10^3/uL
(0-0.05)
Absolute Lymphs (auto) 0.8 L 10^3/uL
(1.2-3.4)
Immature Gran % 0.6 H %
(0-0.5)
Neutrophils % 82.0 H %
(42.2-75.2)
Lymphocytes % 10.2 L %
(20.5-51.1)
BUN 26 H mg/dl
(7-17)
Creatinine 1.8 H mg/dL
(0.6-1.0)
Calcium 11.2 H mg/dl
(8.4-10.2)
Total Bilirubin 1.4 H mg/dl
(0.2-1.3)
AST 38 H U/L
(14-36)
Alkaline Phosphatase 240 H U/L
(38-126)
Urine Ketones Trace A
(Negative)
Ur Occult Blood Reflex 1+ A
(Negative)
Urine Nitrite (Reflex) Positive A
(Negative)
Leukocyte Esterase Rfl 2+ A
(Negative)
Urine RBC 3-6 A /HPF
(0-2)
Urine WBC (Reflex) 80-90 A /HPF
(0-5)
Urine Bacteria (Reflex) Many A
(Negative)
Urine Glucose 2+ A
(Negative)
Urine Albumin (Reflex) 1+ A
(Neg - Trace)
07/07/24 14:59
07/07/24 14:59
Vital Signs
Initial and Last Documented VS:
Initial Vital Signs
Pulse Resp BP Pulse Ox
90 18 131/81 95
07/07/24 14:51 07/07/24 14:51 07/07/24 14:51 07/07/24 14:51
Last Documented Vital Signs
Temp Pulse Resp BP Pulse Ox
97.7 F 85 18 147/77 97
07/07/24 19:14 07/07/24 19:14 07/07/24 19:14 07/07/24 19:14 07/07/24 19:14
*Critical Care Note
Total Time (30-74mins, 75-104mins- exclusive of procedures): Not Applicable
ED Attending Note
-
Portions of this chart may have been created with voice recognition software.� Occasional wrong word or��sound alike� substitutions may have occurred due to the inherent limitations of voice recognition software.
Discharge Plan
Departure
Patient Disposition: Admit
Date of Disposition: 07/07/24
Time of Disposition: 19:21
Presentation/result/management discussed w/ accepting MD/DO: Hospitalist
Discharge Problem:
Staghorn calculus, Acute UTI
Prescriptions:
No Action
atorvastatin 40 mg tablet
40 mg PO DAILY
insulin asp prt-insulin aspart [Novolog Mix 70-30FlexPen U-100] 100 unit/mL (70-30) Insulin Pen
25 unit SC BID@0800,1700 Qty: 0 0RF
furosemide [Lasix] 20 mg tablet
20 mg PO DAILY PRN (Reason: Weight gain) Qty: 20 0RF
Rx Instructions:
If gain>2 lb/day or >4 lbs/week.
amlodipine 5 mg tablet
5 mg PO DAILY
aspirin 81 mg tablet,chewable
81 mg PO DAILY
Referrals:
Edmund Wong MD [Family Provider] -
Interventions
Interventions:
*Risk Screen - Suicide Last Done: 07/07/24 14:51
*General Assessment Last Done: 07/07/24 14:51
*Neglect/Abuse Screening Last Done: 07/07/24 14:51
ED- Fall Risk Assessment Last Done: 07/07/24 18:15
*ED COVID-19 Vaccine History Last Done: 07/07/24 18:15
ED-Female Genitourinary Assessment Last Done: 07/07/24 18:15
Discharge Date and Time
Print Language: KAZAKH
[2024-07-07 17:10] LABS: Urine Albumin 1+ (Neg - Trace); Urine Bilirubin Negative (Negative); Urine Character Very Cloudy (Clear); Urine Color Yellow; Urine Glucose 2+ (Negative); Urine Ketone Trace (Negative); Urine Leukocyte 2+ (Negative); Urine Nitrite Positive (Negative); Urine Occult Blood 1+ (Negative); Urine Urobilinogen Negative (Neg - 1+)
[2024-07-07] MEDS: DILAUDID 0.25 MG IV ×2 (17:23→19:39)
[2024-07-07 17:24] LABS: Urine White Cell 80-90 /HPF (0-5)
[2024-07-07 17:25] LABS: Urine Bacteria Many (Negative)
[2024-07-07] MEDS: ROCEPHIN 1000 MG IV (18:10)
--- NOTE | 2024-07-07 20:43 | HPS.HSE ---
Family Physician
-
Family Physician: Edmund Wong MD
Chief Complaint
-
Right flank pain
History of Present Illness
This is a 73 y.o female with diabetes and h/o staghorn calculus s/p R JJ stent on 06/18 presenting with worsening right sided flank pain.
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 She had a R JJ stent placed on 06/18
she has continued and worsening pain to the R flank, acutely worsening over past few days she is scheduled to have stone removed on 07/27 but states pain is too severe. She has no fevers or chills. Denies dysuria.
In ED she was afebrile, hemodynamically stable and non-toxic. CBC is unremarkable. Chemistries unchanged and stable. Stent appears in place on xray. UA is markedly positive with nitrites, wbc, bacteria and leukocyte esterase.
Medical History
Past Medical History
Past Medical History: Reports HTN, IDDM and Other (Nephrolithiasis)
Past Surgical History: Reports None
Social History
Tobacco: Non-smoker
Alcohol: None
Drug: None
Personal:
Living: With Family
Employment: Not Employed
Family History
Family History: Not pertinent
Allergies / Home Medications
Allergies reflects when Allergies were last updated in [facility].
Home Medications with original date entered in [facility]
Allergy/Medication List:
Allergies
Allergy/AdvReac Type Severity Reaction Status Date / Time
No Known Allergies Allergy Verified 07/07/24 14:51
Home Medications
atorvastatin 40 mg tablet 40 mg PO DAILY High Cholesterol 06/17/24
furosemide 20 mg tablet (Lasix) 20 mg PO DAILY PRN Weight gain #20 tabs 06/25/24
insulin aspar prot-insulin aspart 100 unit/mL (70-30) subcutaneous pen (Novolog Mix 70-30FlexPen U-100) 25 unit (0.25 mL) SC BID@0800,1700 Diabetes #0 mL 06/25/24
amlodipine 5 mg tablet 5 mg PO DAILY Blood Pressure 07/07/24
aspirin 81 mg chewable tablet 81 mg PO DAILY Blood Clot Prevention/Tx 07/07/24
Review of Systems
-
History Source: Patient
Constitutional: Reports No Symptoms
EENT: Reports No Symptoms
Respiratory: Reports No Symptoms
Cardiac: Reports No Symptoms
Abdomen/GI: Reports No Symptoms
: Reports Flank Pain
Musculoskeletal: Reports No Symptoms
Skin: Reports No Symptoms
Neurological: Reports No Symptoms
Endocrine: Reports No Symptoms
Hematologic/Lymphatic: Reports No Symptoms
Psych: Reports No Symptoms
Physical Exam
Vital Signs
Vital Signs
Temp Pulse Resp BP Pulse Ox
97.7 F 94 18 156/71 96
07/07/24 19:14 07/07/24 20:00 07/07/24 19:14 07/07/24 20:00 07/07/24 20:15
Physical Exam
General: Well Developed, Well Nourished and Pain
HEENT: NormoCephalic, Anicteric, Moist mucous membranes and Atraumatic
Respiratory: Clear
Cardiac: S1/S2 and Regular Rhythm
Breast: Deferred by me
GI: Soft, Non Tender, Non Distended and Normal Bowel Sounds
Rectal: Deferred by Provider
Genito-urinary: Costovertebral angle tend
Musculoskeletal: No Clubbing, No Cyanosis and No Edema
Skin: Warm
Neuro: AO x 3
Hematologic/Lymphatic: No Lymphadenopathy
Psych: Calm
Laboratory Results
-
07/07/24 14:59
07/07/24 14:59
Laboratory Results
Total Bilirubin 1.4 mg/dl (0.2-1.3) H 07/07/24 14:59
AST 38 U/L (14-36) H 07/07/24 14:59
ALT 25 U/L (0-35) 07/07/24 14:59
Alkaline Phosphatase 240 U/L (38-126) H 07/07/24 14:59
Data Reviewed
-
Diagnostic Radiology: Image Personally Visualized and interpreted
Lab Data: Labs Reviewed by me
Old Records: Reviewed
Impression/Plan
-
IMPRESSION:
PLAN:
Symptomatic Nephrolithiasis - Recent pyelitis with R staghorn calculus s/p RJJ stone. Comes with right sided flank pain. No obvious obstruction. Stent appears in place on Xray. Renal function is stable. + u/a. No fevers, chills, leukocytosis.
Nausea and severe flank pain.
- admit to med/surg
- urine cultures
- iv ceftriaxone for now
- pain control and antiemetics
- consulted urology, no plans for procedure over the weekend.
DM II - On 70/30 25 bid at home
- continue 70/30 at 20 bid for now
- moderate sliding scale insulin
HTN
- continue amlodipine.
DVT PPX - heparin sq
Code Status - Full
[2024-07-07 21:44] LABS: Glucose - Point of Care 66 mg/dl (70-99)
[2024-07-07 22:10] LABS: Glucose - Point of Care 88 mg/dl (70-99)
--- NOTE | 2024-07-07 22:51 | PTCARENOTE ---
Receive pt from ER. Pt alert oriented X3, calm and cooperative, in no distress. Pt pulled over to her bed. Pt oriented to the room, call witt within reach. VSS (T=98.3, HS=799, RR=20, GR=239/85, SpO2=95% on RA). Pt states that she has right flank
pain (03/20). Offered Tylenol, pt prefers to wait until Dilaudid is due. Pt was last given Dilaudid at 1939. Pt denies dysuria, or any other urinary symptoms. Pt's blood sugar=66, given orange juice per hypoglycemia protocol. 2nd blood sugar
check=88. Pt denies nausea at this time, but reports poor appetite. Pt offered a sandwich, but couldn't eat much. Will continue to monitor the pt.
[2024-07-07] MEDS: HEPARIN 5000 UNITS SC (23:04)
[2024-07-07] MEDS: DILAUDID 0.5 MG IV (23:55)
[2024-07-08 00:03] LABS: Glucose - Point of Care 129 mg/dl (70-99)
[2024-07-08 02:48] LABS: Glucose - Point of Care 117 mg/dl (70-99)
[2024-07-08] MEDS: TYLENOL 650 MG PO (03:30)
[2024-07-08] MEDS: DILAUDID 0.5 MG IV ×4 (03:57→22:03)
[2024-07-08 06:57] LABS: Hematocrit 36.3 % (37.0-47.0); Hemoglobin 12.3 g/dL (12.0-16.0); Mean Corp Hgb Conc. 33.9 g/dL (33.0-37.0); Mean Corpuscular Hgb 30.8 pg (27.0-31.0); Platelet Count 212 10^3/uL (130-400); Red Blood Cell Count 3.99 10^6/uL (4.20-5.40); White Blood Cell Count 8.2 10^3/uL (4.8-10.8)
--- NOTE | 2024-07-08 07:23 | CON.MD ---
Consultation - Medical
-
see dictated note
pt admitted with complex right renal stone and bactermia
stent placed
reports she was only using tylenol at home for pain
had escalating right flank pain- no fevers
admitted thru ER for pain control- no fevers/nl wbc- KUB- stent in good position
pt stable this am
plan
check ucx
pain control- will give baseline mobic and tramadol prn-dilaudid if needed
if pain can be controlled- plan would be for discharge and scheduled outpt stone procedure
will follow
[2024-07-08 07:34] VITALS: BP 127/70
[2024-07-08 07:46] LABS: Blood Urea Nitrogen 27 mg/dl (7-17); Calcium 10.7 mg/dl (8.4-10.2); Carbon Dioxide 22 mmol/L (22-30); Chloride 104 mmol/L (98-107); Estimated Creatinine Clearance 29 ml/min; Glucose 120 mg/dl (70-99); Potassium 4.1 mmol/L (3.5-5.1); Sodium 139 mmol/L (135-145)
--- NOTE | 2024-07-08 07:47 | W.PN.HOSP.TC ---
Today's Communication/Plan
-
see bold
Assessment / Plan
Assessment / Plan
HPI: 73 y.o female with diabetes and h/o staghorn calculus s/p R JJ stent on 06/18 presenting with worsening right sided flank pain.
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 She had a R JJ stent placed on 06/18
she has continued and worsening pain to the R flank, acutely worsening over past few days she is scheduled to have stone removed on 07/27 but states pain is too severe. She has no fevers or chills. Denies dysuria.
#Proteus bacteremia
07/07 blood culture growing Proteus
07/08 repeat blood culture
Increase Rocephin to 2 g IV every 24 hours, follow-up on sensitivities
#Right staghorn calculus
#Renal colic
Status post stent placement by Dr. Baker 06/18
Urology following, continue pain control
#Stage IIIb
Avoid nephrotoxic drugs/NSAIDs
Trend creatinine
#Type 2 diabetes
Continue carb controlled diet, 70/30 insulin 20 units twice a day, sliding scale insulin
#Essential hypertension
Continue amlodipine
#History of bladder cancer
#Hyperlipidemia
Continue statin
DVT prophylaxis�subcu heparin
Full code
Total time spent to see the patient on the floor, examine the patient, review data and lab results, discuss treatment plan with patient, nursing staff around 51 minutes.
Physical Exam
General: No acute distress
HEENT: Normocephalic, Atraumatic, EOMI, MMM
Respiratory: Clear to Auscultation bilaterally
Cardiac: Normal S1/S2, Regular Rate and Rhythm
GI: Soft, Nontender, Nondistended, Normal Bowel Sounds
Extremities: No Clubbing, Cyanosis, or Edema
Neuro: Nonfocal/Grossly Intact
Psych: Calm, Cooperative
Derm: No Visible lesions
Anticipated Discharge: > 48 hours
Subjective/Interval History
-
Date of Service: July 08, 2024
Continues to have right flank pain, 9 out of 10 in intensity. Reports nausea, no vomiting. No fever. No dysuria.
Objective Data
-
Labs:
Laboratory Results
07/08/24
05:50
WBC 8.2
Hgb 12.3
Hct 36.3 L
Plt Count 212
Sodium 139
Potassium 4.1
Chloride 104
Carbon Dioxide 22
BUN 27 H
Creatinine 1.8 H
Glucose 120 H
Calcium 10.7 H
Vital Signs:
Vital Signs
Temp Pulse Resp BP Pulse Ox
99.8 F 106 18 136/75 96
07/07/24 23:58 07/07/24 23:58 07/07/24 23:58 07/07/24 23:58 07/07/24 23:58
I&O
07/07/24 07/08/24 07/09/24
06:59 06:59 06:59
Intake Total 480 / 480
Balance 480 / 480
[2024-07-08 08:14] LABS: Glucose - Point of Care 118 mg/dl (70-99)
[2024-07-08] MEDS: NOVOLOG FLEXPEN-MODERATE RESISTANCE SC (08:46)
[2024-07-08] MEDS: HEPARIN 5000 UNITS SC ×3 (08:49→23:45)
[2024-07-08] MEDS: LIPITOR 40 MG PO (08:50)
[2024-07-08] MEDS: NORVASC 5 MG PO (08:51)
[2024-07-08] MEDS: LOW STRENGTH ASPIRIN 81 MG PO (08:51)
[2024-07-08] MEDS: NOVOLOG MIX 70/30 FLEXPEN 20 UNITS SC ×2 (08:52→17:43)
[2024-07-08] MEDS: MIRALAX PO ×2 (09:00→21:59)
[2024-07-08] MEDS: FLUSH (NSS) 1 FLUSH IV ×3 (09:54→17:58)
[2024-07-08 12:04] LABS: Glucose - Point of Care 177 mg/dl (70-99)
[2024-07-08] MEDS: NOVOLOG FLEXPEN-MODERATE RESISTANCE 1 UNITS SC ×2 (12:51→17:44)
[2024-07-08] MEDS: ROXICODONE 5 MG PO (14:43)
[2024-07-08 15:42] VITALS: BP 160/83
--- NOTE | 2024-07-08 16:34 | PTCARENOTE ---
Pt AAO x3, FOLEY; OOB to chair/BSC with assist x1; able to ambulate to stretcher in [place] with walker; assist x1. Pt c/o Rt lower back pain; good effect with IV Dilaudid; pt reported 'no relief' from PO Roxicodone; but was noted to be sleeping
comfortably after med given. VSS. On room air- pulse ox 98%. Abd obese, soft, laura PO well. Voids on BSC without difficulty; denies urgency/discomfort. Resting in bed at present; at bedside. Will continue to monitor.
[2024-07-08 16:52] LABS: Glucose - Point of Care 159 mg/dl (70-99)
[2024-07-08] MEDS: STERILE WATER FOR INJECTION 20 ML IV (17:45)
[2024-07-08] MEDS: ROCEPHIN 2000 MG IV (17:45)
[2024-07-08 21:16] LABS: Glucose - Point of Care 157 mg/dl (70-99)
[2024-07-08 23:26] VITALS: BP 139/74
[2024-07-09] MEDS: ROXICODONE 5 MG PO ×2 (01:50→21:31)
[2024-07-09] MEDS: DILAUDID 0.5 MG IV ×3 (04:10→23:37)
[2024-07-09 07:28] LABS: Glucose - Point of Care 154 mg/dl (70-99)
[2024-07-09 08:19] LABS: Hematocrit 35.5 % (37.0-47.0); Hemoglobin 12.3 g/dL (12.0-16.0); Mean Corp Hgb Conc. 34.6 g/dL (33.0-37.0); Mean Corpuscular Hgb 30.1 pg (27.0-31.0); Mean Platelet Volume 10.1 fL (7.4-10.4); Platelet Count 189 10^3/uL (130-400); Red Blood Cell Count 4.08 10^6/uL (4.20-5.40); Red Cell Dist. Width 13.8 % (11.5-14.5); White Blood Cell Count 7.7 10^3/uL (4.8-10.8)
--- NOTE | 2024-07-09 08:19 | W.PN.URO.CBU ---
Today's Communication / Plan
-
continue pain control and iv antibx
Assessment / Plan
-
right staghorn stone
persistent proteus bacteremia
right flank pain
pt's pain unusual for stent pain- but will follow- continue to try and covert to oral meds
had CT yesterday due to + blood cx- no air in the kidney- no hydro- stent well positioned
difficult situation given size of stone, size of pt (IR previously did not feel they could place perc tube) and opposite side renal atrophy
no acute indication for stent change- the stone is likely souce of infx
today will await cx results and continue antibx
will begin discussion of operative plan depending on her clinical course over the next 24-48hrs
Diagnosis
-
Date of Service: July 09, 2024
-
Patient Diagnosis:
staghorn stone
proteus bacteremia
flank pain
s/p stent placement
Subjective
-
pt still with intermittent right back pain- usually only with movement
no voiding complaints
afebrile
blood cx is again growing proteus
Objective
-
Vital Signs
Temp Pulse Resp BP Pulse Ox
98.1 F 82 18 139/74 95
07/08/24 23:26 07/08/24 23:26 07/08/24 23:26 07/08/24 23:26 07/08/24 23:26
Intake and Output
07/08/24 07/09/24 07/10/24
06:59 06:59 06:59
Intake Total 480 / 480 840 / 840
Output Total / 4
Balance 480 / 480 836 / 836
Intake:
Oral fluids 480 / 480 840 / 840
Output:
Urine, Voided /
Other:
Number of approximated MODERATE 2 2
amounts of urine
Review of Systems
-
Constitutional: Fatigue
Respiratory: No Symptoms
Cardiac: No Symptoms
Abdomen/GI: No Symptoms
: No Symptoms
Musculoskeletal: Other (back pain)
Physical Exam
-
General - no acute distress
Abdomen - soft, non-tender
[2024-07-09 08:25] VITALS: BP 152/83
--- NOTE | 2024-07-09 08:34 | W.PN.HOSP.TC ---
Today's Communication/Plan
-
See bold
Assessment / Plan
Assessment / Plan
HPI: 73 y.o female with diabetes and h/o staghorn calculus s/p R JJ stent on 06/18 presenting with worsening right sided flank pain.
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 She had a R JJ stent placed on 06/18
she has continued and worsening pain to the R flank, acutely worsening over past few days she is scheduled to have stone removed on 07/27 but states pain is too severe. She has no fevers or chills. Denies dysuria.
#Proteus bacteremia
#Right-sided pyelonephritis
#Infected right staghorn calculus
07/07 blood culture growing Proteus
07/08 repeat blood culture NTD
Increased Rocephin to 2 g IV every 24 hours, follow-up on sensitivities
Consult ID
#Right staghorn calculus
#Renal colic
Status post stent placement by Dr. Baker 06/18
Urology following, continue pain control
#Stage IIIb
Avoid nephrotoxic drugs/NSAIDs
Trend creatinine
#Type 2 diabetes
Continue carb controlled diet, 70/30 insulin 20 units twice a day, sliding scale insulin
#Essential hypertension
Continue amlodipine
#History of bladder cancer
#Hyperlipidemia
Continue statin
DVT prophylaxis�subcu heparin
Full code
Total time spent to see the patient on the floor, examine the patient, review data and lab results, discuss treatment plan with patient, nursing staff around 41 minutes.
Physical Exam
General: No acute distress
HEENT: Normocephalic, Atraumatic, EOMI, MMM
Respiratory: Clear to Auscultation bilaterally
Cardiac: Normal S1/S2, Regular Rate and Rhythm
GI: Soft, Nontender, Nondistended, Normal Bowel Sounds
Extremities: No Clubbing, Cyanosis, or Edema
Neuro: Nonfocal/Grossly Intact
Psych: Calm, Cooperative
Derm: No Visible lesions
Anticipated Discharge: > 48 hours
Subjective/Interval History
-
Date of Service: July 09, 2024
Patient reports that her right back pain is unchanged. No fever, no vomiting.
Objective Data
-
Labs:
Laboratory Results
07/09/24
07:15
WBC 7.7
Hgb 12.3
Hct 35.5 L
Plt Count 189
Sodium Pending
Potassium Pending
Chloride Pending
Carbon Dioxide Pending
BUN Pending
Creatinine Pending
Glucose Pending
Calcium Pending
Vital Signs:
Vital Signs
Temp Pulse Resp BP Pulse Ox
98.0 F 86 16 152/83 95
07/09/24 08:25 07/09/24 08:25 07/09/24 08:25 07/09/24 08:25 07/09/24 08:25
I&O
07/08/24 07/09/24 07/10/24
06:59 06:59 06:59
Intake Total 480 / 480 840 / 840
Output Total 4 / 4
Balance 480 / 480 836 / 836
[2024-07-09 08:51] LABS: Blood Urea Nitrogen 31 mg/dl (7-17); Calcium 10.7 mg/dl (8.4-10.2); Carbon Dioxide 23 mmol/L (22-30); Chloride 102 mmol/L (98-107); Estimated Creatinine Clearance 31 ml/min; Glucose 148 mg/dl (70-99); Magnesium 1.6 mg/dl (1.6-2.3); Potassium 4.4 mmol/L (3.5-5.1); Sodium 139 mmol/L (135-145); eGFR 31.27
[2024-07-09] MEDS: MIRALAX PO (09:19)
[2024-07-09] MEDS: LIPITOR 40 MG PO (09:20)
[2024-07-09] MEDS: LOW STRENGTH ASPIRIN 81 MG PO (09:20)
[2024-07-09] MEDS: NOVOLOG FLEXPEN-MODERATE RESISTANCE 1 UNITS SC (09:20)
[2024-07-09] MEDS: NORVASC 5 MG PO (09:20)
[2024-07-09] MEDS: NOVOLOG MIX 70/30 FLEXPEN 20 UNITS SC ×2 (09:20→16:40)
[2024-07-09] MEDS: HEPARIN 5000 UNITS SC ×3 (09:20→23:36)
[2024-07-09] MEDS: ULTRAM 50 MG PO (09:23)
[2024-07-09 12:13] LABS: Glucose - Point of Care 141 mg/dl (70-99)
[2024-07-09] MEDS: NOVOLOG FLEXPEN-MODERATE RESISTANCE SC (12:17)
[2024-07-09 15:35] VITALS: BP 123/69
[2024-07-09 16:40] LABS: Glucose - Point of Care 204 mg/dl (70-99)
[2024-07-09] MEDS: NOVOLOG FLEXPEN-MODERATE RESISTANCE 3 UNITS SC (16:40)
[2024-07-09] MEDS: STERILE WATER FOR INJECTION 20 ML IV (18:11)
[2024-07-09] MEDS: ROCEPHIN 2000 MG IV (18:11)
[2024-07-09] MEDS: TYLENOL 650 MG PO (18:28)
[2024-07-09 21:19] LABS: Glucose - Point of Care 162 mg/dl (70-99)
[2024-07-09] MEDS: MIRALAX 17 GRAMS PO (21:31)
[2024-07-09 23:54] VITALS: BP 136/76
[2024-07-10] MEDS: ULTRAM 50 MG PO (01:05)
[2024-07-10] MEDS: DILAUDID 0.5 MG IV ×5 (03:39→23:18)
[2024-07-10] MEDS: TYLENOL 650 MG PO ×2 (04:48→18:15)
--- NOTE | 2024-07-10 06:48 | W.PN.URO.CBU ---
Today's Communication / Plan
-
continue pain control and antibx
Assessment / Plan
-
right staghorn stone
persistent proteus bacteremia
right flank pain
pt's pain unusual for stent pain- but will follow- continue to try and covert to oral meds
had CT yesterday due to + blood cx- no air in the kidney- no hydro- stent well positioned
difficult situation given size of stone, size of pt (IR previously did not feel they could place perc tube) and opposite side renal atrophy
no acute indication for stent change- the stone is likely souce of infx
today will await cx results and continue antibx
will begin discussion of operative plan depending on her clinical course over the next 24-48hrs
Diagnosis
-
Date of Service: July 10, 2024
-
Patient Diagnosis:
staghorn stone
proteus bacteremia
flank pain
s/p stent placement
Subjective
-
pt stable- still with occ pain with movement requiring iv dilaudid- although resting comfortably now
ucx and blood cx showing proteus
Objective
-
Vital Signs
Temp Pulse Resp BP Pulse Ox
97.9 F 82 18 136/76 97
07/09/24 23:54 07/09/24 23:54 07/09/24 23:54 07/09/24 23:54 07/09/24 23:54
Intake and Output
07/08/24 07/09/24 07/10/24
06:59 06:59 06:59
Intake Total 480 / 480 840 / 840 560 / 560
Output Total / 4
Balance 480 / 480 836 / 836 560 / 560
Intake:
Oral fluids 480 / 480 840 / 840 560 / 560
Output:
Urine, Voided
Other:
Number of approximated MODERATE 2 2 2
amounts of urine
Number of approximated LARGE 1
amounts of urine
Review of Systems
-
Constitutional: Fatigue
Respiratory: No Symptoms
Cardiac: No Symptoms
Abdomen/GI: Other (flank pain)
: No Symptoms
Physical Exam
-
General - no acute distress
[2024-07-10 08:09] VITALS: BP 146/77
[2024-07-10 08:30] LABS: Glucose - Point of Care 147 mg/dl (70-99)
[2024-07-10] MEDS: HEPARIN 5000 UNITS SC ×3 (08:40→23:16)
[2024-07-10] MEDS: FLUSH (NSS) 1 FLUSH IV ×4 (08:40→17:26)
[2024-07-10] MEDS: LIPITOR 40 MG PO (08:41)
[2024-07-10] MEDS: NORVASC 5 MG PO (08:41)
[2024-07-10] MEDS: LOW STRENGTH ASPIRIN 81 MG PO (08:41)
[2024-07-10] MEDS: NOVOLOG MIX 70/30 FLEXPEN 20 UNITS SC ×2 (08:42→17:25)
[2024-07-10] MEDS: NOVOLOG FLEXPEN-MODERATE RESISTANCE SC (08:55)
[2024-07-10] MEDS: MIRALAX PO (09:08)
--- NOTE | 2024-07-10 09:34 | W.PN.HOSP.TC ---
Today's Communication/Plan
-
see A/P
Assessment / Plan
Assessment / Plan
HPI: 73 y.o female with diabetes and h/o staghorn calculus s/p R JJ stent on 06/18 presented with worsening right sided flank pain.
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 She had a R JJ stent placed on 06/18
she has continued and worsening pain to the R flank, acutely worsening over past few days she is scheduled to have stone removed on 07/27 but states pain is too severe. She has no fevers or chills. Denies dysuria.
A/P:
# Proteus bacteremia
# Right-sided pyelonephritis
# Infected right staghorn calculus
07/07 blood culture growing Proteus, 07/08 repeat blood culture no growth
Cont increased Rocephin at 2 g IV every 24 hours,
Consulted ID
# Right staghorn calculus
# Renal colic
Status post stent placement by Dr. Baker 06/18
Urology following, operative plan TBD
continue pain control
# Stage IIIb
Avoid nephrotoxic drugs/NSAIDs
Trend creatinine
# Type 2 diabetes
Continue carb controlled diet, 70/30 insulin 20 units twice a day, sliding scale insulin
# Essential hypertension
Continue amlodipine
# History of bladder cancer
# Hyperlipidemia
Continue statin
DVT prophylaxis�subcu heparin
Full code
Anticipated Discharge: > 48 hours
Subjective/Interval History
-
Date of Service: July 10, 2024
Objective Data
-
Labs:
Laboratory Results
07/10/24
09:29
WBC Pending
Hgb Pending
Hct Pending
Plt Count Pending
Sodium Pending
Potassium Pending
Chloride Pending
Carbon Dioxide Pending
BUN Pending
Creatinine Pending
Glucose Pending
Calcium Pending
Vital Signs:
Vital Signs
Temp Pulse Resp BP Pulse Ox
36.6 C 78 18 146/77 95
07/10/24 08:09 07/10/24 08:41 07/10/24 08:09 07/10/24 08:41 07/10/24 08:32
I&O
07/09/24 07/10/24 07/11/24
06:59 06:59 06:59
Intake Total 840 / 840 560 / 560
Output Total
Balance 836 / 836 560 / 560
Review of Systems
-
History Source: Patient
Genitourinary: Reports Flank Pain (R flank intermittent pain)
Physical Exam
-
General: Well Developed, Well Nourished, No Apparent Distress, Comfortable, Conversant and Appears Chronically Ill; Negative Respiratory Distress
HEENT: Normocephalic, Atraumatic, Nose Appears Normal and Ears Appear Normal; Negative Oxygen
Respiratory: Clear to Auscultation and Non Labored Respirations; Negative Accessory Resp Muscle Use
Cardiac: Regular Rhythm and S1/S2
GI: Soft, Nontender, Nondistended and Normal Bowel Sounds
Skin: Warm and Dry
Neuro: Awake, Alert, Oriented and AO x 3
Psych: Calm and Intact Judgement/Insight
Data Reviewed
-
CT Scan: Report Reviewed by me
Labs: Labs Reviewed by me
[2024-07-10 09:37] LABS: Hematocrit 36.9 % (37.0-47.0); Hemoglobin 12.8 g/dL (12.0-16.0); Mean Corp Hgb Conc. 34.7 g/dL (33.0-37.0); Mean Corpuscular Hgb 30.3 pg (27.0-31.0); Mean Corpuscular Volume 87.4 fL (81.0-99.0); Mean Platelet Volume 9.5 fL (7.4-10.4); Platelet Count 209 10^3/uL (130-400); Red Blood Cell Count 4.22 10^6/uL (4.20-5.40); Red Cell Dist. Width 14.1 % (11.5-14.5); White Blood Cell Count 8.8 10^3/uL (4.8-10.8)
[2024-07-10 10:19] LABS: Blood Urea Nitrogen 29 mg/dl (7-17); Calcium 10.9 mg/dl (8.4-10.2); Carbon Dioxide 22 mmol/L (22-30); Chloride 102 mmol/L (98-107); Estimated Creatinine Clearance 33 ml/min; Glucose 160 mg/dl (70-99); Potassium 3.9 mmol/L (3.5-5.1); Sodium 141 mmol/L (135-145); eGFR 33.63
[2024-07-10 12:13] LABS: Glucose - Point of Care 156 mg/dl (70-99)
[2024-07-10] MEDS: NOVOLOG FLEXPEN-MODERATE RESISTANCE 1 UNITS SC ×2 (12:19→17:24)
--- NOTE | 2024-07-10 12:56 | CON.ID ---
Consultation
-
Date/Time Consultation Requested: 07/09/2024 1610
Date/Time Consultation Performed: 07/10/2024 1230
Requesting Provider: Dr. Lazcano
Performing Provider: Dr. Morales
Reason for Consultation: Bacteremia
Chief Complaint / Past History
History of Present Illness
Joanne Velez is a 73-year-old female being evaluated at the request of Dr. Lazcano in regards to bacteremia. History is obtained from chart review, along with patient interview.
The patient is known to the Infectious Diseases service, having been seen in early June for a complicated urinary tract infection. At that time she had had several days of feeling sluggishness leading to generalized weakness and resulting in a
fall while coming out of the bathroom. Ultimately she required assistance to get up and EMS was called. She remained hospitalized from 06/17 through 06/25, during which time she was diagnosed with right-sided pyelonephritis and found to have
obstructive uropathy. A stent needed to be placed. Blood cultures during that admission were found to be positive for Proteus mirabilis. Ultimately she was discharged on 06/25, to continue with an additional 5 days of amoxicillin.
She reports following her return home she continued to have some right-sided flank discomfort. She was in contact with her Urologist and tried Azo, but without significant improvement. While at home, she denied any dysuria or hematuria.
Ultimately, her right flank discomfort persisted and she was advised to come back to the emergency room for further evaluation. At home she denies any fevers or chills. She notes that she always feels 'cold'. Workup in the emergency room included
blood cultures, which have now been shown to be positive for Proteus again, and a urine culture revealed the presence of Klebsiella. Infectious Diseases is asked to comment upon further antimicrobial management.
Past History
Additional Past Medical History:
DM type II
HTN
Dyslipidemia
CKD
Hx bladder CA
Right staghorn calculi
Additional Past Surgical History:
Cholecystectomy
Allergy History:
No Known Allergies Allergy (Verified 07/07/24 14:51)
Current Antibiotics:
Ceftriaxone 2 g IV every 24 hours
Social History
Tobacco: Non-Smoker
Alcohol: None
Drug: None
Personal:
Living: With Family
Employment: Retired
Family History
Family History: Not Pertinent
Review of Systems
Vital Signs
Temp Pulse Resp BP Pulse Ox
97.8 F 78 18 146/77 95
07/10/24 08:09 07/10/24 08:41 07/10/24 08:09 07/10/24 08:41 07/10/24 08:32
Physical Exam
Physical Exam
Constitutional: No Acute Distress, Well Developed, Comfortable, Chronically Ill and Non-toxic
Head: Normocephalic
Eyes: Pupils Equal, Pupils Round, No Conjunctival Hemorrhage and Sclera Anicteric
Oral: No Thrush and No Ulcers
Cardiovascular: Regular Rate and S1/S2; Negative S3/S4 or Murmur
Pulmonary: Clear; Negative Wheezes, Rales or Rhonchi
Gastrointestinal: Soft, Non Tender and Non Distended
Genito-Urinary: CVA Tenderness (right)
Extremities: Negative Edema, Cyanosis or Erythema
Skin: Warm and Dry; Negative Rash or Jaundice
Neurological: Awake, Alert and AO x 3
Psychological: Calm
.
Lab / Diagnostic Study Results
07/10/24 09:29
07/10/24 09:29
Abs Immat Gran (auto) 0.1 10^3/uL (0-0.05) H 07/07/24 14:59
Absolute Neuts (auto) 6.5 10^3/uL (1.4-6.5) 07/07/24 14:59
Absolute Lymphs (auto) 0.8 10^3/uL (1.2-3.4) L 07/07/24 14:59
Absolute Monos (auto) 0.5 10^3/uL (0.1-0.6) 07/07/24 14:59
Absolute Basos (auto) 0.0 10^3/uL (0-0.2) 07/07/24 14:59
Immature Gran % 0.6 % (0-0.5) H 07/07/24 14:59
Neutrophils % 82.0 % (42.2-75.2) H 07/07/24 14:59
Lymphocytes % 10.2 % (20.5-51.1) L 07/07/24 14:59
Monocytes % 6.8 % (1.7-9.3) 07/07/24 14:59
Eosinophils % 0.1 % (0-6) 07/07/24 14:59
Basophils % 0.3 % (0-2) 07/07/24 14:59
Ur Squamous Epith Cells 11-15 /LPF (Few) 07/07/24 16:06
Microbiology Results
Micro:
07/08/24 09:23 Blood Culture - Preliminary
Blood/Venous No Growth in 48 hours- Final report to follow
07/07/24 18:09 Blood Culture - Final
Blood/Venous Proteus mirabilis
Gram Stain - Final
07/07/24 16:06 Urine Culture - Final
Urine Klebsiella pneumoniae
Imaging:
07/08/2024 CT abdomen/pelvis without contrast: A 4 cm right staghorn calculi status noted. A right double-J ureteral stent is in satisfactory position without hydronephrosis. Patient is status post right hemicolectomy with ileocolic anastomosis. A
calcified uterine fibroid is noted.
06/17/2024 CT chest/abdomen/pelvis: There is a staghorn calculus within the right calyces, and extending into the right renal pelvis. There are small foci of air within the right renal pelvis adjacent to the calculus. No areas seen within the renal
parenchyma or findings to suggest emphysematous pyelonephritis. There is moderate diffuse atrophy of the left kidney, and no evidence for air within the left collecting system. No air identified within the bladder. Patient is status post
cholecystectomy. No evidence for biliary ductal dilatation. Please see full dictation for additional detail. Film personally viewed.
Assessment / Plan
Recurrent Proteus bacteremia
Klebsiella UTI
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
DM type II
HTN
Dyslipidemia
CKD
Hx bladder CA
Right staghorn calculi
Recommendations:
Continue antibiotics, but narrow to cefazolin 2 gm IV q12h (dosed for renal insufficiency)
Will repeat blood cultures x 2 to confirm clearance.
Monitor white count temperature curve.
[2024-07-10] MEDS: ANCEF 10 IV (14:41)
[2024-07-10 15:15] VITALS: BP 116/42
--- NOTE | 2024-07-10 16:27 | PTCARENOTE ---
Pt AAO x3, FOLEY; OOB in chair for most of shift, ambulates to BR with assist x1/walker; laura OOB activity but ambulates slowly. VSS. On room air- pulse ox 96%, no SOB noted. Abd large, soft, laura PO well. Voiding in BR without difficulty. Pt c/o
Rt lower back pain; good effect with prn IV Dilaudid; pt stated 'That is the only thing that helps'. Resting in bed at present. Will continue to monitor.
[2024-07-10 17:40] LABS: Glucose - Point of Care 164 mg/dl (70-99)
[2024-07-10 21:18] LABS: Glucose - Point of Care 148 mg/dl (70-99)
[2024-07-10] MEDS: SENOKOT-S 1 TABLET PO (23:04)
[2024-07-10 23:20] VITALS: BP 153/88
[2024-07-11] MEDS: ANCEF 10 IV ×2 (01:09→14:09)
[2024-07-11] MEDS: TYLENOL 650 MG PO (01:52)
[2024-07-11] MEDS: DILAUDID 0.5 MG IV ×5 (03:24→22:01)
[2024-07-11 07:32] VITALS: BP 142/71
[2024-07-11 08:17] LABS: Hematocrit 37.4 % (37.0-47.0); Hemoglobin 12.7 g/dL (12.0-16.0); Mean Corpuscular Hgb 30.8 pg (27.0-31.0); Mean Corpuscular Volume 90.6 fL (81.0-99.0); Mean Platelet Volume 10.1 fL (7.4-10.4); Platelet Count 188 10^3/uL (130-400); Red Blood Cell Count 4.13 10^6/uL (4.20-5.40); White Blood Cell Count 8.2 10^3/uL (4.8-10.8)
[2024-07-11 08:19] LABS: Glucose - Point of Care 141 mg/dl (70-99)
[2024-07-11] MEDS: NOVOLOG FLEXPEN-MODERATE RESISTANCE SC ×2 (09:03→12:56)
[2024-07-11] MEDS: NORVASC 5 MG PO (09:07)
[2024-07-11] MEDS: LOW STRENGTH ASPIRIN 81 MG PO (09:07)
[2024-07-11] MEDS: LIPITOR 40 MG PO (09:07)
[2024-07-11] MEDS: DULCOLAX 10 MG RECTAL (09:07)
[2024-07-11 09:12] LABS: Blood Urea Nitrogen 28 mg/dl (7-17); Calcium 11.2 mg/dl (8.4-10.2); Carbon Dioxide 24 mmol/L (22-30); Chloride 103 mmol/L (98-107); Estimated Creatinine Clearance 33 ml/min; Glucose 151 mg/dl (70-99); Magnesium 1.6 mg/dl (1.6-2.3); Potassium 3.8 mmol/L (3.5-5.1); Sodium 140 mmol/L (135-145); eGFR 33.63
[2024-07-11] MEDS: HEPARIN 5000 UNITS SC (09:13)
[2024-07-11] MEDS: SENOKOT-S 1 TABLET PO ×2 (09:13→21:57)
[2024-07-11] MEDS: NOVOLOG MIX 70/30 FLEXPEN 20 UNITS SC ×2 (09:15→17:21)
--- NOTE | 2024-07-11 11:08 | W.PN.URO.CBU ---
Today's Communication / Plan
-
NPO after midnight tonight for right PCN tomorrow
Assessment / Plan
-
right staghorn stone
persistent proteus bacteremia; Klebsiella UTI
right flank pain
pt's pain unusual for stent pain- but will follow- continue to try and covert to oral meds
difficult situation given size of stone, size of pt (IR previously did not feel they could place perc tube) and opposite side renal atrophy
no acute indication for stent change- the stone is likely souce of infx
---
[facility] willing to attempt right PCN placement tomorrow: will ask Hospitalist to hold haparin dosing
Diagnosis
-
Date of Service: July 11, 2024
-
Patient Diagnosis:
Right staghorn stone
Bilateral medical renal disease
proteus bacteremia; Klebsiella UTI
flank pain
s/p stent placement
---
History of superficial bladder cancer
Subjective
-
Feels better at present time
No significant right flank pain currently
Objective
-
Vital Signs
Temp Pulse Resp BP Pulse Ox
98.3 F 88 20 142/71 97
07/11/24 07:32 07/11/24 07:32 07/11/24 07:32 07/11/24 07:32 07/11/24 07:32
Intake and Output
07/10/24 07/11/24 07/12/24
06:59 06:59 06:59
Intake Total 560 / 560 660 / 660
Output Total 400 / 400
Balance 560 / 560 260 / 260
Intake:
Oral fluids 560 / 560 660 / 660
Output:
Urine, Voided 400 / 400
Other:
Number of approximated MODERATE 2 4
amounts of urine
Number of approximated LARGE 1
amounts of urine
Laboratory Results
07/11/24 07:47
07/11/24 07:47
Review of Systems
-
Constitutional: Fatigue
Respiratory: No Symptoms
Cardiac: No Symptoms
Abdomen/GI: Abdominal Pain
Neurological: No Symptoms
Physical Exam
-
General - well nourished, no acute distress
Abdomen - soft, non-tender
Skin - warm & dry with no rash
Neuro - AOx3, no motor deficits
--- NOTE | 2024-07-11 11:34 | W.PN.HOSP.TC ---
Today's Communication/Plan
-
see A/P
Assessment / Plan
Assessment / Plan
HPI: 73 y.o female with diabetes and h/o staghorn calculus s/p R JJ stent on 06/18 presented with worsening right sided flank pain.
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 She had a R JJ stent placed on 06/18
she has continued and worsening pain to the R flank, acutely worsening over past few days she is scheduled to have stone removed on 07/27 but states pain is too severe. She has no fevers or chills. Denies dysuria.
A/P:
# Proteus bacteremia
# Right-sided pyelonephritis
# Infected right staghorn calculus
07/07 blood culture growing Proteus, 07/08 repeat blood culture no growth
Cont Rocephin at 2 g IV every 24 hours,
ID on board
# Right staghorn calculus
# Renal colic
Status post stent placement by Dr. Baker 06/18
Urology following, recc right PCN by IR tomorrow
continue pain control
# Stage IIIb
Avoid nephrotoxic drugs/NSAIDs
Trend creatinine
# Type 2 diabetes
Continue carb controlled diet, 70/30 insulin 20 units twice a day, sliding scale insulin
# Essential hypertension
Continue amlodipine
# History of bladder cancer
# Hyperlipidemia
Continue statin
DVT prophylaxis�subcu heparin (on hold prior to PCN)
Full code
Anticipated Discharge: > 48 hours
Subjective/Interval History
-
Date of Service: July 11, 2024
Objective Data
-
Labs:
Laboratory Results
07/11/24
07:47
WBC 8.2
Hgb 12.7
Hct 37.4
Plt Count 188
Sodium 140
Potassium 3.8
Chloride 103
Carbon Dioxide 24
BUN 28 H
Creatinine 1.6 H
Glucose 151 H
Calcium 11.2 H
Vital Signs:
Vital Signs
Temp Pulse Resp BP Pulse Ox
36.8 C 88 20 142/71 97
07/11/24 07:32 07/11/24 07:32 07/11/24 07:32 07/11/24 07:32 07/11/24 07:32
I&O
07/10/24 07/11/24 07/12/24
06:59 06:59 06:59
Intake Total 560 / 560 660 / 660
Output Total 400 / 400
Balance 560 / 560 260 / 260
Review of Systems
-
History Source: Patient
Genitourinary: Reports Flank Pain (R flank intermittent pain)
Physical Exam
-
General: Well Developed, Well Nourished, No Apparent Distress, Comfortable and Conversant; Negative Respiratory Distress
HEENT: Normocephalic, Atraumatic, Nose Appears Normal and Ears Appear Normal; Negative Oxygen
Respiratory: Clear to Auscultation and Non Labored Respirations; Negative Accessory Resp Muscle Use
Cardiac: Regular Rhythm and S1/S2
GI: Soft, Nontender, Nondistended and Normal Bowel Sounds
Skin: Warm and Dry
Neuro: Awake, Alert, Oriented and AO x 3
Psych: Calm and Intact Judgement/Insight
Data Reviewed
-
CT Scan: Report Reviewed by me
Labs: Labs Reviewed by me
[2024-07-11] MEDS: MAGNESIUM SULFATE 50 IV (12:16)
[2024-07-11 12:47] LABS: Glucose - Point of Care 137 mg/dl (70-99)
--- NOTE | 2024-07-11 13:13 | W.PN.ID1 ---
Date of Service
Date of Service: July 11, 2024
Today's Communication
Continue antibiotics.
Assessment / Plan
Recurrent Proteus mirabilis bacteremia
Klebsiella UTI
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
DM type II
HTN
Dyslipidemia
CKD
Hx bladder CA
Right staghorn calculi
Recommendations:
Continue cefazolin 2 gm IV q12h (dosed for renal insufficiency)
Repeat blood cultures to confirm clearance are pending.
Patient for right PCN placement tomorrow.
Monitor white count temperature curve.
����������������������������������������������������������
Chief Complaint
-: UTI and Bacteremia
Subjective / Review of Systems
Review of Systems: No Fever, No Chills and Abdominal Pain (Intermittent right flank)
Vital Signs / Physical Exam
Vital Signs
Vital Signs
Temp Pulse Resp BP Pulse Ox
98.3 F 88 20 142/71 97
07/11/24 07:32 07/11/24 07:32 07/11/24 07:32 07/11/24 07:32 07/11/24 07:32
Physical Exam
Constitutional: No Acute Distress, Chronically Ill and Non-toxic
Eyes: Sclera Anicteric
Cardiovascular: Regular Rate and S1/S2; Negative S3/S4
Pulmonary: Symmetric and Non Labored
Gastrointestinal: Non Distended
Skin: Dry; Negative Rash or Jaundice
Neurological: Awake and Alert
Psychological: Calm
Objective Data
Lab Data
Lab Results
07/11/24 07:47
07/11/24 07:47
Estimated Creat Clear 33 ml/min 07/11/24 07:47
Total Bilirubin 1.4 mg/dl (0.2-1.3) H 07/07/24 14:59
AST 38 U/L (14-36) H 07/07/24 14:59
ALT 25 U/L (0-35) 07/07/24 14:59
Alkaline Phosphatase 240 U/L (38-126) H 07/07/24 14:59
Most recent labs reviewed.
Micro Results:
07/08/24 09:23 Blood Culture - Preliminary
Blood/Venous No Growth in 72 hours- Final report to follow
07/10/24 15:16 Blood Culture - Pending
Blood/Venous
07/10/24 14:18 Blood Culture - Pending
Blood/Venous
07/07/24 18:09 Blood Culture - Final
Blood/Venous Proteus mirabilis
Gram Stain - Final
07/07/24 16:06 Urine Culture - Final
Urine Klebsiella pneumoniae
Imaging:
07/08/2024 CT abdomen/pelvis without contrast: A 4 cm right staghorn calculi status noted. A right double-J ureteral stent is in satisfactory position without hydronephrosis. Patient is status post right hemicolectomy with ileocolic anastomosis. A
calcified uterine fibroid is noted.
06/17/2024 CT chest/abdomen/pelvis: There is a staghorn calculus within the right calyces, and extending into the right renal pelvis. There are small foci of air within the right renal pelvis adjacent to the calculus. No areas seen within the renal
parenchyma or findings to suggest emphysematous pyelonephritis. There is moderate diffuse atrophy of the left kidney, and no evidence for air within the left collecting system. No air identified within the bladder. Patient is status post
cholecystectomy. No evidence for biliary ductal dilatation. Please see full dictation for additional detail. Film personally viewed.
[2024-07-11 15:07] VITALS: BP 127/72
[2024-07-11 16:59] LABS: Glucose - Point of Care 182 mg/dl (70-99)
[2024-07-11] MEDS: NOVOLOG FLEXPEN-MODERATE RESISTANCE 1 UNITS SC (17:22)
[2024-07-11 21:46] LABS: Glucose - Point of Care 173 mg/dl (70-99)
[2024-07-12 00:13] VITALS: BP 131/88
[2024-07-12] MEDS: ANCEF 10 IV ×2 (01:32→13:13)
[2024-07-12] MEDS: DILAUDID 0.5 MG IV ×6 (01:33→21:42)
[2024-07-12] MEDS: FLUSH (NSS) 1 FLUSH IV (01:33)
[2024-07-12 06:19] LABS: Glucose - Point of Care 165 mg/dl (70-99)
[2024-07-12 07:46] VITALS: BP 144/71
[2024-07-12] MEDS: NOVOLOG FLEXPEN-MODERATE RESISTANCE SC (07:55)
[2024-07-12] MEDS: SENOKOT-S 1 TABLET PO ×2 (07:56→19:49)
[2024-07-12] MEDS: LOW STRENGTH ASPIRIN 81 MG PO (07:56)
[2024-07-12] MEDS: NORVASC 5 MG PO (07:56)
[2024-07-12] MEDS: LIPITOR 40 MG PO (07:59)
[2024-07-12] MEDS: NOVOLOG MIX 70/30 FLEXPEN SC (08:08)
[2024-07-12 09:05] LABS: Hematocrit 37.7 % (37.0-47.0); Hemoglobin 12.7 g/dL (12.0-16.0); Mean Corp Hgb Conc. 33.7 g/dL (33.0-37.0); Mean Corpuscular Hgb 31.1 pg (27.0-31.0); Mean Corpuscular Volume 92.4 fL (81.0-99.0); Mean Platelet Volume 11.1 fL (7.4-10.4); Platelet Count 187 10^3/uL (130-400); Red Blood Cell Count 4.08 10^6/uL (4.20-5.40); Red Cell Dist. Width 14.2 % (11.5-14.5); White Blood Cell Count 9.6 10^3/uL (4.8-10.8)
--- NOTE | 2024-07-12 09:35 | W.PN.URO.CBU ---
Today's Communication / Plan
-
To [facility] for attempted right PCN
Assessment / Plan
-
right staghorn stone
persistent proteus bacteremia; Klebsiella UTI
right flank pain
pt's pain unusual for stent pain- but will follow- continue to try and covert to oral meds
difficult situation given size of stone, size of pt (IR previously did not feel they could place perc tube) and opposite side renal atrophy
no acute indication for stent change- the stone is likely souce of infx
---
[facility] willing to attempt right PCN placement today: will ask Hospitalist to hold haparin dosing
Diagnosis
-
Date of Service: July 12, 2024
-
Patient Diagnosis:
Right staghorn stone
Bilateral medical renal disease
proteus bacteremia; Klebsiella UTI
flank pain
s/p stent placement
---
History of superficial bladder cancer
Subjective
-
c/o persistent right flank/back pain
Objective
-
Vital Signs
Temp Pulse Resp BP Pulse Ox
98.2 F 83 18 144/71 97
07/12/24 07:46 07/12/24 07:46 07/12/24 07:46 07/12/24 07:46 07/12/24 07:46
Intake and Output
07/11/24 07/12/24 07/13/24
06:59 06:59 06:59
Intake Total 660 / 660 600 / 600
Output Total 400 / 400
Balance 260 / 260 600 / 600
Intake:
Oral fluids 660 / 660 600 / 600
Output:
Urine, Voided 400 / 400
Other:
Number of approximated MODERATE 4 3
amounts of urine
Laboratory Results
07/12/24 07:22
Review of Systems
-
Constitutional: Fatigue
Respiratory: No Symptoms
Cardiac: No Symptoms
Abdomen/GI: Abdominal Pain
: No Symptoms
Neurological: No Symptoms
Physical Exam
-
General - well nourished, no acute distress
Abdomen - soft, right CVAT, no distension
Skin - warm & dry with no rash
Neuro - AOx3, no motor deficits
--- NOTE | 2024-07-12 10:20 | W.PN.HOSP.TC ---
Today's Communication/Plan
-
see A/P
Assessment / Plan
Assessment / Plan
HPI: 73 y.o female with diabetes and h/o staghorn calculus s/p R JJ stent on 06/18 presented with worsening right sided flank pain.
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 She had a R JJ stent placed on 06/18
she has continued and worsening pain to the R flank, acutely worsening over past few days she is scheduled to have stone removed on 07/27 but states pain is too severe. She has no fevers or chills. Denies dysuria.
A/P:
# Proteus bacteremia
# Right-sided pyelonephritis
# Infected right staghorn calculus
07/07 blood culture growing Proteus, 07/08 repeat blood culture no growth
Cont Rocephin at 2 g IV every 24 hours,
ID on board
# Right staghorn calculus
# Renal colic
Status post stent placement by Dr. Baker 06/18
Urology following, recc right PCN by IR
continue pain control
# Stage IIIb
Avoid nephrotoxic drugs/NSAIDs
Trend creatinine
# Type 2 diabetes
Continue carb controlled diet, 70/30 insulin 20 units twice a day, sliding scale insulin
# Essential hypertension
Continue amlodipine
# History of bladder cancer
# Hyperlipidemia
Continue statin
DVT prophylaxis�subcu heparin (on hold prior to PCN)
Full code
Anticipated Discharge: 24 - 48 hours
Subjective/Interval History
-
Date of Service: July 12, 2024
Objective Data
-
Labs:
Laboratory Results
07/12/24
07:22
WBC 9.6
Hgb 12.7
Hct 37.7
Plt Count 187
Sodium Pending
Potassium Pending
Chloride Pending
Carbon Dioxide Pending
BUN Pending
Creatinine Pending
Glucose Pending
Calcium Pending
Vital Signs:
Vital Signs
Temp Pulse Resp BP Pulse Ox
36.8 C 83 18 144/71 97
07/12/24 07:46 07/12/24 07:46 07/12/24 07:46 07/12/24 07:46 07/12/24 07:46
I&O
07/11/24 07/12/24 07/13/24
06:59 06:59 06:59
Intake Total 660 / 660 600 / 600
Output Total 400 / 400
Balance 260 / 260 600 / 600
Review of Systems
-
History Source: Patient
Genitourinary: Reports Flank Pain (R flank intermittent pain)
Physical Exam
-
General: Well Developed, Well Nourished, No Apparent Distress, Comfortable and Conversant; Negative Respiratory Distress
HEENT: Normocephalic, Atraumatic, Nose Appears Normal and Ears Appear Normal; Negative Oxygen
Respiratory: Clear to Auscultation and Non Labored Respirations; Negative Accessory Resp Muscle Use
Cardiac: Regular Rhythm and S1/S2
GI: Soft, Nontender, Nondistended and Normal Bowel Sounds
Skin: Warm and Dry
Neuro: Awake, Alert, Oriented and AO x 3
Psych: Calm and Intact Judgement/Insight
Data Reviewed
-
CT Scan: Report Reviewed by me
Labs: Labs Reviewed by me
[2024-07-12 11:34] LABS: Glucose - Point of Care 178 mg/dl (70-99)
[2024-07-12] MEDS: NOVOLOG FLEXPEN-MODERATE RESISTANCE 1 UNITS SC ×2 (11:38→17:45)
[2024-07-12 12:16] LABS: Blood Urea Nitrogen 26 mg/dl (7-17); Calcium 11.1 mg/dl (8.4-10.2); Carbon Dioxide 29 mmol/L (22-30); Chloride 99 mmol/L (98-107); Estimated Creatinine Clearance 31 ml/min; Glucose 154 mg/dl (70-99); Potassium 4.3 mmol/L (3.5-5.1); Sodium 141 mmol/L (135-145); eGFR 31.27
[2024-07-12] MEDS: FLEET MINERAL OIL ENEMA 133 ML RECTAL (13:12)
[2024-07-12 14:26] VITALS: BP 149/67; BP_SYST 82
[2024-07-12 16:00] VITALS: BP 148/82; BP 152/79; BP_SYST 87
--- NOTE | 2024-07-12 16:16 | PTCARENOTE ---
Fleets edema given. No relief at this time.
--- NOTE | 2024-07-12 16:39 | PTCARENOTE ---
Arrived from IR with PCNU CDI. Patient c/o 10 pain to R flank. Drainage is blood tinged, lorraine. Call witt within reach.
[2024-07-12 16:49] LABS: Glucose - Point of Care 180 mg/dl (70-99)
[2024-07-12 16:58] VITALS: BP 161/77
--- NOTE | 2024-07-12 17:15 | W.PN.ID1 ---
Date of Service
Date of Service: July 12, 2024
Today's Communication
Continue antibiotics.
Assessment / Plan
Recurrent Proteus mirabilis bacteremia
Klebsiella UTI
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
Right staghorn calculi
DM type II
HTN
Dyslipidemia
CKD
Hx bladder CA
Recommendations:
Continue cefazolin 2 gm IV q12h (dosed for renal insufficiency)
Repeat blood cultures without growth.
Patient S/P right PCN placement.
Monitor white count temperature curve.
����������������������������������������������������������
Chief Complaint
-: UTI and Bacteremia
Subjective / Review of Systems
Review of Systems: No Fever and No Chills
Vital Signs / Physical Exam
Vital Signs
Vital Signs
Temp Pulse Resp BP Pulse Ox
97.4 F 96 18 161/77 98
07/12/24 16:58 07/12/24 16:58 07/12/24 16:58 07/12/24 16:58 07/12/24 16:58
Physical Exam
Constitutional: No Acute Distress, Chronically Ill and Non-toxic
Eyes: Sclera Anicteric
Cardiovascular: Regular Rate and S1/S2; Negative S3/S4
Pulmonary: Symmetric and Non Labored
Gastrointestinal: Non Distended
Skin: Dry; Negative Rash or Jaundice
Neurological: Awake and Alert
Psychological: Calm
Objective Data
Lab Data
Lab Results
07/12/24 07:22
07/12/24 07:22
Estimated Creat Clear 31 ml/min 07/12/24 07:22
Total Bilirubin 1.4 mg/dl (0.2-1.3) H 07/07/24 14:59
AST 38 U/L (14-36) H 07/07/24 14:59
ALT 25 U/L (0-35) 07/07/24 14:59
Alkaline Phosphatase 240 U/L (38-126) H 07/07/24 14:59
Most recent labs reviewed.
Micro Results:
07/10/24 15:16 Blood Culture - Preliminary
Blood/Venous No Growth in 48 hours- Final report to follow
07/10/24 14:18 Blood Culture - Preliminary
Blood/Venous No Growth in 48 hours- Final report to follow
07/08/24 09:23 Blood Culture - Preliminary
Blood/Venous No Growth in 4 days- Final report to follow
07/07/24 18:09 Blood Culture - Final
Blood/Venous Proteus mirabilis
Gram Stain - Final
07/07/24 16:06 Urine Culture - Final
Urine Klebsiella pneumoniae
Imaging:
07/08/2024 CT abdomen/pelvis without contrast: A 4 cm right staghorn calculi status noted. A right double-J ureteral stent is in satisfactory position without hydronephrosis. Patient is status post right hemicolectomy with ileocolic anastomosis. A
calcified uterine fibroid is noted.
06/17/2024 CT chest/abdomen/pelvis: There is a staghorn calculus within the right calyces, and extending into the right renal pelvis. There are small foci of air within the right renal pelvis adjacent to the calculus. No areas seen within the renal
parenchyma or findings to suggest emphysematous pyelonephritis. There is moderate diffuse atrophy of the left kidney, and no evidence for air within the left collecting system. No air identified within the bladder. Patient is status post
cholecystectomy. No evidence for biliary ductal dilatation. Please see full dictation for additional detail. Film personally viewed.
--- NOTE | 2024-07-12 17:21 | CM ---
met with patient at bedside.patient lives with her in [facility] with no pedro,her bed and bath is on the first level.she amb I and is I with her adl.she has avn through [facility] and has no hx of ip rehab
PCP:dr homer blackman and dr cassandra MARCUS
PMH:type 2 dm,bladder cancer,staghorn calculus sp r jj stent,hld
patient is adm with worsening right flank pain sp r jj stent.she is on iv rocephin for persistent proteus bacteremia,,seen by id and urology who rec pcn tube placement by ir.Plan:dc home with [facility]
[2024-07-12] MEDS: NOVOLOG MIX 70/30 FLEXPEN 20 UNITS SC (17:44)
[2024-07-12] MEDS: TYLENOL 650 MG PO (19:48)
[2024-07-12 21:46] LABS: Glucose - Point of Care 159 mg/dl (70-99)
[2024-07-12 23:40] VITALS: BP 142/81
[2024-07-13] MEDS: ROXICODONE 5 MG PO ×3 (00:11→23:26)
[2024-07-13] MEDS: ANCEF 10 IV ×2 (02:51→13:18)
[2024-07-13] MEDS: ULTRAM 50 MG PO ×2 (03:00→20:36)
[2024-07-13] MEDS: DILAUDID 0.5 MG IV (04:58)
[2024-07-13 08:12] VITALS: BP 145/66
--- NOTE | 2024-07-13 08:19 | W.PN.URO.CBU ---
Today's Communication / Plan
-
Cleared for discharge home from [facility]
Plans for definitive stone management arranged as outpatient
Assessment / Plan
-
right staghorn stone
persistent proteus bacteremia: repeat cultures 07/10/24 negative
Klebsiella UTI
right flank pain: diminished after right NU stent placement 07/12/24
Diagnosis
-
Date of Service: July 13, 2024
-
Patient Diagnosis:
Right staghorn stone
Bilateral medical renal disease
proteus bacteremia; Klebsiella UTI
flank pain
s/p JJ stent placement
s/p right nephroureteral stent placement 07/12/24
---
History of superficial bladder cancer
Subjective
-
Diminished right flank pain after NU stnet placement 07/12/24
Objective
-
Vital Signs
Temp Pulse Resp BP Pulse Ox
97.7 F 81 18 145/66 96
07/13/24 08:12 07/13/24 08:12 07/13/24 08:12 07/13/24 08:12 07/13/24 08:12
Intake and Output
07/12/24 07/13/24 07/14/24
06:59 06:59 06:59
Intake Total 600 / 600 365 / 365
Output Total 765 / 765
Balance 600 / 600 -400 / -400
Intake:
Oral fluids 600 / 600 240 / 240
IV fluids (Total) 125 / 125
NSS 125 / 125
Output:
Urinary Drain Output (Total) 525 / 525
Right Nephrostomy 525 / 525
Urine, Voided 240 / 240
Other:
Number of approximated SMALL 3
amounts of urine
Number of approximated MODERATE 3
amounts of urine
Repeat blood cultures 07/10/24 negative
Review of Systems
-
Constitutional: Fatigue
Respiratory: No Symptoms
Cardiac: No Symptoms
Abdomen/GI: Abdominal Pain
: No Symptoms
Neurological: No Symptoms
Physical Exam
-
General - well nourished, no acute distress
Abdomen - soft, non-tender
Genitalia - normal
Skin - warm & dry with no rash
Neuro - AOx3, no motor deficits
Counseling
-
Cleared for discharge home from [facility]
[2024-07-13 08:23] LABS: Glucose - Point of Care 178 mg/dl (70-99)
[2024-07-13] MEDS: NOVOLOG FLEXPEN-MODERATE RESISTANCE 1 UNITS SC (08:24)
[2024-07-13] MEDS: NOVOLOG MIX 70/30 FLEXPEN 20 UNITS SC ×2 (08:25→17:15)
[2024-07-13] MEDS: SENOKOT-S 1 TABLET PO ×2 (08:25→20:35)
[2024-07-13] MEDS: NORVASC 5 MG PO (08:25)
[2024-07-13] MEDS: LIPITOR 40 MG PO (08:25)
[2024-07-13] MEDS: LOW STRENGTH ASPIRIN 81 MG PO (08:25)
--- NOTE | 2024-07-13 08:41 | W.PN.HOSP.TC ---
Today's Communication/Plan
-
DC home today
Assessment / Plan
Assessment / Plan
HPI: 73 y.o female with diabetes and h/o staghorn calculus s/p R JJ stent on 06/18 presented with worsening right sided flank pain.
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 She had a R JJ stent placed on 06/18
she has continued and worsening pain to the R flank, acutely worsening over past few days she is scheduled to have stone removed on 07/27 but states pain is too severe. She has no fevers or chills. Denies dysuria.
A/P:
# Proteus bacteremia
# Right-sided pyelonephritis
# Infected right staghorn calculus
07/07 blood culture growing Proteus, 07/08 repeat blood culture no growth
Rocephin -> Ancef -> PO Keflex at discharge
ID on board
# Right staghorn calculus
# Renal colic
Status post stent placement by Dr. Baker 06/18
s/p PCN by IR 07/12
Urology cleared for discharge, recc outpt follow up
# Stage IIIb
Avoid nephrotoxic drugs/NSAIDs
Trend creatinine
# Type 2 diabetes
Continue carb controlled diet, 70/30 insulin 20 units twice a day, sliding scale insulin
# Essential hypertension
Continue amlodipine
# History of bladder cancer
# Hyperlipidemia
Continue statin
DVT prophylaxis�subcu heparin (on hold prior to PCN)
Full code
DW Uro Dr. Baker
Anticipated Discharge: Today
Subjective/Interval History
-
Date of Service: July 13, 2024
Objective Data
-
Labs:
Laboratory Results
07/13/24
08:06
WBC Pending
Hgb Pending
Hct Pending
Plt Count Pending
Sodium Pending
Potassium Pending
Chloride Pending
Carbon Dioxide Pending
BUN Pending
Creatinine Pending
Glucose Pending
Calcium Pending
Vital Signs:
Vital Signs
Temp Pulse Resp BP Pulse Ox
36.5 C 81 18 145/66 96
07/13/24 08:12 07/13/24 08:25 07/13/24 08:12 07/13/24 08:25 07/13/24 08:12
I&O
07/12/24 07/13/24 07/14/24
06:59 06:59 06:59
Intake Total 600 / 600 365 / 365
Output Total 765 / 765
Balance 600 / 600 -400 / -400
Review of Systems
-
History Source: Patient
Physical Exam
-
General: Well Developed, Well Nourished, No Apparent Distress, Comfortable and Conversant; Negative Respiratory Distress
HEENT: Normocephalic, Atraumatic, Nose Appears Normal and Ears Appear Normal; Negative Oxygen
Respiratory: Clear to Auscultation and Non Labored Respirations; Negative Accessory Resp Muscle Use
Cardiac: Regular Rhythm and S1/S2
GI: Soft, Nontender, Nondistended and Normal Bowel Sounds
Skin: Warm and Dry
Neuro: Awake, Alert, Oriented and AO x 3
Psych: Calm and Intact Judgement/Insight
Data Reviewed
-
CT Scan: Report Reviewed by me
Labs: Labs Reviewed by me
[2024-07-13 09:00] LABS: Hematocrit 38.1 % (37.0-47.0); Hemoglobin 12.7 g/dL (12.0-16.0); Mean Corp Hgb Conc. 33.3 g/dL (33.0-37.0); Mean Corpuscular Hgb 30.6 pg (27.0-31.0); Mean Corpuscular Volume 91.8 fL (81.0-99.0); Mean Platelet Volume 10.4 fL (7.4-10.4); Platelet Count 172 10^3/uL (130-400); Red Blood Cell Count 4.15 10^6/uL (4.20-5.40); Red Cell Dist. Width 14.3 % (11.5-14.5); White Blood Cell Count 12.5 10^3/uL (4.8-10.8)
--- NOTE | 2024-07-13 09:49 | CM ---
Joanne is being discharged to home today. Pt referred back to [facility] for resumption of services.
[facility]
[2024-07-13 10:15] LABS: Blood Urea Nitrogen 27 mg/dl (7-17); Calcium 11.3 mg/dl (8.4-10.2); Carbon Dioxide 26 mmol/L (22-30); Chloride 102 mmol/L (98-107); Estimated Creatinine Clearance 29 ml/min; Glucose 166 mg/dl (70-99); Magnesium 1.8 mg/dl (1.6-2.3); Potassium 4.2 mmol/L (3.5-5.1); Sodium 140 mmol/L (135-145)
[2024-07-13 12:02] LABS: Glucose - Point of Care 128 mg/dl (70-99)
[2024-07-13] MEDS: NOVOLOG FLEXPEN-MODERATE RESISTANCE SC (12:12)
[2024-07-13] MEDS: FLUAD (65 yr+) 2024-2025 FORMULA 0.5 ML IM (13:35)
[2024-07-13] MEDS: PREVNAR 20 0.5 ML IM (13:39)
--- NOTE | 2024-07-13 15:13 | W.PN.ID1 ---
Date of Service
Date of Service: July 13, 2024
Today's Communication
Continue antibiotics. Transition to Keflex at discharge, to continue through 07/20/2024
Assessment / Plan
Recurrent Proteus mirabilis bacteremia
Klebsiella UTI
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
Right staghorn calculi
DM type II
HTN
Dyslipidemia
CKD
Hx bladder CA
Recommendations:
Overall clinically improved from initial presentation.
Repeat blood cultures without growth.
At discharge, transition to oral Keflex, to continue through 07/20/2024
����������������������������������������������������������
Chief Complaint
-: UTI and Bacteremia
Subjective / Review of Systems
Patient seen and examined. Reports no pain. Right PCN placed yesterday.
Review of Systems: No Fever and No Chills
Vital Signs / Physical Exam
Vital Signs
Vital Signs
Temp Pulse Resp BP Pulse Ox
97.7 F 81 18 145/66 96
07/13/24 08:12 07/13/24 08:25 07/13/24 08:12 07/13/24 08:25 07/13/24 08:12
Physical Exam
Constitutional: No Acute Distress, Chronically Ill and Non-toxic
Eyes: Sclera Anicteric
Cardiovascular: Regular Rate and S1/S2; Negative S3/S4
Pulmonary: Symmetric and Non Labored
Gastrointestinal: Non Distended
Genito-Urinary: Other (Right PCN with clear urine)
Skin: Dry; Negative Rash or Jaundice
Neurological: Awake and Alert
Psychological: Calm
Objective Data
Lab Data
Lab Results
07/13/24 08:06
07/13/24 08:06
Estimated Creat Clear 29 ml/min 07/13/24 08:06
Total Bilirubin 1.4 mg/dl (0.2-1.3) H 07/07/24 14:59
AST 38 U/L (14-36) H 07/07/24 14:59
ALT 25 U/L (0-35) 07/07/24 14:59
Alkaline Phosphatase 240 U/L (38-126) H 07/07/24 14:59
Most recent labs reviewed.
Micro Results:
07/10/24 14:18 Blood Culture - Preliminary
Blood/Venous No Growth in 72 hours- Final report to follow
07/08/24 09:23 Blood Culture - Final
Blood/Venous No Growth - Final Report
07/10/24 15:16 Blood Culture - Preliminary
Blood/Venous No Growth in 48 hours- Final report to follow
07/07/24 18:09 Blood Culture - Final
Blood/Venous Proteus mirabilis
Gram Stain - Final
07/07/24 16:06 Urine Culture - Final
Urine Klebsiella pneumoniae
Imaging:
07/08/2024 CT abdomen/pelvis without contrast: A 4 cm right staghorn calculi status noted. A right double-J ureteral stent is in satisfactory position without hydronephrosis. Patient is status post right hemicolectomy with ileocolic anastomosis. A
calcified uterine fibroid is noted.
06/17/2024 CT chest/abdomen/pelvis: There is a staghorn calculus within the right calyces, and extending into the right renal pelvis. There are small foci of air within the right renal pelvis adjacent to the calculus. No areas seen within the renal
parenchyma or findings to suggest emphysematous pyelonephritis. There is moderate diffuse atrophy of the left kidney, and no evidence for air within the left collecting system. No air identified within the bladder. Patient is status post
cholecystectomy. No evidence for biliary ductal dilatation. Please see full dictation for additional detail. Film personally viewed.
Care Review
Plan reviewed with: Physician (Hospitalist)
[2024-07-13 15:38] VITALS: BP 126/81
[2024-07-13 17:05] LABS: Glucose - Point of Care 219 mg/dl (70-99)
[2024-07-13] MEDS: DULCOLAX RECTAL (17:16)
[2024-07-13] MEDS: NOVOLOG FLEXPEN-MODERATE RESISTANCE 3 UNITS SC (17:16)
[2024-07-13 21:13] LABS: Glucose - Point of Care 169 mg/dl (70-99)
[2024-07-13 23:18] VITALS: BP 138/69
[2024-07-14] MEDS: ANCEF 10 IV ×2 (02:26→13:00)
[2024-07-14] MEDS: ROXICODONE 5 MG PO ×2 (04:24→23:55)
[2024-07-14 07:25] VITALS: BP 132/76
[2024-07-14 07:32] LABS: Glucose - Point of Care 161 mg/dl (70-99)
[2024-07-14] MEDS: LOW STRENGTH ASPIRIN 81 MG PO (08:27)
[2024-07-14] MEDS: SENOKOT-S 1 TABLET PO ×2 (08:27→20:59)
[2024-07-14] MEDS: NOVOLOG FLEXPEN-MODERATE RESISTANCE 1 UNITS SC ×2 (08:28→12:50)
[2024-07-14] MEDS: NORVASC 5 MG PO (08:28)
[2024-07-14] MEDS: NOVOLOG MIX 70/30 FLEXPEN 20 UNITS SC ×2 (08:28→17:05)
[2024-07-14] MEDS: LIPITOR 40 MG PO (08:28)
[2024-07-14 09:10] LABS: Mean Corp Hgb Conc. 33.3 g/dL (33.0-37.0); Mean Platelet Volume 11.2 fL (7.4-10.4); Platelet Count 185 10^3/uL (130-400); Red Cell Dist. Width 14.5 % (11.5-14.5); White Blood Cell Count 10.5 10^3/uL (4.8-10.8)
[2024-07-14 09:44] LABS: Blood Urea Nitrogen 29 mg/dl (7-17); Calcium 11.2 mg/dl (8.4-10.2); Carbon Dioxide 29 mmol/L (22-30); Chloride 100 mmol/L (98-107); Estimated Creatinine Clearance 29 ml/min; Glucose 152 mg/dl (70-99); Potassium 4.9 mmol/L (3.5-5.1); Sodium 140 mmol/L (135-145)
--- NOTE | 2024-07-14 10:18 | W.PN.HOSP.TC ---
Today's Communication/Plan
-
updated on the phone [phone].
He is concerned about pt's generalized weakness.
Will get PT OT eval prior to discharge
Assessment / Plan
Assessment / Plan
HPI: 73 y.o female with diabetes and h/o staghorn calculus s/p R JJ stent on 06/18 presented with worsening right sided flank pain.
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 She had a R JJ stent placed on 06/18
she has continued and worsening pain to the R flank, acutely worsening over past few days she is scheduled to have stone removed on 07/27 but states pain is too severe. She has no fevers or chills. Denies dysuria.
A/P:
# Proteus bacteremia
# Right-sided pyelonephritis
# Infected right staghorn calculus
07/07 blood culture growing Proteus, 07/08 repeat blood culture no growth
Rocephin -> Ancef -> PO Keflex at discharge through 07/20/2024
ID on board
# Right staghorn calculus
# Renal colic
Status post stent placement by Dr. Baker 06/18
s/p PCN by IR 07/12
Urology cleared for discharge, recc outpt follow up
# Stage IIIb
Avoid nephrotoxic drugs/NSAIDs
Trend creatinine
# Type 2 diabetes
would like to lift diet restriction and asked to add protein shake
carb controlled diet changed to regular with ensure daily
Cont 70/30 insulin 20 units twice a day,
cont sliding scale insulin for coverage
# Essential hypertension
Continue amlodipine
# History of bladder cancer
# Hyperlipidemia
Continue statin
# Generalized weakness
PT OT eval
DVT prophylaxis�subcu heparin (on hold prior to PCN)
Full code
updated on the phone [phone]. He is concerned about pt's generalized weakness. Will get PT OT eval prior to discharge
Anticipated Discharge: Within 24 hours
Subjective/Interval History
-
Date of Service: July 14, 2024
Objective Data
-
Labs:
Laboratory Results
07/14/24
07:39
WBC 10.5
Hgb 12.0
Hct 36.0 L
Plt Count 185
Sodium 140
Potassium 4.9
Chloride 100
Carbon Dioxide 29
BUN 29 H
Creatinine 1.8 H
Glucose 152 H
Calcium 11.2 H
Vital Signs:
Vital Signs
Temp Pulse Resp BP Pulse Ox
36.4 C 87 18 132/76 99
07/14/24 07:25 07/14/24 08:28 07/14/24 07:25 07/14/24 08:28 07/14/24 07:25
I&O
07/13/24 07/14/24 07/15/24
06:59 06:59 06:59
Intake Total 365 / 365 840 / 840
Output Total 765 / 765 375 / 375
Balance -400 / -400 465 / 465
Review of Systems
-
All other systems: Reviewed and negative
Physical Exam
-
General: Well Developed, Well Nourished, No Apparent Distress, Comfortable and Conversant; Negative Respiratory Distress
HEENT: Normocephalic, Atraumatic, Nose Appears Normal and Ears Appear Normal; Negative Oxygen
Respiratory: Clear to Auscultation and Non Labored Respirations; Negative Accessory Resp Muscle Use
Cardiac: Regular Rhythm and S1/S2
GI: Soft, Nontender, Nondistended and Normal Bowel Sounds
Genito-urinary: Nephrostomy Tubes (R)
Skin: Warm and Dry
Neuro: Awake, Alert, Oriented and AO x 3
Psych: Calm and Intact Judgement/Insight
Data Reviewed
-
Labs: Labs Reviewed by me
[2024-07-14 11:36] LABS: Glucose - Point of Care 179 mg/dl (70-99)
[2024-07-14] MEDS: TYLENOL 650 MG PO (12:59)
[2024-07-14 14:55] VITALS: BP 127/61; PULSE 94
--- NOTE | 2024-07-14 15:27 | W.PN.ID1 ---
Date of Service
Date of Service: July 14, 2024
Today's Communication
Continue antibiotics.
Assessment / Plan
Recurrent Proteus mirabilis bacteremia
- suspected upper urinary source
Klebsiella UTI
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
Right staghorn calculi
DM type II
HTN
Dyslipidemia
CKD
Hx bladder CA
Recommendations:
Overall clinically improved from initial presentation.
Repeat blood cultures without growth.
Continue with cefazolin while inpatient.
At discharge, transition to oral Keflex, to continue through 07/20/2024
����������������������������������������������������������
Chief Complaint
-: UTI and Bacteremia
Subjective / Review of Systems
Review of Systems: No Fever and No Chills
Vital Signs / Physical Exam
Vital Signs
Vital Signs
Temp Pulse Resp BP Pulse Ox
97.5 F 87 18 132/76 99
07/14/24 07:25 07/14/24 08:28 07/14/24 07:25 07/14/24 08:28 07/14/24 07:25
Physical Exam
Constitutional: No Acute Distress, Chronically Ill and Non-toxic
Eyes: Sclera Anicteric
Cardiovascular: Regular Rate and S1/S2; Negative S3/S4
Pulmonary: Symmetric and Non Labored
Gastrointestinal: Soft and Non Distended
Genito-Urinary: Other (Right PCN with clear urine.)
Skin: Dry; Negative Rash or Jaundice
Neurological: Awake and Alert
Psychological: Calm
Objective Data
Lab Data
Lab Results
07/14/24 07:39
07/14/24 07:39
Estimated Creat Clear 29 ml/min 07/14/24 07:39
Total Bilirubin 1.4 mg/dl (0.2-1.3) H 07/07/24 14:59
AST 38 U/L (14-36) H 07/07/24 14:59
ALT 25 U/L (0-35) 07/07/24 14:59
Alkaline Phosphatase 240 U/L (38-126) H 07/07/24 14:59
Most recent labs reviewed.
Micro Results:
07/10/24 14:18 Blood Culture - Preliminary
Blood/Venous No Growth in 4 days- Final report to follow
07/10/24 15:16 Blood Culture - Preliminary
Blood/Venous No Growth in 72 hours- Final report to follow
07/08/24 09:23 Blood Culture - Final
Blood/Venous No Growth - Final Report
07/07/24 18:09 Blood Culture - Final
Blood/Venous Proteus mirabilis
Gram Stain - Final
07/07/24 16:06 Urine Culture - Final
Urine Klebsiella pneumoniae
Imaging:
07/08/2024 CT abdomen/pelvis without contrast: A 4 cm right staghorn calculi status noted. A right double-J ureteral stent is in satisfactory position without hydronephrosis. Patient is status post right hemicolectomy with ileocolic anastomosis. A
calcified uterine fibroid is noted.
06/17/2024 CT chest/abdomen/pelvis: There is a staghorn calculus within the right calyces, and extending into the right renal pelvis. There are small foci of air within the right renal pelvis adjacent to the calculus. No areas seen within the renal
parenchyma or findings to suggest emphysematous pyelonephritis. There is moderate diffuse atrophy of the left kidney, and no evidence for air within the left collecting system. No air identified within the bladder. Patient is status post
cholecystectomy. No evidence for biliary ductal dilatation. Please see full dictation for additional detail. Film personally viewed.
[2024-07-14 15:31] VITALS: BP 115/69
[2024-07-14 16:43] LABS: Glucose - Point of Care 255 mg/dl (70-99)
[2024-07-14] MEDS: NOVOLOG FLEXPEN-MODERATE RESISTANCE 5 UNITS SC (17:05)
[2024-07-14] MEDS: ULTRAM 50 MG PO (18:08)
[2024-07-14 21:24] LABS: Glucose - Point of Care 235 mg/dl (70-99)
[2024-07-14 23:00] VITALS: BP 149/76
[2024-07-15] MEDS: ANCEF 10 IV (01:25)
[2024-07-15] MEDS: TYLENOL 650 MG PO ×4 (06:08→21:50)
--- NOTE | 2024-07-15 06:16 | W.PN.URO.CBU ---
Today's Communication / Plan
-
fit for d/c from Uro standpoint
Assessment / Plan
-
right staghorn stone
persistent proteus bacteremia: repeat cultures 07/10/24 negative
Klebsiella UTI
right flank pain: diminished after right NU stent placement 07/12/24
Diagnosis
-
Date of Service: July 15, 2024
-
Patient Diagnosis:
Right staghorn stone
Bilateral medical renal disease
Proteus bacteremia; Klebsiella UTI
s/p JJ stent placement
s/p right nephroureteral stent placement 07/12/24
---
History of superficial bladder cancer
Objective
-
Vital Signs
Temp Pulse Resp BP Pulse Ox
98.5 F 74 20 149/76 94
07/14/24 23:00 07/14/24 23:00 07/14/24 23:00 07/14/24 23:00 07/14/24 23:00
Intake and Output
07/13/24 07/14/24 07/15/24
06:59 06:59 06:59
Intake Total 365 / 365 840 / 840 360 / 360
Output Total 765 / 765 375 / 375 335 / 335
Balance -400 / -400 465 / 465 25 / 25
Intake:
Oral fluids 240 / 240 840 / 840 360 / 360
IV fluids (Total) 125 / 125
NSS 125 / 125
Output:
Urinary Drain Output (Total) 525 / 525 375 / 375 335 / 335
Right Nephrostomy 525 / 525 375 / 375 335 / 335
Urine, Voided 240 / 240
Other:
Number of approximated SMALL 3
amounts of urine
Number of approximated MODERATE 2 4
amounts of urine
Physical Exam
-
General - well developed, well nourished, no acute distress
Chest - clear bilaterally
Abdomen - soft, non-tender, positive bowel sounds, no CVAT, no incisional pain or distention
Genitalia - normal
Rectal - normal
Skin - warm & dry with no rash
Neuro - AOx3, no motor deficits
Extremities - no clubbing, no cyanosis, no edema
Incision - clean, dry
Dressing - clean, dry, intact
[2024-07-15 07:07] LABS: Hematocrit 33.5 % (37.0-47.0); Hemoglobin 11.4 g/dL (12.0-16.0); Mean Corpuscular Hgb 30.7 pg (27.0-31.0); Mean Corpuscular Volume 90.3 fL (81.0-99.0); Mean Platelet Volume 10.1 fL (7.4-10.4); Platelet Count 161 10^3/uL (130-400); Red Blood Cell Count 3.71 10^6/uL (4.20-5.40); Red Cell Dist. Width 14.1 % (11.5-14.5); White Blood Cell Count 8.8 10^3/uL (4.8-10.8)
[2024-07-15 07:21] LABS: Blood Urea Nitrogen 27 mg/dl (7-17); Calcium 10.7 mg/dl (8.4-10.2); Carbon Dioxide 29 mmol/L (22-30); Chloride 100 mmol/L (98-107); Estimated Creatinine Clearance 33 ml/min; Glucose 173 mg/dl (70-99); Potassium 3.6 mmol/L (3.5-5.1); Sodium 139 mmol/L (135-145); eGFR 33.63
[2024-07-15 07:34] LABS: Glucose - Point of Care 177 mg/dl (70-99)
[2024-07-15 07:35] VITALS: BP 143/75
--- NOTE | 2024-07-15 09:46 | W.PN.ID1 ---
Date of Service
Date of Service: July 15, 2024
Today's Communication
Transition to Keflex.
Assessment / Plan
Recurrent Proteus mirabilis bacteremia
- suspected upper urinary tract source
Klebsiella recovered from urine.
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
Right staghorn calculi
DM type II
HTN
Dyslipidemia
CKD
Hx bladder CA
Recommendations:
Overall clinically improved from initial presentation.
Repeat blood cultures without growth.
Transition to Keflex, to continue through 07/20/2024
Monitor white count and temperature curve.
����������������������������������������������������������
Chief Complaint
-: UTI and Bacteremia
Subjective / Review of Systems
Review of Systems: No Fever and No Chills
Vital Signs / Physical Exam
Vital Signs
Vital Signs
Temp Pulse Resp BP Pulse Ox
97.6 F 73 18 143/75 93
07/15/24 07:35 07/15/24 07:35 07/15/24 07:35 07/15/24 07:35 07/15/24 07:35
Physical Exam
Constitutional: No Acute Distress, Comfortable, Chronically Ill and Non-toxic
Eyes: Sclera Anicteric
Cardiovascular: Regular Rate and S1/S2; Negative S3/S4
Pulmonary: Symmetric and Non Labored; Negative Wheezes
Gastrointestinal: Soft and Non Distended
Genito-Urinary: Other (Right PCN with clear urine.)
Extremities: Negative Edema or Cyanosis
Skin: Dry; Negative Rash or Jaundice
Neurological: Awake and Alert
Psychological: Calm
Objective Data
Lab Data
Lab Results
07/15/24 06:48
07/15/24 06:48
Estimated Creat Clear 33 ml/min 07/15/24 06:48
Total Bilirubin 1.4 mg/dl (0.2-1.3) H 07/07/24 14:59
AST 38 U/L (14-36) H 07/07/24 14:59
ALT 25 U/L (0-35) 07/07/24 14:59
Alkaline Phosphatase 240 U/L (38-126) H 07/07/24 14:59
Most recent labs reviewed.
Micro Results:
07/10/24 15:16 Blood Culture - Preliminary
Blood/Venous No Growth in 4 days- Final report to follow
07/10/24 14:18 Blood Culture - Preliminary
Blood/Venous No Growth in 4 days- Final report to follow
07/08/24 09:23 Blood Culture - Final
Blood/Venous No Growth - Final Report
07/07/24 18:09 Blood Culture - Final
Blood/Venous Proteus mirabilis
Gram Stain - Final
07/07/24 16:06 Urine Culture - Final
Urine Klebsiella pneumoniae
Imaging:
07/08/2024 CT abdomen/pelvis without contrast: A 4 cm right staghorn calculi status noted. A right double-J ureteral stent is in satisfactory position without hydronephrosis. Patient is status post right hemicolectomy with ileocolic anastomosis. A
calcified uterine fibroid is noted.
06/17/2024 CT chest/abdomen/pelvis: There is a staghorn calculus within the right calyces, and extending into the right renal pelvis. There are small foci of air within the right renal pelvis adjacent to the calculus. No areas seen within the renal
parenchyma or findings to suggest emphysematous pyelonephritis. There is moderate diffuse atrophy of the left kidney, and no evidence for air within the left collecting system. No air identified within the bladder. Patient is status post
cholecystectomy. No evidence for biliary ductal dilatation. Please see full dictation for additional detail. Film personally viewed.
[2024-07-15] MEDS: NOVOLOG FLEXPEN-MODERATE RESISTANCE 1 UNITS SC (09:48)
[2024-07-15] MEDS: LIPITOR 40 MG PO (09:49)
[2024-07-15] MEDS: SENOKOT-S 1 TABLET PO ×2 (09:49→20:15)
[2024-07-15] MEDS: NORVASC 5 MG PO (09:49)
[2024-07-15] MEDS: LOW STRENGTH ASPIRIN 81 MG PO (09:49)
[2024-07-15] MEDS: NOVOLOG MIX 70/30 FLEXPEN 20 UNITS SC ×2 (09:51→18:11)
--- NOTE | 2024-07-15 09:57 | W.PN.HOSP.TC ---
Today's Communication/Plan
-
see A/P
Assessment / Plan
Assessment / Plan
HPI: 73 y.o female with diabetes and h/o staghorn calculus s/p R JJ stent on 06/18 presented with worsening right sided flank pain.
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 She had a R JJ stent placed on 06/18
she has continued and worsening pain to the R flank, acutely worsening over past few days she is scheduled to have stone removed on 07/27 but states pain is too severe. She has no fevers or chills. Denies dysuria.
A/P:
# Proteus bacteremia
# Right-sided pyelonephritis
# Infected right staghorn calculus
07/07 blood culture growing Proteus, 07/08 repeat blood culture no growth
Rocephin -> Ancef -> PO Keflex at discharge through 07/20/2024
ID on board
# Right staghorn calculus
# Renal colic
Status post stent placement by Dr. Baker 06/18
s/p PCN by IR 07/12
Urology cleared for discharge, recc outpt follow up
# Stage IIIb
Avoid nephrotoxic drugs/NSAIDs
Trend creatinine
# Type 2 diabetes
would like to lift diet restriction and asked to add protein shake
carb controlled diet changed to regular with ensure daily
Cont 70/30 insulin 20 units twice a day,
cont sliding scale insulin for coverage
# Essential hypertension
Continue amlodipine
# History of bladder cancer
# Hyperlipidemia
Continue statin
# Generalized weakness
PT OT recc home PT vs SNF
Pt has elected SNF, CM for dispo
DVT prophylaxis�subcu heparin (on hold prior to PCN)
Full code
dispo: PT OT recc home PT vs SNF. Pt has elected SNF, CM for dispo
updated on the phone [phone].
DW CM
total time spent 51 min
Anticipated Discharge: 24 - 48 hours
Subjective/Interval History
-
Date of Service: July 15, 2024
Objective Data
-
Labs:
Laboratory Results
07/15/24
06:48
WBC 8.8
Hgb 11.4 L
Hct 33.5 L
Plt Count 161
Sodium 139
Potassium 3.6 D
Chloride 100
Carbon Dioxide 29
BUN 27 H
Creatinine 1.6 H
Glucose 173 H
Calcium 10.7 H
Vital Signs:
Vital Signs
Temp Pulse Resp BP Pulse Ox
36.4 C 73 18 143/75 93
07/15/24 07:35 07/15/24 07:35 07/15/24 07:35 07/15/24 07:35 07/15/24 07:35
I&O
07/14/24 07/15/24 07/16/24
06:59 06:59 06:59
Intake Total 840 / 840 360 / 360
Output Total 375 / 375 335 / 335
Balance 465 / 465 25 / 25
Review of Systems
-
All other systems: Reviewed and negative
Physical Exam
-
General: Well Developed, Well Nourished, No Apparent Distress, Comfortable and Conversant; Negative Respiratory Distress
HEENT: Normocephalic, Atraumatic, Nose Appears Normal and Ears Appear Normal; Negative Oxygen
Respiratory: Clear to Auscultation and Non Labored Respirations; Negative Accessory Resp Muscle Use
Cardiac: Regular Rhythm and S1/S2
GI: Soft, Nontender, Nondistended and Normal Bowel Sounds
Genito-urinary: Nephrostomy Tubes (R)
Skin: Warm and Dry
Neuro: Awake, Alert, Oriented and AO x 3
Psych: Calm and Intact Judgement/Insight
Data Reviewed
-
Labs: Labs Reviewed by me
[2024-07-15 11:52] LABS: Glucose - Point of Care 226 mg/dl (70-99)
[2024-07-15] MEDS: KEFLEX 500 MG PO ×3 (12:48→21:50)
[2024-07-15] MEDS: NOVOLOG FLEXPEN-MODERATE RESISTANCE 3 UNITS SC (12:57)
--- NOTE | 2024-07-15 14:58 | CM ---
CM following re: discharge planning.
Reviewed pt's chart, met with pt and pt's at bedside.
PT and OT evaluations noted - SNF level of care recommended. Both pt and her are aware, expressed her agreement. Pt stated she is very week and will not be able to function at home and she strongly requested going to a rehab. A list of SNFs
provided to the pt and her . Following SNFs preferred: [facility], [facility], [facility] or [facility]. A referral to above SNFs made. Awaiting for determination.
D/C plan: preferred SNF.
CM will follow to assit pt with discharge to a preferred SNF
[2024-07-15 15:20] VITALS: BP 140/66
[2024-07-15 15:24] VITALS: BP 130/70; PULSE 69; O2SAT 94
[2024-07-15 15:53] LABS: Glucose - Point of Care 128 mg/dl (70-99)
--- NOTE | 2024-07-15 16:15 | PTCARENOTE ---
patient has not voided today, right PCN draining 250ml of clear yellow urine. patient assisted to BSC but unable to urinate. bladder scan 28ml. Dr Thornton aware. no new orders at this time. plan of care on going.
[2024-07-15] MEDS: NOVOLOG FLEXPEN-MODERATE RESISTANCE SC (17:28)
[2024-07-15 21:19] LABS: Glucose - Point of Care 218 mg/dl (70-99)
[2024-07-15 23:30] VITALS: BP 148/76
[2024-07-16] MEDS: TYLENOL 650 MG PO ×4 (02:03→23:16)
[2024-07-16 07:00] VITALS: BP 151/75
[2024-07-16 07:53] LABS: Hematocrit 35.9 % (37.0-47.0); Hemoglobin 11.8 g/dL (12.0-16.0); Mean Corp Hgb Conc. 32.9 g/dL (33.0-37.0); Mean Corpuscular Hgb 29.3 pg (27.0-31.0); Mean Corpuscular Volume 89.1 fL (81.0-99.0); Mean Platelet Volume 10.5 fL (7.4-10.4); Platelet Count 178 10^3/uL (130-400); Red Blood Cell Count 4.03 10^6/uL (4.20-5.40); Red Cell Dist. Width 14.3 % (11.5-14.5); White Blood Cell Count 8.2 10^3/uL (4.8-10.8)
[2024-07-16 08:12] LABS: Glucose - Point of Care 158 mg/dl (70-99)
[2024-07-16 08:23] LABS: Blood Urea Nitrogen 26 mg/dl (7-17); Calcium 10.9 mg/dl (8.4-10.2); Carbon Dioxide 27 mmol/L (22-30); Chloride 101 mmol/L (98-107); Estimated Creatinine Clearance 35 ml/min; Glucose 171 mg/dl (70-99); Potassium 4.1 mmol/L (3.5-5.1); Sodium 138 mmol/L (135-145); eGFR 36.34
[2024-07-16] MEDS: NOVOLOG MIX 70/30 FLEXPEN 20 UNITS SC (08:42)
[2024-07-16] MEDS: NOVOLOG FLEXPEN-MODERATE RESISTANCE 1 UNITS SC ×3 (08:43→18:41)
[2024-07-16] MEDS: NORVASC 5 MG PO (08:44)
[2024-07-16] MEDS: LIPITOR 40 MG PO (08:44)
[2024-07-16] MEDS: SENOKOT-S 1 TABLET PO ×2 (08:44→20:34)
[2024-07-16] MEDS: KEFLEX 500 MG PO ×4 (08:44→21:41)
[2024-07-16] MEDS: LOW STRENGTH ASPIRIN 81 MG PO (08:44)
[2024-07-16] MEDS: ROXICODONE 5 MG PO ×3 (08:47→18:44)
--- NOTE | 2024-07-16 09:13 | W.PN.HOSP.TC ---
Today's Communication/Plan
-
see A/P
Assessment / Plan
Assessment / Plan
HPI: 73 y.o female with diabetes and h/o staghorn calculus s/p R JJ stent on 06/18 presented with worsening right sided flank pain.
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 She had a R JJ stent placed on 06/18
she has continued and worsening pain to the R flank, acutely worsening over past few days she is scheduled to have stone removed on 07/27 but states pain is too severe. She has no fevers or chills. Denies dysuria.
A/P:
# Proteus bacteremia
# Right-sided pyelonephritis
# Infected right staghorn calculus
07/07 blood culture growing Proteus, 07/08 repeat blood culture no growth
Rocephin -> Ancef -> PO Keflex through 07/20/2024
ID on board
# Right staghorn calculus
# Renal colic
Status post stent placement by Dr. Baker 06/18
s/p PCN by IR 07/12
Urology recc outpt follow up
# lower back pain
Tylenol to ATC and PRN
Lidocaine patch lower back
tramadol and oxycodone PRN
# Stage IIIb
Avoid nephrotoxic drugs/NSAIDs
Trend creatinine, stable at 1.5 today
# Type 2 diabetes
would like to lift diet restriction and asked to add protein shake
carb controlled diet changed to regular with ensure daily
Cont 70/30 insulin, 25 units twice a day,
cont sliding scale insulin for coverage
# Essential hypertension
Continue amlodipine
# History of bladder cancer
# Hyperlipidemia
Continue statin
# Generalized weakness
PT OT recc home PT vs SNF
Pt has elected SNF, CM for dispo
DVT prophylaxis�subcu heparin (on hold prior to PCN)
Full code
dispo: PT OT recc home PT vs SNF. Pt has elected [facility], for dispo
Anticipated Discharge: 24 - 48 hours
Subjective/Interval History
-
Date of Service: July 16, 2024
Objective Data
-
Labs:
Laboratory Results
07/16/24
07:16
WBC 8.2
Hgb 11.8 L
Hct 35.9 L
Plt Count 178
Sodium 138
Potassium 4.1
Chloride 101
Carbon Dioxide 27
BUN 26 H
Creatinine 1.5 H
Glucose 171 H
Calcium 10.9 H
Vital Signs:
Vital Signs
Temp Pulse Resp BP Pulse Ox
36.5 C 79 18 148/78 99
07/16/24 07:00 07/16/24 08:44 07/16/24 07:00 07/16/24 08:44 07/16/24 08:36
I&O
07/15/24 07/16/24 07/17/24
06:59 06:59 06:59
Intake Total 360 / 360
Output Total 335 / 335 575 / 575
Balance 25 / 25 -575 / -575
Review of Systems
-
Musculoskeletal: Reports Other (lower back pain)
Physical Exam
-
General: Well Developed, Well Nourished, No Apparent Distress, Comfortable, Conversant and Appears Chronically Ill; Negative Respiratory Distress
HEENT: Normocephalic, Atraumatic, Nose Appears Normal and Ears Appear Normal; Negative Oxygen
Respiratory: Clear to Auscultation and Non Labored Respirations; Negative Accessory Resp Muscle Use
Cardiac: Regular Rhythm and S1/S2
GI: Soft, Nontender, Nondistended and Normal Bowel Sounds
Genito-urinary: Nephrostomy Tubes (R)
Skin: Warm and Dry
Neuro: Awake, Alert, Oriented and AO x 3
Psych: Calm and Intact Judgement/Insight
Data Reviewed
-
Labs: Labs Reviewed by me
[2024-07-16] MEDS: LIDOCAINE 4% PATCH 2 PATCH TOPICAL (10:18)
[2024-07-16 12:20] LABS: Glucose - Point of Care 174 mg/dl (70-99)
[2024-07-16] MEDS: TYLENOL PO (12:46)
[2024-07-16 15:00] VITALS: BP 144/77
--- NOTE | 2024-07-16 15:56 | PTCARENOTE ---
Pt AAO x3, FOLEY; OOB to chair/BSC with assist x1; pt laura OOB activity but refuses to attempt ambulation to BR d/t back pain. VSS. On room air- pulse ox 96%, no SOB noted. Abd obese, soft, laura PO. Voids small amts on BSC; Rt PCN tube P/I clear lt
lorraine urine. Resting in bed at present. Will continue to monitor.
[2024-07-16 16:56] LABS: Glucose - Point of Care 189 mg/dl (70-99)
[2024-07-16] MEDS: NOVOLOG MIX 70/30 FLEXPEN 25 UNITS SC (18:40)
[2024-07-16 22:03] LABS: Glucose - Point of Care 191 mg/dl (70-99)
[2024-07-16 23:14] VITALS: BP 123/68
[2024-07-17] MEDS: TYLENOL 650 MG PO ×2 (06:42→12:49)
[2024-07-17 08:36] VITALS: BP 141/71
[2024-07-17 08:45] LABS: Glucose - Point of Care 184 mg/dl (70-99)
[2024-07-17 09:28] LABS: Hematocrit 34.5 % (37.0-47.0); Hemoglobin 11.6 g/dL (12.0-16.0); Mean Corp Hgb Conc. 33.6 g/dL (33.0-37.0); Mean Corpuscular Hgb 29.7 pg (27.0-31.0); Mean Corpuscular Volume 88.5 fL (81.0-99.0); Mean Platelet Volume 10.5 fL (7.4-10.4); Platelet Count 182 10^3/uL (130-400); Red Cell Dist. Width 14.5 % (11.5-14.5); White Blood Cell Count 8.8 10^3/uL (4.8-10.8)
[2024-07-17] MEDS: KEFLEX 500 MG PO ×2 (09:57→12:49)
[2024-07-17] MEDS: LIPITOR 40 MG PO (09:58)
[2024-07-17] MEDS: LOW STRENGTH ASPIRIN 81 MG PO (09:58)
[2024-07-17] MEDS: NORVASC 5 MG PO (09:58)
[2024-07-17] MEDS: SENOKOT-S 1 TABLET PO (09:58)
[2024-07-17] MEDS: LIDOCAINE 4% PATCH 2 PATCH TOPICAL (09:59)
--- NOTE | 2024-07-17 09:59 | CM ---
Addendum entered by Sanam Dill 07/17/24 15:12:
CM met with Joanne at bedside to discuss transfer to SNF. She has agreed to transfer to [facility] which she says she has heard good things about. [facility] has accepted for admission. W/C van transport arranged for 4PM today.
I spoke to Joanne's son to notify him of plan for transfer to [facility] via w/c van. He will call to pay for cost of transport which is $120.
[facility] Report: [phone]
[facility]
Original Note:
Plan for discharge to SNF - [facility], Matthew Mcintosh and Josephine Vanegas requested by pt/. Call to facilities to determine bed availability. [facility] will call back, anticipating possible bed available later this afternoon.
Awaiting responses from Matthew MARTINEZ.
Plan: CM to follow for transfer to SNF when medically ready.
[2024-07-17] MEDS: FLUSH (NSS) 1 FLUSH IV (10:00)
[2024-07-17] MEDS: NOVOLOG FLEXPEN-MODERATE RESISTANCE 1 UNITS SC ×2 (10:01→12:49)
[2024-07-17] MEDS: NOVOLOG MIX 70/30 FLEXPEN 25 UNITS SC (10:01)
[2024-07-17 10:05] LABS: Blood Urea Nitrogen 24 mg/dl (7-17); Carbon Dioxide 26 mmol/L (22-30); Chloride 101 mmol/L (98-107); Estimated Creatinine Clearance 33 ml/min; Glucose 167 mg/dl (70-99); Potassium 3.9 mmol/L (3.5-5.1); Sodium 139 mmol/L (135-145); eGFR 33.63
[2024-07-17 10:43] VITALS: BP 127/65; PULSE 98; O2SAT 96
--- NOTE | 2024-07-17 11:07 | W.PN.ID1 ---
Date of Service
Date of Service: July 17, 2024
Today's Communication
Continue current antibiotics.
Assessment / Plan
Recurrent Proteus mirabilis bacteremia
- suspected upper urinary tract source
Klebsiella recovered from urine.
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
Right staghorn calculi
Low back pain
- CT with multilevel lumbar degenerative disc disease noted.
DM type II
HTN
Dyslipidemia
CKD
Hx bladder CA
Recommendations:
Patient remains afebrile. White count remains normal.
Overall clinically improved from initial presentation.
Repeat blood cultures without growth.
Continue Keflex through 07/20/2024.
Monitor white count and temperature curve.
����������������������������������������������������������
Chief Complaint
-: UTI and Bacteremia
Subjective / Review of Systems
Patient seen and examined. Reports ongoing low back discomfort.
Review of Systems: No Fever and No Chills
Vital Signs / Physical Exam
Vital Signs
Vital Signs
Temp Pulse Resp BP Pulse Ox
97.9 F 71 18 141/71 96
07/17/24 08:36 07/17/24 08:36 07/17/24 08:36 07/17/24 09:58 07/17/24 08:36
Physical Exam
Constitutional: No Acute Distress, Comfortable, Chronically Ill and Non-toxic
Eyes: Sclera Anicteric
Cardiovascular: Regular Rate and S1/S2; Negative S3/S4
Pulmonary: Symmetric and Non Labored; Negative Wheezes
Gastrointestinal: Soft and Non Distended
Genito-Urinary: Other (Right PCN with clear urine.)
Extremities: Negative Edema or Cyanosis
Musculoskeletal: Negative Spinal Tenderness
Skin: Dry; Negative Rash or Jaundice
Neurological: Awake and Alert
Psychological: Calm
Objective Data
Lab Data
Lab Results
07/17/24 09:01
07/17/24 09:01
Estimated Creat Clear 33 ml/min 07/17/24 09:01
Total Bilirubin 1.4 mg/dl (0.2-1.3) H 07/07/24 14:59
AST 38 U/L (14-36) H 07/07/24 14:59
ALT 25 U/L (0-35) 07/07/24 14:59
Alkaline Phosphatase 240 U/L (38-126) H 07/07/24 14:59
Most recent labs reviewed.
Micro Results:
07/10/24 15:16 Blood Culture - Final
Blood/Venous No Growth - Final Report
07/10/24 14:18 Blood Culture - Final
Blood/Venous No Growth - Final Report
07/08/24 09:23 Blood Culture - Final
Blood/Venous No Growth - Final Report
07/07/24 18:09 Blood Culture - Final
Blood/Venous Proteus mirabilis
Gram Stain - Final
07/07/24 16:06 Urine Culture - Final
Urine Klebsiella pneumoniae
Imaging:
07/08/2024 CT abdomen/pelvis without contrast: A 4 cm right staghorn calculi status noted. A right double-J ureteral stent is in satisfactory position without hydronephrosis. Patient is status post right hemicolectomy with ileocolic anastomosis. A
calcified uterine fibroid is noted. Multilevel lumbar degenerative disc disease noted. Please see full dictation for additional detail. Film personally viewed.
06/17/2024 CT chest/abdomen/pelvis: There is a staghorn calculus within the right calyces, and extending into the right renal pelvis. There are small foci of air within the right renal pelvis adjacent to the calculus. No areas seen within the renal
parenchyma or findings to suggest emphysematous pyelonephritis. There is moderate diffuse atrophy of the left kidney, and no evidence for air within the left collecting system. No air identified within the bladder. Patient is status post
cholecystectomy. No evidence for biliary ductal dilatation. Please see full dictation for additional detail. Film personally viewed.
[2024-07-17 12:36] LABS: Glucose - Point of Care 193 mg/dl (70-99)
--- NOTE | 2024-07-17 12:51 | W.PN.HOSP.TC ---
Addendum entered and electronically signed by Ej Petit MD 07/17/24 13:31:
Time of discharge 38 minutes
Original Note:
Today's Communication/Plan
-
Monitor vital signs see plan
Pain control
PT/OT
Discharge planning
Continue antibiotic
Assessment / Plan
Assessment / Plan
HPI: 73 y.o female with diabetes and h/o staghorn calculus s/p R JJ stent on 06/18 presented with worsening right sided flank pain.
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 She had a R JJ stent placed on 06/18
she has continued and worsening pain to the R flank, acutely worsening over past few days she is scheduled to have stone removed on 07/27 but states pain is too severe. She has no fevers or chills. Denies dysuria.
A/P:
# Proteus bacteremia
# Right-sided pyelonephritis
# Infected right staghorn calculus
07/07 blood culture growing Proteus, 07/08 repeat blood culture no growth
Rocephin -> Ancef -> PO Keflex through 07/20/2024
ID on board
# Right staghorn calculus
# Renal colic
Status post stent placement by Dr. Baker 06/18
s/p PCN by IR 07/12
Urology recc outpt follow up
# lower back pain
Tylenol to ATC and PRN
Lidocaine patch lower back
tramadol and oxycodone PRN
# Stage IIIb
Avoid nephrotoxic drugs/NSAIDs
Trend creatinine, stable at 1.5 today
# Type 2 diabetes
would like to lift diet restriction and asked to add protein shake
carb controlled diet changed to regular with ensure daily
Cont 70/30 insulin, 25 units twice a day,
cont sliding scale insulin for coverage
# Essential hypertension
Continue amlodipine
# History of bladder cancer
# Hyperlipidemia
Continue statin
# Generalized weakness
PT OT recc home PT vs SNF
Pt has elected SNF, CM for dispo
DVT prophylaxis�subcu heparin (on hold prior to PCN)
Full code
General: Well Developed, Well Nourished, No Apparent Distress, Comfortable, Conversant and Appears Chronically Ill; Negative Respiratory Distress
HEENT: Normocephalic, Atraumatic, Nose Appears Normal and Ears Appear Normal; Negative Oxygen
Respiratory: Clear to Auscultation and Non Labored Respirations; Negative Accessory Resp Muscle Use
Cardiac: Regular Rhythm and S1/S2
GI: Soft, Nontender, Nondistended and Normal Bowel Sounds
Genito-urinary: Nephrostomy Tubes (R)
Skin: Warm and Dry
Neuro: Awake, Alert, Oriented and AO x 3
Psych: Calm and Intact Judgement/Insight
Anticipated Discharge: Within 24 hours
Subjective/Interval History
-
Date of Service: July 17, 2024
deneis nausea
Objective Data
-
Labs:
Laboratory Results
07/17/24 07/17/24
07:56 09:01
WBC Cancelled 8.8
Hgb Cancelled 11.6 L
Hct Cancelled 34.5 L
Plt Count Cancelled 182
Sodium Cancelled 139
Potassium Cancelled 3.9
Chloride Cancelled 101
Carbon Dioxide Cancelled 26
BUN Cancelled 24 H
Creatinine Cancelled 1.6 H
Glucose Cancelled 167 H
Calcium Cancelled 11.0 H
Vital Signs:
Vital Signs
Temp Pulse Resp BP Pulse Ox
97.9 F 71 18 141/71 96
07/17/24 08:36 07/17/24 08:36 07/17/24 08:36 07/17/24 09:58 07/17/24 08:36
I&O
07/16/24 07/17/24 07/18/24
06:59 06:59 06:59
Intake Total 600 / 600
Output Total 575 / 575 650 / 650 200 / 200
Balance -575 / -575 -50 / -50 -200 / -200
[2024-07-17 14:51] LABS: COVID-19 Antigen Negative (Negative)
--- NOTE | 2024-07-17 14:54 | W.DCSUMMARY ---
Discharge Summary
Discharge Data
Date of Admission: 07/07/24
Date of Discharge: 07/17/24
-
Pending Results: No
Hospital Course
73-year-old female with past medical history of diabetes, CKD stage IIIb, diabetes mellitus, essential hypertension, history of bladder cancer, hyperlipidemia came to the hospital with worsening right-sided flank pain. Known to have complicated
pyelonephritis and Proteus bacteremia. Patient was seen by urology throughout hospitalization. Patient was taken for percutaneous nephrostomy tube by IR. Patient was initially started on IV antibiotic which were later transitioned to oral
antibiotics. Blood cultures were initially growing Proteus however they continue to improve and her latest blood culture was negative prior to discharge. Patient was also eval by physical therapy who recommended SNF. Once her symptoms continue to
improve, she was then discharged to rehab with instructions to follow-up with all her physicians outpatient.
Discharge Plan
-
Patient Disposition: Group Home/SNF
Discharge Diagnosis/Procedures: Proteus bacteremia from Right-sided pyelonephritis;
Infected right staghorn calculus;
Right renal colic;
status post Right nephrostomy tube placement
Condition: Fair
Diet: As tolerated and Diabetic, Carb Controlled
Activity: As tolerated
Driving Restrictions: Not until seen by your Dr
Referrals:
Edmund Wong MD [Family Provider] - in less than 1 week
Martin Baker MD [Active] - in less than 1 week
Additional Discharge Medication Instructions: Continue antibiotic Keflex through 07/20/2024
Prescriptions:
New
lidocaine 4 % Adhesive Patch,Medicated
2 patch topical DAILY Qty: 0 0RF
cephalexin 500 mg Capsule
500 mg PO QID Qty: 0 0RF
sennosides-docusate sodium 8.6-50 mg Tablet
1 tab PO BID Qty: 0 0RF
oxycodone 5 mg Tablet
5 mg PO Q4HPRN PRN (Reason: severe pain) Qty: 10 0RF
acetaminophen 325 mg Tablet
650 mg PO Q6HPRN PRN (Reason: mild pain/ fever>100.5F) Qty: 0 0RF
acetaminophen 325 mg Tablet
650 mg PO Q6 Qty: 0 0RF
tramadol 50 mg Tablet
50 mg PO Q8HPRN PRN (Reason: moderate pain) Qty: 10 0RF
Continued
atorvastatin 40 mg tablet
40 mg PO DAILY
insulin asp prt-insulin aspart [Novolog Mix 70-30FlexPen U-100] 100 unit/mL (70-30) Insulin Pen
25 unit SC BID@0800,1700 Qty: 0 0RF
furosemide [Lasix] 20 mg tablet
20 mg PO DAILY PRN (Reason: Weight gain) Qty: 20 0RF
Rx Instructions:
If gain>2 lb/day or >4 lbs/week.
amlodipine 5 mg tablet
5 mg PO DAILY
aspirin 81 mg tablet,chewable
81 mg PO DAILY
Discharge Orders:
Discharge Patient (As Directed); Ordered 07/17/24
Ordered By: Ej Petit
Discharge Date and Time
Discharge Date/Time: 07/17/24 16:08
Print Language: SERBIAN
[2024-07-17 16:03] VITALS: BP 127/80
== END 2024-07-17 16:08 | DRG 694 ==
LOC: 4 EAST ACU 21:08
PROVIDERS: Family Medicine; Internal Medicine; Radiology Vascular & Interventional Radiology; ADMITTING PHYSICIAN Internal Medicine; ATTENDING PHYSICIAN Internal Medicine; CONSULT PHYSICIAN Specialist; EMERGENCY PHYSICIAN Emergency Medicine; FAMILY PHYSICIAN Family Medicine; OTHER PHYSICIAN Internal Medicine Infectious Disease
PROC: 0T9030Z Drainage of Right Kidney with Drainage Device, Percutaneous Approach (ICD-10-PCS; 2024-07-12)
DX: N20.0 Calculus of kidney (principal); I12.0 Hypertensive chronic kidney disease with stage 5 chronic kidney disease or end stage renal disease; N12 Tubulo-interstitial nephritis, not specified as acute or chronic; N39.0 Urinary tract infection, site not specified; R78.81 Bacteremia; E11.22 Type 2 diabetes mellitus with diabetic chronic kidney disease; N18.9 Chronic kidney disease, unspecified; E78.5 Hyperlipidemia, unspecified; N18.32 Chronic kidney disease, stage 3b
CPT/HCPCS: 50433; 74018; 74176; 80048; 80053; 81003; 81015; 82962; 83735; 85025; 85027; 87040; 87077; 87086; 87149; 87186; 87205; 87811; 90662; 90677; 96374; 96375; 96376; 97162; 97166; 97535; 99152; 99153; 99285; G0008; G0009